=== PATIENT | male | born 1930 | race Two or more races ===

== ENCOUNTER 2017-01-14 14:09 | Inpatient (IN) | payer MEDICARE ==
[~2017-01-14] VITALS: Ht 165.1 cm; Wt 68.0 kg
[2017-01-14] MEDS ORDERED: ATIVAN0.5 MG ORAL (14:17)
[2017-01-14] MEDS ORDERED: AMLODIPINE BES2.5 MG ORAL (14:17)
[2017-01-14] MEDS ORDERED: WELLBUTRIN SR100 MG ORAL (14:17)
[2017-01-14] MEDS ORDERED: LEXAPRO10 MG ORAL (14:17)
--- NOTE | 2017-01-14 14:21 | Emergency Room Report ---
History of Present Illness General Chief Complaint: Chest Pain Source: Patient, Family Member, EMS Present Illness HPI Patient is 86-year-old male who presented after increased difficulty breathing and chest pain. The patient reportedly had been given aspirin, nitroglycerin in the field he denied any fever. He reports having increased swelling. He states he previously had been taking Bumex as well as Lasix. Patient not been having any cough. He reported having some increased the with difficulty breathing. He had been taking long-acting nitrates for chest pain in the past. Patient had been having increased abdominal pain Allergies: Coded Allergies: No Known Allergies (Unverified , 01/14/17) Patient History Past Medical History: see triage record Reviewed Nursing Documentation: PMH: Agreed, PSxH: Agreed Nursing Documentation-PMH Hx Hypertension: Yes History Of Psychiatric Problem: Yes - Depression Review of Systems All Other Systems: negative except mentioned in HPI Physical Exam Vital Signs Date Time Temp Pulse Resp B/P (MAP) Pulse Ox O2 Delivery O2 Flow Rate FiO2 01/14/17 14:10 78 16 144/73 94 Sp02 EP Interpretation: reviewed, normal General Appearance: normal inspection, alert, moderate distress, Chronically Ill Head: atraumatic ENT: normal ENT inspection, hearing grossly normal, normal voice Neck: normal inspection, full range of motion, supple, no bony tend Respiratory: normal inspection, lungs clear, normal breath sounds, no respiratory distress, no retraction, no wheezing Cardiovascular #1: regular rate, rhythm, edema Gastrointestinal: normal inspection, normal bowel sounds, non tender, soft, no guarding, no hernia Genitourinary: no CVA tenderness Musculoskeletal: normal inspection, back normal, normal range of motion Neurologic: normal inspection, alert, oriented x3, responsive, boot turner III-XII nml as tested, speech normal Psychiatric: normal inspection, judgement/insight normal, mood/affect normal Skin: normal inspection, normal color, no rash Medical Decision Making Diagnostic Impression: Primary Impression: Chest pain Additional Impression: Pneumonia ER Course Patient presented for chest pain 3 days. Differential diagnosis included but was not limited to acute coronary syndrome, pulmonary embolism, pneumonia, aortic dissection, shingles, pneumothorax, aortic dissection, esophageal rupture , pericarditis. Because of complexity of patient's case laboratory testing and imaging studies were ordered. EKG interpreted by me showed normal sinus rhythm with a rate of with a right bundle branch block with no acute st or t wave changes. The patient was noted to develop fever on emergency department 101. The patient given IV antibiotics. The laboratory testing was notable for elevated white blood count 19,000. Chest x-ray read by radiology showed cardiomegaly without evident infiltrate. Patient started on supplemental oxygen. CT of the abdomen pelvis was ordered due to patient's abdominal pain. The CT showed evidence of right lower lobe infiltrate consistent with pneumonia. Dr. Kennedy Ng was contacted for inpatient management due to complexity of medical condition. Labs Test 01/14/17 14:15 01/14/17 19:00 01/14/17 21:30 White Blood Count 19.2 K/UL (4.8-10.8) Red Blood Count 4.41 M/UL (4.70-6.10) Hemoglobin 13.5 G/DL (14.2-18.0) Hematocrit 40.6 % (42.0-52.0) Mean Corpuscular Volume 92 FL (80-99) Mean Corpuscular Hemoglobin 30.6 PG (27.0-31.0) Mean Corpuscular Hemoglobin Concent 33.2 G/DL (32.0-36.0) Red Cell Distribution Width 12.6 % (11.6-14.8) Platelet Count 275 K/UL (150-450) Mean Platelet Volume 6.1 FL (6.5-10.1) Neutrophils (%) (Auto) % (45.0-75.0) Lymphocytes (%) (Auto) % (20.0-45.0) Monocytes (%) (Auto) % (1.0-10.0) Eosinophils (%) (Auto) % (0.0-3.0) Basophils (%) (Auto) % (0.0-2.0) Differential Total Cells Counted 100 Neutrophils % (Manual) 81 % (45-75) Lymphocytes % (Manual) 5 % (20-45) Monocytes % (Manual) 3 % (1-10) Eosinophils % (Manual) 0 % (0-3) Basophils % (Manual) 0 % (0-2) Band Neutrophils 11 % (0-8) Platelet Estimate Adequate Platelet Morphology Normal Red Blood Cell Morphology Normal Sodium Level 140 MMOL/L (136-145) Potassium Level 4.6 MMOL/L (3.5-5.1) Chloride Level 106 MMOL/L (98-107) Carbon Dioxide Level 23 MMOL/L (21-32) Anion Gap 11 mmol/L (5-15) Blood Urea Nitrogen 27 mg/dL (7-18) Creatinine 1.7 MG/DL (0.55-1.30) Estimat Glomerular Filtration Rate mL/min (>60) Glucose Level 92 MG/DL (74-106) Calcium Level 9.3 MG/DL (8.5-10.1) Total Bilirubin 0.7 MG/DL (0.2-1.0) Aspartate Amino Transf (AST/SGOT) 25 U/L (15-37) Alanine Aminotransferase (ALT/SGPT) 21 U/L (12-78) Alkaline Phosphatase 102 U/L (46-116) Creatine Kinase MB 2.3 NG/ML (0.0-3.6) Creatine Kinase MB Relative Index 2.4 Troponin I 0.000 ng/mL (0.000-0.056) Pro-B-Type Natriuretic Peptide 58 pg/mL (0-125) Total Protein 7.5 G/DL (6.4-8.2) Albumin 3.5 G/DL (3.4-5.0) Globulin 4.0 g/dL Albumin/Globulin Ratio 0.9 (1.0-2.7) Uric Acid 5.7 MG/DL (2.6-7.2) Total Creatine Kinase 66 U/L (26-308) Urine Color Pale yellow Urine Appearance Clear Urine pH 5 (4.5-8.0) Urine Specific [place] 1.010 (1.005-1.035) Urine Protein Negative (NEGATIVE) Urine Glucose (UA) Negative (NEGATIVE) Urine Ketones Negative (NEGATIVE) Urine Occult Blood Negative (NEGATIVE) Urine Nitrite Negative (NEGATIVE) Urine Bilirubin Negative (NEGATIVE) Urine Urobilinogen Normal MG/DL (0.0-1.0) Urine Leukocyte Esterase Negative (NEGATIVE) Urine RBC 0-2 /HPF (0 - 0) Urine WBC 0-2 /HPF (0 - 0) Urine Squamous Epithelial Cells None /LPF (NONE/OCC) Urine Bacteria None /HPF (NONE) Urine Eosinophils None seen Urine Random Sodium 117 MEQ/L (20-110) Urine Potassium Timed 31 mmol/L (12-62) EKG Diagnostic Results Rate: normal Rhythm: NSR ST Segments: no acute changes Last Vital Signs Date Time Temp Pulse Resp B/P (MAP) Pulse Ox O2 Delivery O2 Flow Rate FiO2 01/14/17 14:10 78 16 144/73 94 Status: unchanged Disposition: ADMITTED INPATIENT Condition: Lexy ManishMaximilian Jan 14, 2017 14:21
[2017-01-14 14:29] LABS: MEAN CORPUSCULAR HEMOGLOBIN 30.6 PG (27.0-31.0); MEAN CORPUSCULAR HGB CONC 33.2 G/DL (32.0-36.0); MEAN CORPUSCULAR VOLUME 92 FL (80-99); MEAN PLATELET VOLUME 6.1 FL (6.5-10.1); PLATELET COUNT 275 K/UL (150-450); RED BLOOD COUNT 4.41 M/UL (4.70-6.10); RED CELL DISTRIBUTION WIDTH 12.6 % (11.6-14.8); WHITE BLOOD COUNT 19.2 K/UL (4.8-10.8)
[2017-01-14 14:37] LABS: ANION GAP 11 mmol/L (5-15); CALCIUM 9.3 MG/DL (8.5-10.1); CARBON DIOXIDE 23 MMOL/L (21-32); CHLORIDE 106 MMOL/L (98-107); CREATININE 1.7 MG/DL (0.55-1.30); POTASSIUM 4.6 MMOL/L (3.5-5.1); SODIUM 140 MMOL/L (136-145)
[2017-01-14 14:44] LABS: BAND NEUTROPHILS % (MANUAL) 11 % (0-8); BASOPHILS % (MANUAL) 0 % (0-2); EOSINOPHILS % (MANUAL) 0 % (0-3); LYMPHOCYTES % (MANUAL) 5 % (20-45); NEUTROPHILS % (MANUAL) 81 % (45-75); PLATELET ESTIMATE ADEQUATE; TOTAL CELLS COUNTED 100
[2017-01-14 14:45] LABS: PLATELET MORPHOLOGY NORMAL
[2017-01-14 14:54] LABS: ALANINE AMINOTRANSFERASE 21 U/L (12-78); ALBUMIN/GLOBULIN RATIO 0.9 (1.0-2.7); ASPARTATE AMINO TRANSFERASE 25 U/L (15-37); CKMB 2.3 NG/ML (0.0-3.6); TOTAL PROTEIN 7.5 G/DL (6.4-8.2)
[2017-01-14 14:55] VITALS: BP 143/59
[2017-01-14] MEDS ORDERED: Ampicillin/Sulbactam Sod 3 GM in NS 110 ML IVPB ONE (15:15)
[2017-01-14 15:22] LABS: APPEARANCE,URINE CLEAR; KETONES,URINE NEGATIVE (NEGATIVE); LEUKOCYTE ESTERASE ,URINE NEGATIVE (NEGATIVE); NITRITE,URINE NEGATIVE (NEGATIVE); PH,URINE 6 (4.5-8.0); PROTEIN,URINE NEGATIVE (NEGATIVE); UROBILINOGEN,URINE NORMAL MG/DL (0.0-1.0)
[2017-01-14] MEDS ORDERED: Unasyn 3gm Inj ONE (15:23)
--- NOTE | 2017-01-14 15:37 | Diagnostic Imaging Report ---
Indication: SOB Technique: One view of the chest Comparison: none Findings: Patient is rotated to the right. There is some atelectasis at the left lung base. The heart is mildly enlarged. The aorta is tortuous calcified and ectatic. Right paratracheal prominence, probably exaggerated by rotation, reflects ectatic vasculature Impression: No acute process. Findings as noted
[2017-01-14] MEDS ORDERED: Albuterol/Ipratropium 3ml neb HHN PRN (18:30)
[2017-01-14] MEDS ORDERED: Miralax 17gm pkt ORAL PRN (18:30)
[2017-01-14] MEDS ORDERED: Morphine Sulfate 4mg/ml Inj IVP PRN (18:30)
[2017-01-14] MEDS ORDERED: LORazepam Inj 2mg/ml 1ml IV PRN (18:30)
--- NOTE | 2017-01-14 18:48 | Consultation ---
History of Present Illness General Date patient seen: Jan 14, 2017 Chief Complaint: Chest Pain Reason for Consultation: pneumonia Present Illness HPI 86-year-old male with hx of CAD, CHF, presented to ER with CC of increased difficulty breathing and chest pain. He reports having increased swelling. . Patient not been having any cough. He reported having some increased the with difficulty breathing. Patient had been having increased abdominal pain. He was febrile in ER and his CXR showed infiltrate. He is admitted to [facility] for further work up. I saw him in ER bed 3. Allergies: Coded Allergies: No Known Allergies (Unverified , 01/14/17) Medication History Scheduled Amlodipine Besylate* (Amlodipine Besylate*), 2.5 MG ORAL DAILY, (Reported) Bupropion Sr* (Wellbutrin Sr*), 100 MG ORAL TWICE A DAY, (Reported) Escitalopram Oxalate* (Lexapro*), 10 MG ORAL DAILY, (Reported) Lorazepam* (Ativan*), 0.5 MG ORAL THREE TIMES A DAY, (Reported) Patient History Healthcare decision maker ALBA DUNCAN Resuscitation status Advanced Directive on File No Past Medical/Surgical History Past Medical/Surgical History: (1) CAD (coronary artery disease) (2) CHF (congestive heart failure) Review of Systems Constitutional: Reports: no symptoms Eye: Reports: no symptoms Physical Exam General Appearance: WD/WN Lines, tubes and drains: peripheral HEENT: normocephalic, atraumatic Respiratory/Chest: chest wall non-tender, lungs clear Breasts: no masses Cardiovascular/Chest: normal peripheral pulses Abdomen: normal bowel sounds, non tender Genitourinary/Rectal: normal genital exam Extremities: normal range of motion Skin Exam: normal pigmentation Neurologic: plumber maintenance II-XII grossly normal Last 24 Hour Vital Signs Date Time Temp Pulse Resp B/P (MAP) Pulse Ox O2 Delivery O2 Flow Rate FiO2 01/14/17 14:55 101.4 74 20 143/59 94 Room Air 01/14/17 14:30 78 16 01/14/17 14:10 78 16 144/73 94 Laboratory Tests Test 01/14/17 14:15 01/14/17 14:42 White Blood Count 19.2 K/UL (4.8-10.8) H Red Blood Count 4.41 M/UL (4.70-6.10) L Hemoglobin 13.5 G/DL (14.2-18.0) L Hematocrit 40.6 % (42.0-52.0) L Mean Corpuscular Volume 92 FL (80-99) Mean Corpuscular Hemoglobin 30.6 PG (27.0-31.0) Mean Corpuscular Hemoglobin Concent 33.2 G/DL (32.0-36.0) Red Cell Distribution Width 12.6 % (11.6-14.8) Platelet Count 275 K/UL (150-450) Mean Platelet Volume 6.1 FL (6.5-10.1) L Neutrophils (%) (Auto) % (45.0-75.0) Lymphocytes (%) (Auto) % (20.0-45.0) Monocytes (%) (Auto) % (1.0-10.0) Eosinophils (%) (Auto) % (0.0-3.0) Basophils (%) (Auto) % (0.0-2.0) Differential Total Cells Counted 100 Neutrophils % (Manual) 81 % (45-75) H Lymphocytes % (Manual) 5 % (20-45) L Monocytes % (Manual) 3 % (1-10) Eosinophils % (Manual) 0 % (0-3) Basophils % (Manual) 0 % (0-2) Band Neutrophils 11 % (0-8) H Platelet Estimate Adequate Platelet Morphology Normal Red Blood Cell Morphology Normal Sodium Level 140 MMOL/L (136-145) Potassium Level 4.6 MMOL/L (3.5-5.1) Chloride Level 106 MMOL/L (98-107) Carbon Dioxide Level 23 MMOL/L (21-32) Anion Gap 11 mmol/L (5-15) Blood Urea Nitrogen 27 mg/dL (7-18) H Creatinine 1.7 MG/DL (0.55-1.30) H Estimat Glomerular Filtration Rate mL/min (>60) Glucose Level 92 MG/DL (74-106) Calcium Level 9.3 MG/DL (8.5-10.1) Total Bilirubin 0.7 MG/DL (0.2-1.0) Aspartate Amino Transf (AST/SGOT) 25 U/L (15-37) Alanine Aminotransferase (ALT/SGPT) 21 U/L (12-78) Alkaline Phosphatase 102 U/L (46-116) Total Creatine Kinase 95 U/L (26-308) Creatine Kinase MB 2.3 NG/ML (0.0-3.6) Creatine Kinase MB Relative Index 2.4 Troponin I 0.000 ng/mL (0.000-0.056) Pro-B-Type Natriuretic Peptide 58 pg/mL (0-125) Total Protein 7.5 G/DL (6.4-8.2) Albumin 3.5 G/DL (3.4-5.0) Globulin 4.0 g/dL Albumin/Globulin Ratio 0.9 (1.0-2.7) L Urine Color Yellow Urine Appearance Clear Urine pH 6 (4.5-8.0) Urine Specific [place] 1.010 (1.005-1.035) Urine Protein Negative (NEGATIVE) Urine Glucose (UA) Negative (NEGATIVE) Urine Ketones Negative (NEGATIVE) Urine Occult Blood Negative (NEGATIVE) Urine Nitrite Negative (NEGATIVE) Urine Bilirubin Negative (NEGATIVE) Urine Urobilinogen Normal MG/DL (0.0-1.0) Urine Leukocyte Esterase Negative (NEGATIVE) Height (Feet): 5 Height (Inches): 4.00 Weight (Pounds): 150 Medications Current Medications Medications (Trade) Dose Ordered Sig/Huma Route PRN Reason Start Time Stop Time Status Last Admin Dose Admin Acetaminophen (Tylenol) 650 mg Q4H PRN ORAL FEVER 01/14/17 18:30 02/13/17 18:29 UNV Albuterol/ Ipratropium (Albuterol/ Ipratropium) 3 ml EVERY 4 HOURS PRN HHN Shortness of Breath 01/14/17 18:30 01/19/17 18:29 UNV Amlodipine Besylate (Norvasc) 2.5 mg DAILY ORAL 01/15/17 09:00 02/14/17 08:59 UNV Bupropion HCl (Wellbutrin SR) 100 mg TWICE A DAY ORAL 01/15/17 09:00 02/14/17 08:59 UNV Cefepime HCl 2 gm/ Dextrose 110 ml @ 220 mls/hr EVERY 12 HOURS IV 01/14/17 21:00 01/21/17 20:59 UNV Dextrose (Dextrose 50%) STAT PRN IV Hypoglycemia 01/14/17 18:30 02/13/17 18:29 UNV Escitalopram Oxalate (Lexapro) 10 mg DAILY ORAL 01/15/17 09:00 02/14/17 08:59 UNV Heparin Sodium (Porcine) (Heparin 5000 units/ml) 5,000 units EVERY 12 HOURS SUBQ 01/14/17 21:00 02/13/17 20:59 UNV Lorazepam (Ativan 2mg/ml 1ml) 2 mg EVERY 2 HOURS PRN IV For Anxiety 01/14/17 18:30 01/21/17 18:29 UNV Lorazepam (Ativan) 0.5 mg THREE TIMES A DAY ORAL 01/15/17 09:00 01/22/17 08:59 UNV Morphine Sulfate (Morphine Sulfate) 4 mg EVERY 4 HOURS PRN IVP Severe Pain (Pain Scale 7-10) 01/14/17 18:30 01/21/17 18:29 UNV Ondansetron HCl (Zofran) 4 mg Q6H PRN IVP Nausea & Vomiting 01/14/17 18:30 02/13/17 18:29 UNV Polyethylene Glycol (Miralax) 17 gm DAILYPRN PRN ORAL Constipation 01/14/17 18:30 02/13/17 18:29 UNV Sodium Chloride 1,000 ml @ 50 mls/hr Q20H IV 01/14/17 18:30 02/13/17 18:29 UNV Vancomycin HCl 1 gm/Dextrose 275 ml @ 183.3 mls/ hr Q24H IV 01/14/17 23:00 01/19/17 22:59 UNV Assessment/Plan Problem List: (1) CHF (congestive heart failure) ICD Codes: I50.9 - Heart failure, unspecified SNOMED: 37496147 (2) CAD (coronary artery disease) ICD Codes: I25.10 - Atherosclerotic heart disease of [place] coronary artery without angina pectoris SNOMED: 50812970 (3) Pneumonia ICD Codes: J18.9 - Pneumonia, unspecified organism SNOMED: 001764700 Assessment/Plan respiratory treatment IV abx chest pt titrate fio2 to sat of 92% check electrolytes, wbc ARYAN GRIFFIN Jan 14, 2017 18:48
[2017-01-14 19:45] LABS: URIC ACID 5.7 MG/DL (2.6-7.2)
[2017-01-14 20:00] VITALS: BP_SYST 106; BP_SYST 56; BP_DIAS 56; BP_DIAS 59
[2017-01-14] MEDS ORDERED: Cefepime 2gm in D5W 55ml IVPB ONE (20:30)
[2017-01-14] MEDS ORDERED: Cefepime HCl 2 GM in D5W 110 ML IV SCH (21:00)
[2017-01-14] MEDS ORDERED: Vancomycin 1 GM in D5W 275 ML IVPB SCH (21:00)
[2017-01-14] MEDS: Heparin 5000 units/ml inj SUBQ SCH (21:16)
[2017-01-14 21:53] LABS: APPEARANCE,URINE CLEAR; KETONES,URINE NEGATIVE (NEGATIVE); LEUKOCYTE ESTERASE ,URINE NEGATIVE (NEGATIVE); NITRITE,URINE NEGATIVE (NEGATIVE); PH,URINE 5 (4.5-8.0); PROTEIN,URINE NEGATIVE (NEGATIVE); UROBILINOGEN,URINE NORMAL MG/DL (0.0-1.0)
[2017-01-14 22:01] LABS: RBC,URINE 0-2 /HPF (0 - 0); WBC,URINE 0-2 /HPF (0 - 0)
--- NOTE | 2017-01-14 23:41 | History & Physical ---
History and Physical History & Physicial H & P Dictated Job # Kennedy Ng MD Jan 14, 2017 23:41
[2017-01-15] VITALS: BP 117/59
[2017-01-15 04:00] VITALS: BP 130/76
[2017-01-15 07:31] LABS: BASOPHILS % (AUTO) 0.5 % (0.0-2.0); EOSINOPHILS % (AUTO) 1.8 % (0.0-3.0); MEAN CORPUSCULAR HGB CONC 33.8 G/DL (32.0-36.0); MEAN CORPUSCULAR VOLUME 92 FL (80-99); MEAN PLATELET VOLUME 5.6 FL (6.5-10.1); MONOCYTES % (AUTO) 6.2 % (1.0-10.0); NEUTROPHILS % (AUTO) 79.5 % (45.0-75.0); PLATELET COUNT 249 K/UL (150-450); RED BLOOD COUNT 3.94 M/UL (4.70-6.10); RED CELL DISTRIBUTION WIDTH 12.4 % (11.6-14.8)
[2017-01-15 07:50] LABS: ANION GAP 7 mmol/L (5-15); CALCIUM 9.1 MG/DL (8.5-10.1); CARBON DIOXIDE 27 MMOL/L (21-32); CHLORIDE 105 MMOL/L (98-107); CREATININE 1.5 MG/DL (0.55-1.30); PHOSPHORUS 3.3 MG/DL (2.5-4.9); POTASSIUM 3.9 MMOL/L (3.5-5.1); SODIUM 139 MMOL/L (136-145)
[2017-01-15 08:00] VITALS: BP 142/70
--- NOTE | 2017-01-15 08:30 | Diagnostic Imaging Report ---
Indication: Abdominal pain Technique: CT of the abdomen and pelvis utilizing automated exposure control without intravenous or oral contrast. CT dose: Total DLP 769 mGycm; CTDI vol 14.3 mGy Comparison: None Findings: Please note that evaluation of the abdominal pelvis is limited without the use of intravenous and oral contrast. Within these limitations, the following observations are made: Groundglass opacities with more solid consolidations in the right middle and lower lobes concerning for pneumonia. No pleural effusion or pneumothorax. Dependent atelectasis noted in the left base. Heart size within normal limits. There is a trace pericardial effusion. Coronary arterial calcifications are noted. There is a low-attenuation lesion in the medial liver which is too small to fully characterize but may represent a simple hepatic cyst. There is diffusely decreased hepatic attenuation likely reflective of hepatic steatosis. Punctate calcifications are noted within the liver. Gallbladder is mildly distended. No pericholecystic inflammatory change. Noncontrast evaluation of the spleen, adrenal glands and pancreas is grossly unremarkable. There is nonspecific bilateral perinephric stranding. No renal stones are appreciated bilaterally. There are multiple small hyperdense rounded lesions which may represent hemorrhagic or proteinaceous cyst. There is fullness of the right renal collecting system. Ureters are nondilated. The bladder is moderately distended. The prostate is enlarged, predominantly the central gland, it is heterogeneous in attenuation and contains coarse central calcifications. There is a small hiatal hernia. There is questionable thickening of the stomach which may be related to underdistention however true stomach thickening/mass is not excludable. There is no bowel obstruction. There is diverticulosis without evidence to suggest acute diverticulitis. There is no free intraperitoneal fluid or air. Abdominal aorta is moderate to severely calcified but normal in caliber. Fat-containing left inguinal hernia. Hernia just the right of midline in the pelvis containing only fat. Scoliosis with multilevel degenerative changes noted in the thoracolumbar spine. No acute osseous abnormality is appreciated. Impression: * Groundglass opacities and patchy consolidations in the right middle and lower lobe. Findings are concerning for pneumonia. * Diverticulosis without evidence of acute diverticulitis. * Moderately distended bladder with enlarged, heterogeneous prostate. Correlate for degree of bladder outlet obstruction. There is herniation of portions of the bladder via a right inguinal hernia. * Small hiatal hernia. Apparent thickening of the stomach, poorly evaluated without p.o. contrast. True gastric thickening/mass not excludable. Correlate clinically. Consider endoscopy. * Multiple lesions in the kidneys, and which demonstrate increased density and may be hemorrhagic or pertinacious cyst. Contrast-enhanced exam or ultrasound would provide better assessment. * Hepatic steatosis. * Coronary artery disease. * Trace pericardial effusion. Additional findings as above. This corresponds with the preliminary report. The CT scanner at [facility] is accredited by the [employer] and the scans are performed using protocols designed to limit radiation exposure to as low as reasonably achievable to attain images of sufficient resolution adequate for diagnostic evaluation.
[2017-01-15] MEDS: BuPROPion SR 100mg tab ORAL SCH ×2 (09:00→18:23)
[2017-01-15] MEDS: LORazepam 0.5mg tab ORAL SCH ×3 (09:00→18:23)
[2017-01-15] MEDS: Heparin 5000 units/ml inj SUBQ SCH ×2 (09:00→21:22)
[2017-01-15] MEDS ORDERED: Aspirin Baby 81mg ORAL SCH (10:45)
--- NOTE | 2017-01-15 10:52 | Internal Med Progress Note ---
Subjective Physician Name Kennedy Ng Attending Physician Kennedy Ng MD Current Medications Medications (Trade) Dose Ordered Sig/Huma Route PRN Reason Start Time Stop Time Status Last Admin Dose Admin Acetaminophen (Tylenol) 650 mg Q4H PRN ORAL FEVER 01/14/17 18:30 02/13/17 18:29 Albuterol/ Ipratropium (Albuterol/ Ipratropium) 3 ml Q4H PRN HHN Shortness of Breath 01/14/17 18:30 01/19/17 18:29 Amlodipine Besylate (Norvasc) 2.5 mg DAILY ORAL 01/15/17 09:00 02/14/17 08:59 Bupropion HCl (Wellbutrin SR) 100 mg TWICE A DAY ORAL 01/15/17 09:00 02/14/17 08:59 Cefepime HCl 1 gm/ Dextrose 55 ml @ 110 mls/hr Q24H IVPB 01/15/17 20:30 01/22/17 20:29 Dextrose (Dextrose 50%) STAT PRN IV Hypoglycemia 01/14/17 18:30 02/13/17 18:29 Escitalopram Oxalate (Lexapro) 10 mg DAILY ORAL 01/15/17 09:00 02/14/17 08:59 Heparin Sodium (Porcine) (Heparin 5000 units/ml) 5,000 units EVERY 12 HOURS SUBQ 01/14/17 21:00 02/13/17 20:59 01/14/17 21:16 Lorazepam (Ativan 2mg/ml 1ml) 2 mg Q2H PRN IV For Anxiety 01/14/17 18:30 01/21/17 18:29 Lorazepam (Ativan) 0.5 mg THREE TIMES A DAY ORAL 01/15/17 09:00 01/22/17 08:59 Morphine Sulfate (Morphine Sulfate) 4 mg Q4H PRN IVP Severe Pain (Pain Scale 7-10) 01/14/17 18:30 01/21/17 18:29 Ondansetron HCl (Zofran) 4 mg Q6H PRN IVP Nausea & Vomiting 01/14/17 18:30 02/13/17 18:29 Polyethylene Glycol (Miralax) 17 gm DAILYPRN PRN ORAL Constipation 01/14/17 18:30 02/13/17 18:29 Sodium Chloride 1,000 ml @ 50 mls/hr Q20H IV 01/14/17 19:30 02/13/17 19:29 01/14/17 21:13 Vancomycin HCl (Vanco rx to dose) 1 ea DAILY PRN MISC PRN RX TO DOSE PROTOCOL 01/14/17 19:15 02/13/17 19:14 Vancomycin HCl 1 gm/Dextrose 275 ml @ 183.3 mls/ hr Q24H IVPB 01/14/17 21:00 01/19/17 20:59 01/14/17 21:13 Allergies: Coded Allergies: No Known Allergies (Unverified , 01/14/17) Subjective awake, alert, responsive, No CP or SOB, video swallow study done, son at bedside Objective Last Vital Signs Date Time Temp Pulse Resp B/P (MAP) Pulse Ox O2 Delivery O2 Flow Rate FiO2 01/15/17 08:00 97.6 60 142/70 01/15/17 07:45 16 Room Air 01/15/17 04:00 94 Laboratory Tests Test 01/14/17 14:15 01/14/17 14:42 01/14/17 19:00 01/14/17 21:30 White Blood Count 19.2 K/UL (4.8-10.8) H Red Blood Count 4.41 M/UL (4.70-6.10) L Hemoglobin 13.5 G/DL (14.2-18.0) L Hematocrit 40.6 % (42.0-52.0) L Mean Corpuscular Volume 92 FL (80-99) Mean Corpuscular Hemoglobin 30.6 PG (27.0-31.0) Mean Corpuscular Hemoglobin Concent 33.2 G/DL (32.0-36.0) Red Cell Distribution Width 12.6 % (11.6-14.8) Platelet Count 275 K/UL (150-450) Mean Platelet Volume 6.1 FL (6.5-10.1) L Neutrophils (%) (Auto) % (45.0-75.0) Lymphocytes (%) (Auto) % (20.0-45.0) Monocytes (%) (Auto) % (1.0-10.0) Eosinophils (%) (Auto) % (0.0-3.0) Basophils (%) (Auto) % (0.0-2.0) Differential Total Cells Counted 100 Neutrophils % (Manual) 81 % (45-75) H Lymphocytes % (Manual) 5 % (20-45) L Monocytes % (Manual) 3 % (1-10) Eosinophils % (Manual) 0 % (0-3) Basophils % (Manual) 0 % (0-2) Band Neutrophils 11 % (0-8) H Platelet Estimate Adequate Platelet Morphology Normal Red Blood Cell Morphology Normal Sodium Level 140 MMOL/L (136-145) Potassium Level 4.6 MMOL/L (3.5-5.1) Chloride Level 106 MMOL/L (98-107) Carbon Dioxide Level 23 MMOL/L (21-32) Anion Gap 11 mmol/L (5-15) Blood Urea Nitrogen 27 mg/dL (7-18) H Creatinine 1.7 MG/DL (0.55-1.30) H Estimat Glomerular Filtration Rate mL/min (>60) Glucose Level 92 MG/DL (74-106) Calcium Level 9.3 MG/DL (8.5-10.1) Total Bilirubin 0.7 MG/DL (0.2-1.0) Aspartate Amino Transf (AST/SGOT) 25 U/L (15-37) Alanine Aminotransferase (ALT/SGPT) 21 U/L (12-78) Alkaline Phosphatase 102 U/L (46-116) Total Creatine Kinase 95 U/L (26-308) 66 U/L (26-308) Creatine Kinase MB 2.3 NG/ML (0.0-3.6) Creatine Kinase MB Relative Index 2.4 Troponin I 0.000 ng/mL (0.000-0.056) Pro-B-Type Natriuretic Peptide 58 pg/mL (0-125) Total Protein 7.5 G/DL (6.4-8.2) Albumin 3.5 G/DL (3.4-5.0) Globulin 4.0 g/dL Albumin/Globulin Ratio 0.9 (1.0-2.7) L Urine Color Yellow Pale yellow Urine Appearance Clear Clear Urine pH 6 (4.5-8.0) 5 (4.5-8.0) Urine Specific [place] 1.010 (1.005-1.035) 1.010 (1.005-1.035) Urine Protein Negative (NEGATIVE) Negative (NEGATIVE) Urine Glucose (UA) Negative (NEGATIVE) Negative (NEGATIVE) Urine Ketones Negative (NEGATIVE) Negative (NEGATIVE) Urine Occult Blood Negative (NEGATIVE) Negative (NEGATIVE) Urine Nitrite Negative (NEGATIVE) Negative (NEGATIVE) Urine Bilirubin Negative (NEGATIVE) Negative (NEGATIVE) Urine Urobilinogen Normal MG/DL (0.0-1.0) Normal MG/DL (0.0-1.0) Urine Leukocyte Esterase Negative (NEGATIVE) Negative (NEGATIVE) Uric Acid 5.7 MG/DL (2.6-7.2) Urine RBC 0-2 /HPF (0 - 0) H Urine WBC 0-2 /HPF (0 - 0) Urine Squamous Epithelial Cells None /LPF (NONE/OCC) Urine Bacteria None /HPF (NONE) Urine Eosinophils None seen Urine Random Sodium 117 MEQ/L (20-110) H Urine Potassium Timed 31 mmol/L (12-62) Test 01/15/17 06:05 White Blood Count 16.0 K/UL (4.8-10.8) H Red Blood Count 3.94 M/UL (4.70-6.10) L Hemoglobin 12.2 G/DL (14.2-18.0) L Hematocrit 36.2 % (42.0-52.0) L Mean Corpuscular Volume 92 FL (80-99) Mean Corpuscular Hemoglobin 31.0 PG (27.0-31.0) Mean Corpuscular Hemoglobin Concent 33.8 G/DL (32.0-36.0) Red Cell Distribution Width 12.4 % (11.6-14.8) Platelet Count 249 K/UL (150-450) Mean Platelet Volume 5.6 FL (6.5-10.1) L Neutrophils (%) (Auto) 79.5 % (45.0-75.0) H Lymphocytes (%) (Auto) 12.0 % (20.0-45.0) L Monocytes (%) (Auto) 6.2 % (1.0-10.0) Eosinophils (%) (Auto) 1.8 % (0.0-3.0) Basophils (%) (Auto) 0.5 % (0.0-2.0) Sodium Level 139 MMOL/L (136-145) Potassium Level 3.9 MMOL/L (3.5-5.1) Chloride Level 105 MMOL/L (98-107) Carbon Dioxide Level 27 MMOL/L (21-32) Anion Gap 7 mmol/L (5-15) Blood Urea Nitrogen 27 mg/dL (7-18) H Creatinine 1.5 MG/DL (0.55-1.30) H Estimat Glomerular Filtration Rate mL/min (>60) Glucose Level 93 MG/DL (74-106) Calcium Level 9.1 MG/DL (8.5-10.1) Phosphorus Level 3.3 MG/DL (2.5-4.9) Albumin 3.1 G/DL (3.4-5.0) L Objective General: No acute distress, awake and alert HEENT: NCAT, sclera anicteric, PERRL, EOMI. Neck: Supple, no significant jugular venous distention, Lungs: Good inspiratory effort, clear to auscultation bilaterally, no Wheeze or Rales. Heart: Regular rate and rhythm, Distant heart sound, normal S1/S2, no murmurs Abdomen: soft, nontender, nondistended. Normoactive bowel sounds. Obesity. / Rectal: Refused and deferred. Extremities: No Cyanosis , clubbing or edema. Neuro: A&O x 3, Able to move all extremities Skin: warm, no rashes Psych: Normal mood and affect Assessment/Plan Assessment/Plan Aspiration Pneumonia, Chest pain R/O ACS CAD ASHD HTN CKD BPH Thickening of the stomach possible PUD Anxiety / Depression Plan: Abx: Cefepime and Flagyl Full code Heparin SQ Renal Us 2D Echo monitor labs and cultures CT chest and abdomen: Impression: * Groundglass opacities and patchy consolidations in the right middle and lower lobe. Findings are concerning for pneumonia. * Diverticulosis without evidence of acute diverticulitis. * Moderately distended bladder with enlarged, heterogeneous prostate. Correlate for degree of bladder outlet obstruction. There is herniation of portions of the bladder via a right inguinal hernia. * Small hiatal hernia. Apparent thickening of the stomach, poorly evaluated without p.o. contrast. True gastric thickening/mass not excludable. Correlate clinically. Consider endoscopy. * Multiple lesions in the kidneys, and which demonstrate increased density and may be hemorrhagic or pertinacious cyst. Contrast-enhanced exam or ultrasound would provide better assessment. * Hepatic steatosis. * Coronary artery disease. * Trace pericardial effusion. Kennedy Ng MD Jan 15, 2017 10:52
--- NOTE | 2017-01-15 11:26 | Cardiology Report ---
APPROVED REPORT EKG Measurement Heart [id number] Normal sinus rhythm Right bundle branch block Abnormal ECG
[2017-01-15 12:00] VITALS: BP 133/70
--- NOTE | 2017-01-15 12:50 | General Progress Note ---
Progress Note Progress Note [id number] full consult dictated KATIE NEWSOME Jan 15, 2017 12:50
--- NOTE | 2017-01-15 12:57 | Consultation ---
History of Present Illness General Date patient seen: Jan 15, 2017 Time patient seen: 13:20 Chief Complaint: Chest Pain Present Illness HPI 86 y/o M with hx of CAD, HTN, CKD, BPH, CHF, Anxiety/Depression presents to ED on 01/14 with increasing SOB and CP, leg swelling and abdominal pain. Denied fever/chills, cough, n/v/d. Allergies: Coded Allergies: No Known Allergies (Unverified , 01/14/17) Medication History Scheduled Amlodipine Besylate* (Amlodipine Besylate*), 2.5 MG ORAL DAILY, (Reported) Bupropion Sr* (Wellbutrin Sr*), 100 MG ORAL TWICE A DAY, (Reported) Escitalopram Oxalate* (Lexapro*), 10 MG ORAL DAILY, (Reported) Lorazepam* (Ativan*), 0.5 MG ORAL THREE TIMES A DAY, (Reported) Patient History Healthcare decision maker ALBA DUNCAN Resuscitation status Full Code Advanced Directive on File No Patient History Narrative Pmhx: as above Shx reviewed Fhx non contributory Review of Systems All Other Systems: negative except mentioned in HPI Physical Exam Physical Exam Narrative General: No acute distress, awake and alert HEENT: NCAT, sclera anicteric, PERRL, EOMI. Neck: Supple, no significant jugular venous distention, Lungs: Good inspiratory effort, clear to auscultation bilaterally, no Wheeze or Rales. Heart: Regular rate and rhythm, normal S1/S2, no murmurs Abdomen: soft, nontender, nondistended. Normoactive bowel sounds. Obesity. / Rectal: Refused and deferred. Extremities: No Cyanosis , clubbing or edema. Neuro: A&O x 3, Able to move all extremities Skin: warm, no rashes Psych: Normal mood and affect Last 24 Hour Vital Signs Date Time Temp Pulse Resp B/P (MAP) Pulse Ox O2 Delivery O2 Flow Rate FiO2 01/15/17 09:00 60 142/70 01/15/17 08:00 97.6 60 142/70 01/15/17 07:45 66 16 Room Air 01/15/17 04:00 98.6 63 20 130/76 94 Room Air 01/15/17 03:38 56 01/15/17 00:00 97.0 61 20 117/59 95 01/14/17 23:36 58 01/14/17 20:22 76 18 Room Air 01/14/17 20:00 98.2 64 16 106/56 93 01/14/17 19:39 63 01/14/17 19:29 101.4 74 20 143/59 94 Room Air 01/14/17 14:55 101.4 74 20 143/59 94 Room Air 01/14/17 14:30 78 16 01/14/17 14:10 78 16 144/73 94 Laboratory Tests Test 01/14/17 14:15 01/14/17 14:42 01/14/17 19:00 01/14/17 21:30 White Blood Count 19.2 K/UL (4.8-10.8) H Red Blood Count 4.41 M/UL (4.70-6.10) L Hemoglobin 13.5 G/DL (14.2-18.0) L Hematocrit 40.6 % (42.0-52.0) L Mean Corpuscular Volume 92 FL (80-99) Mean Corpuscular Hemoglobin 30.6 PG (27.0-31.0) Mean Corpuscular Hemoglobin Concent 33.2 G/DL (32.0-36.0) Red Cell Distribution Width 12.6 % (11.6-14.8) Platelet Count 275 K/UL (150-450) Mean Platelet Volume 6.1 FL (6.5-10.1) L Neutrophils (%) (Auto) % (45.0-75.0) Lymphocytes (%) (Auto) % (20.0-45.0) Monocytes (%) (Auto) % (1.0-10.0) Eosinophils (%) (Auto) % (0.0-3.0) Basophils (%) (Auto) % (0.0-2.0) Differential Total Cells Counted 100 Neutrophils % (Manual) 81 % (45-75) H Lymphocytes % (Manual) 5 % (20-45) L Monocytes % (Manual) 3 % (1-10) Eosinophils % (Manual) 0 % (0-3) Basophils % (Manual) 0 % (0-2) Band Neutrophils 11 % (0-8) H Platelet Estimate Adequate Platelet Morphology Normal Red Blood Cell Morphology Normal Sodium Level 140 MMOL/L (136-145) Potassium Level 4.6 MMOL/L (3.5-5.1) Chloride Level 106 MMOL/L (98-107) Carbon Dioxide Level 23 MMOL/L (21-32) Anion Gap 11 mmol/L (5-15) Blood Urea Nitrogen 27 mg/dL (7-18) H Creatinine 1.7 MG/DL (0.55-1.30) H Estimat Glomerular Filtration Rate mL/min (>60) Glucose Level 92 MG/DL (74-106) Calcium Level 9.3 MG/DL (8.5-10.1) Total Bilirubin 0.7 MG/DL (0.2-1.0) Aspartate Amino Transf (AST/SGOT) 25 U/L (15-37) Alanine Aminotransferase (ALT/SGPT) 21 U/L (12-78) Alkaline Phosphatase 102 U/L (46-116) Total Creatine Kinase 95 U/L (26-308) 66 U/L (26-308) Creatine Kinase MB 2.3 NG/ML (0.0-3.6) Creatine Kinase MB Relative Index 2.4 Troponin I 0.000 ng/mL (0.000-0.056) Pro-B-Type Natriuretic Peptide 58 pg/mL (0-125) Total Protein 7.5 G/DL (6.4-8.2) Albumin 3.5 G/DL (3.4-5.0) Globulin 4.0 g/dL Albumin/Globulin Ratio 0.9 (1.0-2.7) L Urine Color Yellow Pale yellow Urine Appearance Clear Clear Urine pH 6 (4.5-8.0) 5 (4.5-8.0) Urine Specific [place] 1.010 (1.005-1.035) 1.010 (1.005-1.035) Urine Protein Negative (NEGATIVE) Negative (NEGATIVE) Urine Glucose (UA) Negative (NEGATIVE) Negative (NEGATIVE) Urine Ketones Negative (NEGATIVE) Negative (NEGATIVE) Urine Occult Blood Negative (NEGATIVE) Negative (NEGATIVE) Urine Nitrite Negative (NEGATIVE) Negative (NEGATIVE) Urine Bilirubin Negative (NEGATIVE) Negative (NEGATIVE) Urine Urobilinogen Normal MG/DL (0.0-1.0) Normal MG/DL (0.0-1.0) Urine Leukocyte Esterase Negative (NEGATIVE) Negative (NEGATIVE) Uric Acid 5.7 MG/DL (2.6-7.2) Urine RBC 0-2 /HPF (0 - 0) H Urine WBC 0-2 /HPF (0 - 0) Urine Squamous Epithelial Cells None /LPF (NONE/OCC) Urine Bacteria None /HPF (NONE) Urine Eosinophils None seen Urine Random Sodium 117 MEQ/L (20-110) H Urine Potassium Timed 31 mmol/L (12-62) Test 01/15/17 06:05 White Blood Count 16.0 K/UL (4.8-10.8) H Red Blood Count 3.94 M/UL (4.70-6.10) L Hemoglobin 12.2 G/DL (14.2-18.0) L Hematocrit 36.2 % (42.0-52.0) L Mean Corpuscular Volume 92 FL (80-99) Mean Corpuscular Hemoglobin 31.0 PG (27.0-31.0) Mean Corpuscular Hemoglobin Concent 33.8 G/DL (32.0-36.0) Red Cell Distribution Width 12.4 % (11.6-14.8) Platelet Count 249 K/UL (150-450) Mean Platelet Volume 5.6 FL (6.5-10.1) L Neutrophils (%) (Auto) 79.5 % (45.0-75.0) H Lymphocytes (%) (Auto) 12.0 % (20.0-45.0) L Monocytes (%) (Auto) 6.2 % (1.0-10.0) Eosinophils (%) (Auto) 1.8 % (0.0-3.0) Basophils (%) (Auto) 0.5 % (0.0-2.0) Sodium Level 139 MMOL/L (136-145) Potassium Level 3.9 MMOL/L (3.5-5.1) Chloride Level 105 MMOL/L (98-107) Carbon Dioxide Level 27 MMOL/L (21-32) Anion Gap 7 mmol/L (5-15) Blood Urea Nitrogen 27 mg/dL (7-18) H Creatinine 1.5 MG/DL (0.55-1.30) H Estimat Glomerular Filtration Rate mL/min (>60) Glucose Level 93 MG/DL (74-106) Calcium Level 9.1 MG/DL (8.5-10.1) Phosphorus Level 3.3 MG/DL (2.5-4.9) Albumin 3.1 G/DL (3.4-5.0) L Height (Feet): 5 Height (Inches): 4.00 Weight (Pounds): 150 Medications Current Medications Medications (Trade) Dose Ordered Sig/Huma Route PRN Reason Start Time Stop Time Status Last Admin Dose Admin Acetaminophen (Tylenol) 650 mg Q4H PRN ORAL FEVER 01/14/17 18:30 02/13/17 18:29 Albuterol/ Ipratropium (Albuterol/ Ipratropium) 3 ml Q4H PRN HHN Shortness of Breath 01/14/17 18:30 01/19/17 18:29 Amlodipine Besylate (Norvasc) 2.5 mg DAILY ORAL 01/15/17 09:00 02/14/17 08:59 01/15/17 09:00 Aspirin (ASA) 81 mg DAILY ORAL 01/15/17 10:45 02/14/17 10:44 01/15/17 11:30 Bupropion HCl (Wellbutrin SR) 100 mg TWICE A DAY ORAL 01/15/17 09:00 02/14/17 08:59 01/15/17 09:00 Cefepime HCl 1 gm/ Dextrose 55 ml @ 110 mls/hr Q24H IVPB 01/15/17 20:30 01/22/17 20:29 Dextrose (Dextrose 50%) STAT PRN IV Hypoglycemia 01/14/17 18:30 02/13/17 18:29 Escitalopram Oxalate (Lexapro) 10 mg DAILY ORAL 01/15/17 09:00 02/14/17 08:59 01/15/17 09:00 Heparin Sodium (Porcine) (Heparin 5000 units/ml) 5,000 units EVERY 12 HOURS SUBQ 01/14/17 21:00 02/13/17 20:59 01/15/17 09:00 Lorazepam (Ativan 2mg/ml 1ml) 2 mg Q2H PRN IV For Anxiety 01/14/17 18:30 01/21/17 18:29 Lorazepam (Ativan) 0.5 mg THREE TIMES A DAY ORAL 01/15/17 09:00 01/22/17 08:59 01/15/17 09:00 Metronidazole 100 ml @ 100 mls/hr Q8HR IVPB 01/15/17 14:00 01/22/17 13:59 Morphine Sulfate (Morphine Sulfate) 4 mg Q4H PRN IVP Severe Pain (Pain Scale 7-10) 01/14/17 18:30 01/21/17 18:29 Ondansetron HCl (Zofran) 4 mg Q6H PRN IVP Nausea & Vomiting 01/14/17 18:30 02/13/17 18:29 Polyethylene Glycol (Miralax) 17 gm DAILYPRN PRN ORAL Constipation 01/14/17 18:30 02/13/17 18:29 Sodium Chloride 1,000 ml @ 50 mls/hr Q20H IV 01/14/17 19:30 02/13/17 19:29 01/14/17 21:13 Tamsulosin HCl (Flomax) 0.4 mg BEDTIME ORAL 01/15/17 21:00 02/14/17 20:59 UNV Assessment/Plan Assessment/Plan Abx: IV Vancomycin 01/14 x1 Cefepime 01/14- Flagyl 01/15- Unasyn x1 01/14 Assessment: SOB- 2ry to RML and RLL PNA, CAP- ?aspiration -CXR: No acute process. -CT abd/p wo: Groundglass opacities and patchy consolidations in the right middle and lower lobe. Findings are concerning for pneumonia. Diverticulosis without evidence of acute diverticulitis. Moderately distended bladder with enlarged, heterogeneous prostate. Correlate for degree of bladder outlet obstruction. There is herniation of portions of the bladder via a right inguinal hernia. Small hiatal hernia. Apparent thickening of the stomach, poorly evaluated without p.o. contrast. True gastric thickening/mass not excludable. Multiple lesions in the kidneys, and which demonstrate increased density and may be hemorrhagic or pertinacious cyst. Contrast-enhanced exam or ultrasound would provide better assessment. Hepatic steatosis. Coronary artery disease. Trace pericardial effusion. Fever/leukocytosis- 2ry to above; improving -u/a neg JULIETA, improving- r/o obstructive component based on CT findings Kidney lesions CAD HTN CKD BPH CHF Anxiety/Depression Plan: -Switch Cefepime to Ceftriaxone and continue flagyl pending sputum cx; will treat for 5-7 days; upon discharge will choose and oral regimen based on susceptibilities -f/u cx -Monitor CBC/BMP, temperatures Thank you for this consultation. Will continue to follow along with you. Discussed with Kristen Valencia M.D. Jan 15, 2017 12:57
--- NOTE | 2017-01-15 14:44 | Pulmonology Progress Note ---
Assessment/Plan Problems: (1) CHF (congestive heart failure) (2) CAD (coronary artery disease) (3) Pneumonia Assessment/Plan improving all noted afebrile now ID saw the pt med/surg check echo; check electrolytes. Subjective ROS Limited/Unobtainable: No Constitutional: Reports: no symptoms HEENT: Repors: no symptoms Respiratory: Reports: no symptoms Allergies: Coded Allergies: No Known Allergies (Unverified , 01/14/17) Objective Last 24 Hour Vital Signs Date Time Temp Pulse Resp B/P (MAP) Pulse Ox O2 Delivery O2 Flow Rate FiO2 01/15/17 12:00 97.8 90 18 133/70 Room Air 01/15/17 09:00 60 142/70 01/15/17 08:00 97.6 60 142/70 01/15/17 07:45 66 16 Room Air 01/15/17 04:00 98.6 63 20 130/76 94 Room Air 01/15/17 03:38 56 01/15/17 00:00 97.0 61 20 117/59 95 01/14/17 23:36 58 01/14/17 20:22 76 18 Room Air 01/14/17 20:00 98.2 64 16 106/56 93 01/14/17 19:39 63 01/14/17 19:29 101.4 74 20 143/59 94 Room Air 01/14/17 14:55 101.4 74 20 143/59 94 Room Air General Appearance: WD/WN HEENT: normocephalic, atraumatic, PERRL Respiratory/Chest: chest wall non-tender, lungs clear Cardiovascular: normal peripheral pulses, normal rate Abdomen: normal bowel sounds, soft, non tender Genitourinary: normal external genitalia Extremities: no clubbing Neurologic/Psychiatric: digital media strategist II-XII grossly normal, no motor/sensory deficits Lymphatic: no neck adenopathy Musculoskeletal: normal muscle bulk Laboratory Tests 01/14/17 19:00: Uric Acid 5.7, Total Creatine Kinase 66 01/14/17 21:30: Urine Color Pale yellow, Urine Appearance Clear, Urine pH 5, Urine Specific [place] 1.010, Urine Protein Negative, Urine Glucose (UA) Negative, Urine Ketones Negative, Urine Occult Blood Negative, Urine Nitrite Negative, Urine Bilirubin Negative, Urine Urobilinogen Normal, Urine Leukocyte Esterase Negative , Urine RBC 0-2H, Urine WBC 0-2, Urine Squamous Epithelial Cells None, Urine Bacteria None, Urine Eosinophils None seen, Urine Random Sodium 117H, Urine Potassium Timed 31 01/15/17 06:05: White Blood Count 16.0H, Red Blood Count 3.94L, Hemoglobin 12.2L, Hematocrit 36.2L, Mean Corpuscular Volume 92, Mean Corpuscular Hemoglobin 31.0, Mean Corpuscular Hemoglobin Concent 33.8, Red Cell Distribution Width 12.4, Platelet Count 249, Mean Platelet Volume 5.6L, Neutrophils (%) (Auto) 79.5H, Lymphocytes (%) (Auto) 12.0L, Monocytes (%) (Auto) 6.2, Eosinophils (%) (Auto) 1.8, Basophils (%) (Auto) 0.5, Sodium Level 139, Potassium Level 3.9, Chloride Level 105, Carbon Dioxide Level 27, Anion Gap 7, Blood Urea Nitrogen 27H, Creatinine 1.5H, Estimat Glomerular Filtration Rate , Glucose Level 93, Calcium Level 9.1, Phosphorus Level 3.3, Albumin 3.1L Current Medications Medications (Trade) Dose Ordered Sig/Huma Route PRN Reason Start Time Stop Time Status Last Admin Dose Admin Acetaminophen (Tylenol) 650 mg Q4H PRN ORAL FEVER 01/14/17 18:30 02/13/17 18:29 Albuterol/ Ipratropium (Albuterol/ Ipratropium) 3 ml Q4H PRN HHN Shortness of Breath 01/14/17 18:30 01/19/17 18:29 Amlodipine Besylate (Norvasc) 2.5 mg DAILY ORAL 01/15/17 09:00 02/14/17 08:59 01/15/17 09:00 Aspirin (ASA) 81 mg DAILY ORAL 01/15/17 10:45 02/14/17 10:44 01/15/17 11:30 Bupropion HCl (Wellbutrin SR) 100 mg TWICE A DAY ORAL 01/15/17 09:00 02/14/17 08:59 01/15/17 09:00 Cefepime HCl 1 gm/ Dextrose 55 ml @ 110 mls/hr Q24H IVPB 01/15/17 20:30 01/22/17 20:29 Dextrose (Dextrose 50%) STAT PRN IV Hypoglycemia 01/14/17 18:30 02/13/17 18:29 Escitalopram Oxalate (Lexapro) 10 mg DAILY ORAL 01/15/17 09:00 02/14/17 08:59 01/15/17 09:00 Heparin Sodium (Porcine) (Heparin 5000 units/ml) 5,000 units EVERY 12 HOURS SUBQ 01/14/17 21:00 02/13/17 20:59 01/15/17 09:00 Lorazepam (Ativan 2mg/ml 1ml) 2 mg Q2H PRN IV For Anxiety 01/14/17 18:30 01/21/17 18:29 Lorazepam (Ativan) 0.5 mg THREE TIMES A DAY ORAL 01/15/17 09:00 01/22/17 08:59 01/15/17 13:09 Metronidazole 100 ml @ 100 mls/hr Q8HR IVPB 01/15/17 14:00 01/22/17 13:59 01/15/17 14:34 Morphine Sulfate (Morphine Sulfate) 4 mg Q4H PRN IVP Severe Pain (Pain Scale 7-10) 01/14/17 18:30 01/21/17 18:29 Ondansetron HCl (Zofran) 4 mg Q6H PRN IVP Nausea & Vomiting 01/14/17 18:30 02/13/17 18:29 Polyethylene Glycol (Miralax) 17 gm DAILYPRN PRN ORAL Constipation 01/14/17 18:30 02/13/17 18:29 Sodium Chloride 1,000 ml @ 50 mls/hr Q20H IV 01/14/17 19:30 02/13/17 19:29 01/14/17 21:13 Tamsulosin HCl (Flomax) 0.4 mg BEDTIME ORAL 01/15/17 21:00 02/14/17 20:59 ARYAN GRIFFIN Jan 15, 2017 14:44
--- NOTE | 2017-01-15 15:15 | GI Initial Consult Note ---
Zahra Rush N.P. 01/15/17 1515: History of Present Illness General Date patient seen: Jan 15, 2017 Time patient seen: 15:00 Reason for Hospitalization: Chest Pain Referring physician: FALGUNI LABOY Reason for Consultation: ABDOMINAL PAIN Present Illness HPI Patient is 86-year-old male who presented after increased difficulty breathing and chest pain. The patient reportedly had been given aspirin, nitroglycerin in the field he denied any fever. He reports having increased swelling. He states he previously had been taking Bumex as well as Lasix. Patient not been having any cough. He reported having some increased the with difficulty breathing. He had been taking long-acting nitrates for chest pain in the past. Patient had been having increased abdominal pain. GI consulted for abdominal pain. HPI as noted above. Pt seen on floor, awake A&Ox4 NAD with no active s/sx of N/V/D. Denied any abdominal pain at this moment. CT AP reviewed most notable for possible gastric thickening/mass, see full summary below. Per the patient's son, the patient recently had an upper endoscopy performed at [facility] in [place] approximately 6 months ago where he was diagnosed with benign gastric polyps. States his last colonoscopy was approximately 2-3 years ago as well. He presents today with leukocytosis and gastric wall thickening. CT AP Impression: * Groundglass opacities and patchy consolidations in the right middle and lower lobe. Findings are concerning for pneumonia. * Diverticulosis without evidence of acute diverticulitis. * Moderately distended bladder with enlarged, heterogeneous prostate. Correlate for degree of bladder outlet obstruction. There is herniation of portions of the bladder via a right inguinal hernia. * Small hiatal hernia. Apparent thickening of the stomach, poorly evaluated without p.o. contrast. True gastric thickening/mass not excludable. Correlate clinically. Consider endoscopy. * Multiple lesions in the kidneys, and which demonstrate increased density and may be hemorrhagic or pertinacious cyst. Contrast-enhanced exam or ultrasound would provide better assessment. * Hepatic steatosis. * Coronary artery disease. * Trace pericardial effusion. Home Meds Reported Medications Lansoprazole* (PREVACID*) 15 Mg Capsule.dr, 15 MG ORAL DAILY, CAP 01/15/17 Lorazepam* (ATIVAN*) 0.5 Mg Tablet, 0.5 MG ORAL THREE TIMES A DAY, TAB 12/7/17 Bupropion Sr* (WELLBUTRIN SR*) 100 Mg Tablet.er, 100 MG ORAL TWICE A DAY for 30 Days, TAB 0 Refills 01/14/17 Escitalopram Oxalate* (LEXAPRO*) 10 Mg Tablet, 10 MG ORAL DAILY, TAB 01/14/17 Amlodipine Besylate* (AMLODIPINE BESYLATE*) 2.5 Mg Tablet, 2.5 MG ORAL DAILY, TAB 01/14/17 Med list reviewed/reconciled: Yes Allergies: Coded Allergies: No Known Allergies (Unverified , 01/14/17) Patient History Limited by: medical condition History Provided By: Patient, Family Member, Medical Record PMH Narrative Past Medical History: see triage record Reviewed Nursing Documentation: PMH: Agreed, PSxH: Agreed Nursing Documentation-PMH Hx Hypertension: Yes History Of Psychiatric Problem: Yes - Depression Review of Systems All Other Systems: negative except mentioned in HPI Physical Exam Vital Signs Date Time Temp Pulse Resp B/P (MAP) Pulse Ox O2 Delivery O2 Flow Rate FiO2 01/14/17 14:10 78 16 144/73 94 01/14/17 14:55 101.4 Room Air Sp02 EP Interpretation: reviewed, normal Labs Laboratory Tests Test 01/14/17 19:00 01/14/17 21:30 01/15/17 06:05 Uric Acid 5.7 MG/DL (2.6-7.2) Total Creatine Kinase 66 U/L (26-308) Urine Color Pale yellow Urine Appearance Clear Urine pH 5 (4.5-8.0) Urine Specific J[place] 1.010 (1.005-1.035) Urine Protein Negative (NEGATIVE) Urine Glucose (UA) Negative (NEGATIVE) Urine Ketones Negative (NEGATIVE) Urine Occult Blood Negative (NEGATIVE) Urine Nitrite Negative (NEGATIVE) Urine Bilirubin Negative (NEGATIVE) Urine Urobilinogen Normal MG/DL (0.0-1.0) Urine Leukocyte Esterase Negative (NEGATIVE) Urine RBC 0-2 /HPF (0 - 0) H Urine WBC 0-2 /HPF (0 - 0) Urine Squamous Epithelial Cells None /LPF (NONE/OCC) Urine Bacteria None /HPF (NONE) Urine Eosinophils None seen Urine Random Sodium 117 MEQ/L (20-110) H Urine Potassium Timed 31 mmol/L (12-62) White Blood Count 16.0 K/UL (4.8-10.8) H Red Blood Count 3.94 M/UL (4.70-6.10) L Hemoglobin 12.2 G/DL (14.2-18.0) L Hematocrit 36.2 % (42.0-52.0) L Mean Corpuscular Volume 92 FL (80-99) Mean Corpuscular Hemoglobin 31.0 PG (27.0-31.0) Mean Corpuscular Hemoglobin Concent 33.8 G/DL (32.0-36.0) Red Cell Distribution Width 12.4 % (11.6-14.8) Platelet Count 249 K/UL (150-450) Mean Platelet Volume 5.6 FL (6.5-10.1) L Neutrophils (%) (Auto) 79.5 % (45.0-75.0) H Lymphocytes (%) (Auto) 12.0 % (20.0-45.0) L Monocytes (%) (Auto) 6.2 % (1.0-10.0) Eosinophils (%) (Auto) 1.8 % (0.0-3.0) Basophils (%) (Auto) 0.5 % (0.0-2.0) Sodium Level 139 MMOL/L (136-145) Potassium Level 3.9 MMOL/L (3.5-5.1) Chloride Level 105 MMOL/L (98-107) Carbon Dioxide Level 27 MMOL/L (21-32) Anion Gap 7 mmol/L (5-15) Blood Urea Nitrogen 27 mg/dL (7-18) H Creatinine 1.5 MG/DL (0.55-1.30) H Estimat Glomerular Filtration Rate mL/min (>60) Glucose Level 93 MG/DL (74-106) Calcium Level 9.1 MG/DL (8.5-10.1) Phosphorus Level 3.3 MG/DL (2.5-4.9) Albumin 3.1 G/DL (3.4-5.0) L General Appearance: well appearing, no apparent distress, alert Head: normocephalic EENT: PERRL/EOMI, normal ENT inspection Neck: supple Respiratory: normal breath sounds, no respiratory distress Cardiovascular: normal rate Gastrointestinal: normal inspection, non tender, soft, normal bowel sounds, non -distended Rectal: deferred Genitourinary: deferred Musculoskeletal: normal inspection, back normal Neurologic: normal inspection, alert, responsive Psychiatric: normal inspection, judgement/insight normal, memory normal Skin: normal inspection, normal color, no rash, warm/dry, palpation normal, well hydrated Lymphatic: normal inspection, no adenopathy Current Medications Current Medications Medications (Trade) Dose Ordered Sig/Huma Route PRN Reason Start Time Stop Time Status Last Admin Dose Admin Acetaminophen (Tylenol) 650 mg Q4H PRN ORAL FEVER 01/14/17 18:30 02/13/17 18:29 Albuterol/ Ipratropium (Albuterol/ Ipratropium) 3 ml Q4H PRN HHN Shortness of Breath 01/14/17 18:30 01/19/17 18:29 Amlodipine Besylate (Norvasc) 2.5 mg DAILY ORAL 01/15/17 09:00 02/14/17 08:59 01/15/17 09:00 Aspirin (ASA) 81 mg DAILY ORAL 01/15/17 10:45 02/14/17 10:44 01/15/17 11:30 Bupropion HCl (Wellbutrin SR) 100 mg TWICE A DAY ORAL 01/15/17 09:00 02/14/17 08:59 01/15/17 09:00 Cefepime HCl 1 gm/ Dextrose 55 ml @ 110 mls/hr Q24H IVPB 01/15/17 20:30 01/22/17 20:29 Dextrose (Dextrose 50%) STAT PRN IV Hypoglycemia 01/14/17 18:30 02/13/17 18:29 Escitalopram Oxalate (Lexapro) 10 mg DAILY ORAL 01/15/17 09:00 02/14/17 08:59 01/15/17 09:00 Heparin Sodium (Porcine) (Heparin 5000 units/ml) 5,000 units EVERY 12 HOURS SUBQ 01/14/17 21:00 02/13/17 20:59 01/15/17 09:00 Lorazepam (Ativan 2mg/ml 1ml) 2 mg Q2H PRN IV For Anxiety 01/14/17 18:30 01/21/17 18:29 Lorazepam (Ativan) 0.5 mg THREE TIMES A DAY ORAL 01/15/17 09:00 01/22/17 08:59 01/15/17 13:09 Metronidazole 100 ml @ 100 mls/hr Q8HR IVPB 01/15/17 14:00 01/22/17 13:59 01/15/17 14:34 Morphine Sulfate (Morphine Sulfate) 4 mg Q4H PRN IVP Severe Pain (Pain Scale 7-10) 01/14/17 18:30 01/21/17 18:29 Ondansetron HCl (Zofran) 4 mg Q6H PRN IVP Nausea & Vomiting 01/14/17 18:30 02/13/17 18:29 Polyethylene Glycol (Miralax) 17 gm DAILYPRN PRN ORAL Constipation 01/14/17 18:30 02/13/17 18:29 Sodium Chloride 1,000 ml @ 50 mls/hr Q20H IV 01/14/17 19:30 02/13/17 19:29 01/15/17 14:43 Tamsulosin HCl (Flomax) 0.4 mg BEDTIME ORAL 01/15/17 21:00 02/14/17 20:59 GI: Plan Problems: (1) Gastric wall thickening (2) Anemia Plan nursing order to obtain endoscopy records from [facility] will consider EGD wednesday pending records anemia work up OB stool r/o GI bleed monitor H&H, prn transfusions bowel regime >> colace + miralax pain mgmt ppi fu labs Discussed with Dr. Mejia. Thank you for this patient referral, we will follow. JUAN CARLOS MEJIA 01/17/17 1330: History of Present Illness General Reason for Hospitalization: Chest Pain Present Illness Home Meds Reported Medications Lansoprazole* (PREVACID*) 15 Mg Capsule.dr, 15 MG ORAL DAILY, CAP 01/15/17 Lorazepam* (ATIVAN*) 0.5 Mg Tablet, 0.5 MG ORAL THREE TIMES A DAY, TAB 01/14/17 Bupropion Sr* (WELLBUTRIN SR*) 100 Mg Tablet.er, 100 MG ORAL TWICE A DAY for 30 Days, TAB 0 Refills 01/14/17 Escitalopram Oxalate* (LEXAPRO*) 10 Mg Tablet, 10 MG ORAL DAILY, TAB 01/14/17 Amlodipine Besylate* (AMLODIPINE BESYLATE*) 2.5 Mg Tablet, 2.5 MG ORAL DAILY, TAB 01/14/17 Allergies: Coded Allergies: No Known Allergies (Unverified , 12/7/17) GI: Plan Plan The patient was seen and examined at bedside and all new and available data was reviewed in the patients chart. I agree with the above findings, impression and plan. (Patient seen earlier today. Signature stamp does not reflect patient encounter time.). - MD [facility] Jatinder N.PEloisa Jan 15, 2017 15:15 JUAN CARLOS MEJIA Jan 17, 2017 13:30
[2017-01-15 16:00] VITALS: BP 130/70
--- NOTE | 2017-01-15 16:45 | History and Physical Report ---
DATE OF ADMISSION: 01/14/2017 CHIEF COMPLAINT: Chest discomfort, shortness of breath. HISTORY OF PRESENT ILLNESS: This is an 86-year-old [place] gentleman with past medical history significant for stomach as well as duodenum ulcer, history of hiatal hernia, depression, anxiety, and prior history of colitis over 20 years ago, history of left lung collapse status post surgery, appendectomy, BPH, status post TURP, hypertension, who has presented to the hospital complaining about difficulties breathing and shortness of breath as well as chest pain. The patient has recently traveled from [place] to [place] yesterday and he stated that prior to travel from [place], he was in normal state of health, however, while he was in the plane, he started having shortness of breath progressively worsening and as he was departing from the airport, his symptoms got worsening. He was not able to ambulate with difficulty breathing as well as chest pain. The patient recently traveled from [place] to [place] and stated that prior to travel, he was in normal state and then while he was in the plane, he developed shortness of breath and chest discomfort. It got progressively worsening as he was departing from the airport and subsequently decided to come to the hospital. He states that he has been having shortness of breath upon ambulation as well as exertional angina with tingling and numbness of the left arm. Shortly after initial evaluation in emergency, the patient was admitted to the hospital with chest pain, possible acute coronary syndrome as well as shortness of breath possibly due to the aspiration pneumonia. PAST MEDICAL HISTORY/PAST SURGICAL HISTORY: As above. History of stomach and the duodenum ulcer, hiatal hernia, depression, anxiety, colitis, left lung collapse, status post surgery, appendectomy, BPH, status post TURP, hypertension. Denies any history of diabetes. Positive history of angina. Denies any history of lung cancer or any type of cancer. MEDICATIONS: At home significant for amlodipine, Lexapro, lorazepam. He used to be on the Lasix and Bumex, however, was discontinued. ALLERGIES: No known drug allergies. SOCIAL HISTORY: Denies any smoking, alcohol, or drugs. He lives in the [place], visiting family member in [place]. FAMILY HISTORY: He has two sisters, one is older and one is younger, suffer from osteoarthritis, otherwise no history of heart disease in the family or sudden . REVIEW OF SYSTEMS: Complained about shortness of breath, mostly on exertion. Complained about angina, peripheral vascular disease. Denies any hemoptysis or hematochezia. Denies any bright red blood per rectum. Denies any suicidal or homicidal ideation. Denies any loss of consciousness. PHYSICAL EXAMINATION: VITAL SIGNS: On admission, temperature is 97.0 and repeat one was 101.4, pulse of 74, respirations 20, and blood pressure 143/59 and repeat one was 106/56. GENERAL: The patient is awake, responsive, in no acute distress. HEAD AND NECK: Pupils reactive to light. Extraocular movements intact. NECK: Supple. No JVD. LUNGS: Good air entry. No wheezing or rales. HEART: S1, S2. Distant heart sounds. No murmur or gallops. ABDOMEN: Soft, nondistended, and nontender. Mildly obese. EXTREMITIES: No cyanosis, clubbing, or edema. NEUROLOGIC: Cranial nerves II through XII are grossly intact. Motor is 5/5 and moving all extremities. Gait is intact. LABORATORY AND DIAGNOSTIC DATA: On admission, chest x-ray showed no acute process, some atelectasis at left lung base, heart is mildly enlarged, aorta tortuous and calcified. CT scan of the chest and abdomen showed ground-glass opacity with patchy consolidation at the right middle and lower lobes, findings concerning about pneumonia, diverticulosis without evidence of acute diverticulitis, moderately distended bladder with enlarged heterogeneous prostate to degree of bladder outlet obstruction, there is a hernia of the portion of the bladder via the right inguinal hernia, small hiatal hernia, findings of the stomach poorly evaluated without oral contrast through gastric thickening, mass not excludable. The patient has multiple lesions in the kidneys which demonstrate increased density and may be hemorrhagic or cysts, hepatic , coronary artery disease, trace pericardial effusion. The patient's laboratory, WBC of 19, hemoglobin of 13, hematocrit of 40, platelet 275,000. Sodium 140, potassium 4.0, chloride 106, bicarbonate 23, BUN 27, creatinine 1.7, and glucose 92. AST of 25, ALT of 21. First troponin 0.00. ProBNP of 58. Albumin 3.5. Urinalysis unremarkable. EKG was normal sinus rhythm, ventricular rate of 76, no ST elevation was noted, right bundle-branch block, PVC was noted, rightward axis EKG. ASSESSMENT: 1. Chest pain, possible acute coronary syndrome. 2. Leukocytosis, possible due to the aspiration pneumonia. 3. Hypertension. 4. Peptic ulcer disease. 5. Chronic kidney disease. 6. Depression and anxiety. PLAN: Admit the patient to telemetry. We will follow up with the laboratory. Discussed with the patient as well as a family member at the bedside extensively. We will start the patient on broad-spectrum antibiotics with Levaquin and Flagyl and follow up with Dr. March, pulmonary/critical care and Dr. Holder from gastroenterology as well as renal ultrasound and we will do a swallow study to be obtained and we will follow up with 2D echo. Code status full code. DVT prophylaxis, heparin subcutaneous. Kennedy Ng M.D. DR: Dorys JOB#: [id number] CC:
[2017-01-15] MEDS ORDERED: PREVACID15 MG ORAL (16:55)
--- NOTE | 2017-01-15 18:44 | Cardiology Progress Note ---
Assessment/Plan Assessment/Plan The patient is seen and examined, full consult note will be dictated shortly. Objective Last 24 Hour Vital Signs Date Time Temp Pulse Resp B/P (MAP) Pulse Ox O2 Delivery O2 Flow Rate FiO2 01/15/17 16:00 97.5 80 12 130/70 Room Air 01/15/17 12:00 97.8 90 18 133/70 Room Air 01/15/17 12:00 63 01/15/17 09:00 60 142/70 01/15/17 08:00 97.6 60 142/70 01/15/17 08:00 59 01/15/17 07:45 66 16 Room Air 01/15/17 04:00 98.6 63 20 130/76 94 Room Air 01/15/17 03:38 56 01/15/17 00:00 97.0 61 20 117/59 95 01/14/17 23:36 58 01/14/17 20:22 76 18 Room Air 01/14/17 20:00 98.2 64 16 106/56 93 01/14/17 19:39 63 01/14/17 19:29 101.4 74 20 143/59 94 Room Air Laboratory Tests Test 01/14/17 19:00 01/14/17 21:30 01/15/17 06:05 01/15/17 15:57 Uric Acid 5.7 MG/DL (2.6-7.2) Total Creatine Kinase 66 U/L (26-308) Urine Color Pale yellow Urine Appearance Clear Urine pH 5 (4.5-8.0) Urine Specific [place] 1.010 (1.005-1.035) Urine Protein Negative (NEGATIVE) Urine Glucose (UA) Negative (NEGATIVE) Urine Ketones Negative (NEGATIVE) Urine Occult Blood Negative (NEGATIVE) Urine Nitrite Negative (NEGATIVE) Urine Bilirubin Negative (NEGATIVE) Urine Urobilinogen Normal MG/DL (0.0-1.0) Urine Leukocyte Esterase Negative (NEGATIVE) Urine RBC 0-2 /HPF (0 - 0) H Urine WBC 0-2 /HPF (0 - 0) Urine Squamous Epithelial Cells None /LPF (NONE/OCC) Urine Bacteria None /HPF (NONE) Urine Eosinophils None seen Urine Random Sodium 117 MEQ/L (20-110) H Urine Potassium Timed 31 mmol/L (12-62) White Blood Count 16.0 K/UL (4.8-10.8) H Red Blood Count 3.94 M/UL (4.70-6.10) L Hemoglobin 12.2 G/DL (14.2-18.0) L Hematocrit 36.2 % (42.0-52.0) L Mean Corpuscular Volume 92 FL (80-99) Mean Corpuscular Hemoglobin 31.0 PG (27.0-31.0) Mean Corpuscular Hemoglobin Concent 33.8 G/DL (32.0-36.0) Red Cell Distribution Width 12.4 % (11.6-14.8) Platelet Count 249 K/UL (150-450) Mean Platelet Volume 5.6 FL (6.5-10.1) L Neutrophils (%) (Auto) 79.5 % (45.0-75.0) H Lymphocytes (%) (Auto) 12.0 % (20.0-45.0) L Monocytes (%) (Auto) 6.2 % (1.0-10.0) Eosinophils (%) (Auto) 1.8 % (0.0-3.0) Basophils (%) (Auto) 0.5 % (0.0-2.0) Sodium Level 139 MMOL/L (136-145) Potassium Level 3.9 MMOL/L (3.5-5.1) Chloride Level 105 MMOL/L (98-107) Carbon Dioxide Level 27 MMOL/L (21-32) Anion Gap 7 mmol/L (5-15) Blood Urea Nitrogen 27 mg/dL (7-18) H Creatinine 1.5 MG/DL (0.55-1.30) H Estimat Glomerular Filtration Rate mL/min (>60) Glucose Level 93 MG/DL (74-106) Calcium Level 9.1 MG/DL (8.5-10.1) Phosphorus Level 3.3 MG/DL (2.5-4.9) Albumin 3.1 G/DL (3.4-5.0) L Urine Random Creatinine Pending Urine Random Microalbumin Pending Urine Random Total Protein 15 MG/DL (< 11.9) H Urine Creatinine 56.3 MG/DL (30.0-125.0) Urine Microalbumin/Creatinine Ratio Pending RICKI FALCON Jan 15, 2017 18:44
[2017-01-15 20:00] VITALS: BP 120/66
[2017-01-15] MEDS ORDERED: Cefepime 1gm in D5W 55ml IVPB SCH (20:30)
[2017-01-15] MEDS ORDERED: Tamsulosin 0.4mg cap ORAL SCH (21:00)
[2017-01-15] MEDS ORDERED: cefTRIAXone 1 GM in D5W 55 ML IVPB SCH (21:00)
--- NOTE | 2017-01-15 22:45 | Consultation ---
DATE OF CONSULTATION: 01/15/2017 NEPHROLOGY CONSULTATION CONSULTING PHYSICIAN: Lucy Gordon M.D. REFERRING PHYSICIAN: Kennedy Ng M.D. REASON FOR CONSULTATION: Acute renal failure. HISTORY OF PRESENT ILLNESS: The patient is a very pleasant 86-year-old male with past medical history significant for history of hypertension. He has been noticing for the last month that he has been getting progressively short of breath and chest pain while he is doing any physical activity. The chest pain he describes it as pressure-like pain, 8/10, radiating to the left arm and relieved with nitroglycerin. He also denies having any orthopnea, PND, or leg swelling. The patient was consequently presented to the emergency room. In the ER, the patient was admitted with the diagnosis of acute coronary syndrome and found to have creatinine of 1.7. I was called for management of renal disease and electrolyte imbalance. PAST MEDICAL HISTORY: 1. Hypertension. 2. Depression. 3. Possible BPH. PAST SURGICAL HISTORY: None. MEDICATIONS: Reviewed. ALLERGIES: No known drug allergies. SOCIAL HISTORY: Denies any history of tobacco, alcohol, or drug use. Currently living with son at home and able to provide self-care for himself. FAMILY HISTORY: Negative for any history of chronic kidney disease. REVIEW OF SYSTEMS: GENERAL: He complained of generalized weakness. Denied any fever, chills, or night sweats. HEAD AND NECK: Denies any dysphagia, odynophagia, blurry vision, headache, or neck stiffness. PULMONARY: Complained of shortness of breath. Denies any cough or hemoptysis. CARDIOVASCULAR: Complained of chest pain as mentioned above. GASTROINTESTINAL: Denies any nausea, vomiting, diarrhea, hematemesis, or hematochezia. GENITOURINARY: Denies any dysuria, frequency, or hematuria. MUSCULOSKELETAL: He complained of generalized weakness. Denies any localized weakness or numbness. PHYSICAL EXAMINATION: VITAL SIGNS: The patient has temperature of 98, blood pressure 144/73, pulse rate of 94, and respiratory rate of 18. HEAD AND NECK: No JVP. No LAD. No thyromegaly. Extraocular movement intact. Pupils are reactive to light and accommodation. LUNGS: Clear to auscultation. CARDIAC: Regular rate and rhythm. S1, S2 normal. No rub. ABDOMEN: Soft, nontender, and nondistended. EXTREMITIES: No edema. No clubbing. No cyanosis. LABORATORY AND DIAGNOSTIC DATA: Laboratory value, chemistry revealed sodium 140, potassium 4.6, chloride 106, bicarbonate 23, BUN of 27, creatinine 1.7, glucose of 92, and calcium of 9.3. AST of 25, ALT of 21, and alkaline phosphatase of 102. The patient has albumin of 3.1. CBC revealed WBC count of 19,000, hemoglobin of 13.5, hematocrit of 40.6, and platelet count of 279,000. UA revealed specific gravity of 1.010, pH of 5, WBC 0-2, RBC 0-2. Random urine sodium 117 and potassium of 31. The patient had CT of the abdomen which revealed chronic glass opacity on the right medial and lower lobe consistent with pneumonia, diverticulosis without diverticulitis, moderately distended bladder, and enlarged heterogeneous prostate, cannot rule out bladder outlet obstruction, small hiatal hernia, multiple lesions in the kidney which demonstrate increasing density, may be hemorrhagic versus cyst, hepatic steatosis, CAD, and trace pleural effusion. ASSESSMENT: 1. Acute renal failure, the etiology of acute renal failure including acute tubular necrosis versus prerenal azotemia versus obstructive uropathy. 2. Pneumonia. 3. Hypertension. 4. Hypoalbuminemia. PLAN: Obtain UA. Check the random urine protein/creatinine ratio to calculate the proteinuria. Check the urine sodium and creatinine to calculate fractional excretion of sodium. I would hydrate the patient at this time. I would also obtain an ultrasound of the kidney to evaluate the kidney size and check the scanning of the bladder. If more than 200 mL, I would recommend the patient to have a Wise catheter. I would also start the patient on Flomax. I would monitor renal function and electrolytes closely. Again, I would like to thank Dr. Ng for allowing me to participate in the care of this patient. Lucy Gordon M.D. DR: TEQUILA JOB#: [id number] CC:
[2017-01-16 00:20] VITALS: BP 127/82
[2017-01-16] MEDS ORDERED: Morphine Sulfate 4mg/ml Inj IVP PRN (02:30)
[2017-01-16] MEDS ORDERED: Albuterol/Ipratropium 3ml neb HHN PRN (02:30)
[2017-01-16] MEDS ORDERED: LORazepam Inj 2mg/ml 1ml IV PRN (02:30)
--- NOTE | 2017-01-16 03:30 | Consultation ---
DATE OF CONSULTATION: 01/15/2017 CARDIOLOGY CONSULTATION CONSULTING PHYSICIAN: Gagandeep Alford M.D. REFERRING PHYSICIAN: Kennedy Ng M.D. REASON FOR CONSULTATION: Management of chest pain. HISTORY OF PRESENT ILLNESS: The patient is a very pleasant 86-year-old gentleman, who is visiting granddaughter from [place]. He presents to the emergency department with increased difficulty breathing and chest pain for couple of days. The patient also noticed increased swelling with lower extremity edema. He denies any history of coronary artery disease or congestive heart failure. He states that he has had prior history of shortness of breath and chest pain in the past. He claims that he has angina. He has used long-acting nitrate for the chest pain in the past. When asked whether he had coronary angiography, he denies it. On arrival to the hospital, a 12-lead electrocardiogram did not show any evidence of ST and T-wave abnormalities, although there was presence of right bundle-branch block and sinus rhythm. His initial blood pressure was 144/73 mmHg. Chest x-ray revealed cardiomegaly with some atelectasis in the left lung base. First troponin level was 0. PAST MEDICAL HISTORY: Peptic ulcer, hiatal hernia, depression, anxiety, colitis, left lung collapse, BPH, hypertension, and angina. PAST SURGICAL HISTORY: Status post surgery for lung collapse, appendectomy, TURP. MEDICATIONS: At home includes amlodipine 2.5 mg p.o. daily, Wellbutrin 100 mg p.o. twice daily, Lexapro 10 mg p.o. daily, Prevacid 50 mg p.o. daily, and Ativan 0.5 mg 3 times daily. ALLERGIES: No known drug allergies. SOCIAL HISTORY: Denies any tobacco, alcohol, or illicit drug use. FAMILY HISTORY: No premature coronary artery disease or arrhythmogenic in the first-degree relatives. REVIEW OF SYSTEMS: HEENT: Denies any headache, diplopia. Complains of blurred vision, red eye, as well as a gritty sensation in both eyes. CONSTITUTIONAL: Denies any fever, chills, night sweats, or weight loss. CARDIOVASCULAR: Chest pain as mentioned above and shortness of breath. He is not a very good historian in recovery description of the chest pain. Denies any PND, or orthopnea. Had some lower extremity edema. Denies any palpitation or syncope. PULMONARY: Denies any cough, hemoptysis, wheezing. GI: Denies any nausea, vomiting, diarrhea, constipation, abdominal pain, or GI bleed. : Denies any hematuria, dysuria, incontinence. NEUROLOGY: Denies any motor dysfunction, sensory deficit, or altered speech. PHYSICAL EXAMINATION: VITAL SIGNS: Blood pressure is 144/73, respirations 16, pulse of 78, O2 saturation of 94% on room air. GENERAL: The patient is a very delightful 86-year-old gentleman, in no apparent respiratory distress. HEENT: Atraumatic and normocephalic. Anicteric. Pupils are equal, round, reactive and accommodation. Extraocular muscles intact. NECK: JVP less than 5 cm. No carotid bruit. Carotid upstroke is 2+ bilaterally. CVS: Normal S1, S2. Regular rate and rhythm. A 2/6 mid systolic murmur in the left sternal border. PMI is at fourth intercostal space in the midclavicular line. LUNGS: Clear to auscultation bilaterally. ABDOMEN: Soft, nontender, and nondistended. No hepatosplenomegaly. Positive bowel sounds. EXTREMITIES: No evidence of edema, clubbing, or cyanosis. LABORATORY FINDINGS: Sodium 140, potassium is 4.6, chloride 106, bicarbonate 23, BUN of 27, creatinine 1.7, glucose is 92, and calcium is 9.3. Troponin I was 0. ProBNP was 58. WBC 19.3, hemoglobin 13.5, hematocrit of 40.6, and platelet count is 275,000 with 11% bandemia. ASSESSMENT AND PLAN: The patient is a very pleasant 86-year-old gentleman, who is seen in Cardiology consultation at request of Dr. Ng. 1. Dyspnea, most likely due to underlying pneumonia. I would suggest a CT scan of chest to notify the lung parenchyma. There was some questionable infiltration in the left lung base, which was read next as atelectasis. 2. The patient has clear evidence of fever, leukocytosis and bandemia suggestive of infection. Urine does not show any evidence of urinary tract infection. 3. Normal beta natriuretic peptide essentially rules out congestive heart failure. 4. We will order 2D echocardiography for assessment of the systolic and diastolic function. 5. History of angina, questionable coronary artery disease, first troponin is negative. We will continue with serial troponin I to rule out acute myocardial infarction. 6. History of hypertension, on amlodipine. 7. History of benign prostatic hypertrophy status post transurethral resection of prostate. I would like to thank, Dr. Ng, for the courtesy of this consultation. Gagandeep Alford M.D. DR: ANY JOB#: [id number] CC:
[2017-01-16 04:00] VITALS: BP 136/80
[2017-01-16 07:20] LABS: BASOPHILS % (AUTO) 0.5 % (0.0-2.0); EOSINOPHILS % (AUTO) 2.2 % (0.0-3.0); LYMPHOCYTES % (AUTO) 10.9 % (20.0-45.0); MEAN CORPUSCULAR HGB CONC 33.7 G/DL (32.0-36.0); MEAN CORPUSCULAR VOLUME 92 FL (80-99); MEAN PLATELET VOLUME 5.7 FL (6.5-10.1); MONOCYTES % (AUTO) 6.9 % (1.0-10.0); NEUTROPHILS % (AUTO) 79.5 % (45.0-75.0); PLATELET COUNT 277 K/UL (150-450); RED BLOOD COUNT 4.29 M/UL (4.70-6.10); RED CELL DISTRIBUTION WIDTH 12.3 % (11.6-14.8); WHITE BLOOD COUNT 9.7 K/UL (4.8-10.8)
[2017-01-16 07:30] LABS: PROTHROMBIN TIME 10.2 SEC (9.30-11.50)
[2017-01-16 07:34] LABS: ALANINE AMINOTRANSFERASE 19 U/L (12-78); ALBUMIN/GLOBULIN RATIO 0.8 (1.0-2.7); ANION GAP 7 mmol/L (5-15); ASPARTATE AMINO TRANSFERASE 19 U/L (15-37); CALCIUM 9.2 MG/DL (8.5-10.1); CARBON DIOXIDE 28 MMOL/L (21-32); CHLORIDE 105 MMOL/L (98-107); CHOLESTEROL 204 MG/DL (< 200); CREATININE 1.3 MG/DL (0.55-1.30); MAGNESIUM 1.8 MG/DL (1.8-2.4); PHOSPHORUS 3.1 MG/DL (2.5-4.9); SODIUM 140 MMOL/L (136-145); THYROID STIMULATING HORMONE 1.073 uiU/mL (0.358-3.740)
[2017-01-16 07:36] LABS: IRON 32 ug/dL (50-175); TOTAL IRON BINDING CAPACITY 277 ug/dL (250-450)
[2017-01-16 08:00] VITALS: BP 129/77
[2017-01-16 08:07] LABS: FOLIC ACID 17.6 NG/ML (8.6-58.9)
--- NOTE | 2017-01-16 08:08 | General Progress Note ---
Assessment/Plan Problem List: (1) Hiatal hernia ICD Codes: K44.9 - Diaphragmatic hernia without obstruction or gangrene SNOMED: 96673132 (2) Diverticulosis ICD Codes: K57.90 - Diverticulosis of intestine, part unspecified, without perforation or abscess without bleeding SNOMED: 330648927 (3) Fatty liver ICD Codes: K76.0 - Fatty (change of) liver, not elsewhere classified SNOMED: 371220001 (4) Anemia ICD Codes: D64.9 - Anemia, unspecified SNOMED: 645375820 (5) Gastric wall thickening ICD Codes: K31.89 - Other diseases of stomach and duodenum SNOMED: 06642064 (6) CAD (coronary artery disease) ICD Codes: I25.10 - Atherosclerotic heart disease of [place] coronary artery without angina pectoris SNOMED: 30103643 (7) Pneumonia ICD Codes: J18.9 - Pneumonia, unspecified organism SNOMED: 072867067 Assessment/Plan iv iron ppi fu labs needs EGD when cleared by cardiology Subjective ROS Limited/Unobtainable: Yes Allergies: Coded Allergies: No Known Allergies (Unverified , 01/14/17) Subjective no abd pain Objective Last 24 Hour Vital Signs Date Time Temp Pulse Resp B/P (MAP) Pulse Ox O2 Delivery O2 Flow Rate FiO2 01/16/17 07:52 83 16 Room Air 01/16/17 04:00 97.6 73 18 136/80 95 Room Air 01/16/17 00:20 97.7 67 18 127/82 96 Room Air 01/15/17 20:37 64 16 Room Air 21 01/15/17 20:00 97.7 63 18 120/66 95 Room Air 01/15/17 16:00 97.5 80 12 130/70 Room Air 01/15/17 12:00 97.8 90 18 133/70 Room Air 01/15/17 12:00 63 01/15/17 09:00 60 142/70 Laboratory Tests 01/15/17 15:57: Urine Random Creatinine [Pending], Urine Random Microalbumin [Pending], Urine Random Total Protein 15H, Urine Creatinine 56.3, Urine Microalbumin/Creatinine Ratio [Pending] 01/16/17 05:57: White Blood Count 9.7, Red Blood Count 4.29L, Hemoglobin 13.3L, Hematocrit 39.4L , Mean Corpuscular Volume 92, Mean Corpuscular Hemoglobin 31.0, Mean Corpuscular Hemoglobin Concent 33.7, Red Cell Distribution Width 12.3, Platelet Count 277, Mean Platelet Volume 5.7L, Neutrophils (%) (Auto) 79.5H, Lymphocytes (%) (Auto) 10.9L, Monocytes (%) (Auto) 6.9, Eosinophils (%) (Auto) 2.2, Basophils (%) (Auto) 0.5, Reticulocyte Count [Pending], Prothrombin Time 10.2, Prothromb Time International Ratio 1.0, Activated Partial Thromboplast Time 36H , Sodium Level 140, Potassium Level 4.0, Chloride Level 105, Carbon Dioxide Level 28, Anion Gap 7, Blood Urea Nitrogen 20H, Creatinine 1.3, Estimat Glomerular Filtration Rate , Glucose Level 108H, Calcium Level 9.2, Phosphorus Level 3.1, Magnesium Level 1.8, Iron Level 32L, Total Iron Binding Capacity 277 , Percent Iron Saturation 12L, Unsaturated Iron Binding 245, Total Bilirubin 1.0 , Aspartate Amino Transf (AST/SGOT) 19, Alanine Aminotransferase (ALT/SGPT) 19, Alkaline Phosphatase 86, Total Protein 7.0, Albumin 3.1L, Globulin 3.9, Albumin/ Globulin Ratio 0.8L, Cholesterol Level 204H, Vitamin B12 Level [Pending], Folate [Pending], Thyroid Stimulating Hormone (TSH) 1.073, Free Thyroxine 1.20 Height (Feet): 5 Height (Inches): 4.00 Weight (Pounds): 150 General Appearance: alert EENT: normal ENT inspection Neck: supple Cardiovascular: normal rate Respiratory/Chest: lungs clear Abdomen: normal bowel sounds, non tender, soft Extremities: non-tender JUAN CARLOS MEJIA Jan 16, 2017 08:08
[2017-01-16] MEDS: Aspirin Baby 81mg ORAL SCH (08:56)
[2017-01-16] MEDS: BuPROPion SR 100mg tab ORAL SCH ×2 (08:56→17:10)
[2017-01-16] MEDS: LORazepam 0.5mg tab ORAL SCH ×3 (08:57→17:10)
[2017-01-16] MEDS ORDERED: Lansoprazole 15mg cap ORAL SCH (09:00)
[2017-01-16] MEDS: Heparin 5000 units/ml inj SUBQ SCH ×2 (09:01→21:36)
--- NOTE | 2017-01-16 09:24 | Infectious Diseases Prog Note ---
Assessment/Plan Assessment/Plan Abx: IV Vancomycin 01/14 x1 Cefepime 01/14-01/15 Ceftriaxone 01/15- Flagyl 01/15- Unasyn x1 01/14 Assessment: SOB- 2ry to RML and RLL PNA, CAP- ?aspiration -CXR: No acute process. -CT abd/p wo: Groundglass opacities and patchy consolidations in the right middle and lower lobe. Findings are concerning for pneumonia. Diverticulosis without evidence of acute diverticulitis. Moderately distended bladder with enlarged, heterogeneous prostate. Correlate for degree of bladder outlet obstruction. There is herniation of portions of the bladder via a right inguinal hernia. Small hiatal hernia. Apparent thickening of the stomach, poorly evaluated without p.o. contrast. True gastric thickening/mass not excludable. Multiple lesions in the kidneys, and which demonstrate increased density and may be hemorrhagic or pertinacious cyst. Contrast-enhanced exam or ultrasound would provide better assessment. Hepatic steatosis. Coronary artery disease. Trace pericardial effusion. Fever/leukocytosis with bandemia- 2ry to above; improving; leukocytosis resolved -u/a neg JULIETA, improving- r/o obstructive component based on CT findings Kidney lesions Gastric thickening- ?mass/malignancy CAD HTN CKD BPH CHF Anxiety/Depression Plan: -Continue Ceftriaxone #2 (abx d #3/5-7) and flagyl #2/5-7 pending sputum cx; upon discharge will choose and oral regimen based on susceptibilities; if sputum cx results not available at the time fo discharge, can do PO Augmentin -01/15 SP CEfepime #2 -01/14 SP Vanco, Unasyn x1 -f/u cx -plan for possible EGD -Monitor CBC/BMP, temperatures -aspiration precautions Thank you for this consultation. Will continue to follow along with you. Discussed with RN. Subjective Allergies: Coded Allergies: No Known Allergies (Unverified , 01/14/17) Subjective afebrilein 36hrs leukocytosis resolved Objective Vital Signs Last 24 Hour Vital Signs Date Time Temp Pulse Resp B/P (MAP) Pulse Ox O2 Delivery O2 Flow Rate FiO2 01/16/17 08:56 77 129/77 01/16/17 08:00 98.2 77 18 129/77 92 Room Air 01/16/17 07:52 83 16 Room Air 21 01/16/17 04:00 97.6 73 18 136/80 95 Room Air 01/16/17 00:20 97.7 67 18 127/82 96 Room Air 01/15/17 20:37 64 16 Room Air 21 01/15/17 20:00 97.7 63 18 120/66 95 Room Air 01/15/17 16:00 97.5 80 12 130/70 Room Air 01/15/17 12:00 97.8 90 18 133/70 Room Air 01/15/17 12:00 63 Height (Feet): 5 Height (Inches): 4.00 Weight (Pounds): 150 Objective General: No acute distress, awake and alert HEENT: NCAT, sclera anicteric, PERRL, EOMI. Neck: Supple, no significant jugular venous distention, Lungs: Good inspiratory effort, clear to auscultation bilaterally, no Wheeze or Rales. Heart: Regular rate and rhythm, normal S1/S2, no murmurs Abdomen: soft, nontender, nondistended. Normoactive bowel sounds. Obesity. / Rectal: Refused and deferred. Extremities: No Cyanosis , clubbing or edema. Neuro: A&O x 3, Able to move all extremities Skin: warm, no rashes Psych: Normal mood and affect Laboratory Tests Test 01/15/17 15:57 01/16/17 05:57 01/16/17 06:46 Urine Random Creatinine Pending Urine Random Microalbumin Pending Urine Random Total Protein 15 MG/DL (< 11.9) H Urine Creatinine 56.3 MG/DL (30.0-125.0) Urine Microalbumin/Creatinine Ratio Pending White Blood Count 9.7 K/UL (4.8-10.8) Red Blood Count 4.29 M/UL (4.70-6.10) L Hemoglobin 13.3 G/DL (14.2-18.0) L Hematocrit 39.4 % (42.0-52.0) L Mean Corpuscular Volume 92 FL (80-99) Mean Corpuscular Hemoglobin 31.0 PG (27.0-31.0) Mean Corpuscular Hemoglobin Concent 33.7 G/DL (32.0-36.0) Red Cell Distribution Width 12.3 % (11.6-14.8) Platelet Count 277 K/UL (150-450) Mean Platelet Volume 5.7 FL (6.5-10.1) L Neutrophils (%) (Auto) 79.5 % (45.0-75.0) H Lymphocytes (%) (Auto) 10.9 % (20.0-45.0) L Monocytes (%) (Auto) 6.9 % (1.0-10.0) Eosinophils (%) (Auto) 2.2 % (0.0-3.0) Basophils (%) (Auto) 0.5 % (0.0-2.0) Reticulocyte Count Pending Prothrombin Time 10.2 SEC (9.30-11.50) Prothromb Time International Ratio 1.0 (0.9-1.1) Activated Partial Thromboplast Time 36 SEC (23-33) H Sodium Level 140 MMOL/L (136-145) Potassium Level 4.0 MMOL/L (3.5-5.1) Chloride Level 105 MMOL/L (98-107) Carbon Dioxide Level 28 MMOL/L (21-32) Anion Gap 7 mmol/L (5-15) Blood Urea Nitrogen 20 mg/dL (7-18) H Creatinine 1.3 MG/DL (0.55-1.30) Estimat Glomerular Filtration Rate mL/min (>60) Glucose Level 108 MG/DL (74-106) H Calcium Level 9.2 MG/DL (8.5-10.1) Phosphorus Level 3.1 MG/DL (2.5-4.9) Magnesium Level 1.8 MG/DL (1.8-2.4) Iron Level 32 ug/dL (50-175) L Total Iron Binding Capacity 277 ug/dL (250-450) Percent Iron Saturation 12 % (15-50) L Unsaturated Iron Binding 245 ug/dL (112-346) Total Bilirubin 1.0 MG/DL (0.2-1.0) Aspartate Amino Transf (AST/SGOT) 19 U/L (15-37) Alanine Aminotransferase (ALT/SGPT) 19 U/L (12-78) Alkaline Phosphatase 86 U/L (46-116) Total Protein 7.0 G/DL (6.4-8.2) Albumin 3.1 G/DL (3.4-5.0) L Globulin 3.9 g/dL Albumin/Globulin Ratio 0.8 (1.0-2.7) L Cholesterol Level 204 MG/DL (< 200) H Vitamin B12 Level 307 PG/ML (193-986) Folate 17.6 NG/ML (8.6-58.9) Thyroid Stimulating Hormone (TSH) 1.073 uiU/mL (0.358-3.740) Free Thyroxine 1.20 NG/DL (0.76-1.46) Ferritin 101 NG/ML (8-388) Current Medications Medications (Trade) Dose Ordered Sig/Huma Route PRN Reason Start Time Stop Time Status Last Admin Dose Admin Acetaminophen (Tylenol) 650 mg Q4H PRN ORAL FEVER 01/16/17 02:30 02/13/17 18:29 Albuterol/ Ipratropium (Albuterol/ Ipratropium) 3 ml Q4H PRN HHN Shortness of Breath 01/16/17 02:30 01/19/17 18:29 Amlodipine Besylate (Norvasc) 2.5 mg DAILY ORAL 01/16/17 09:00 02/14/17 08:59 01/16/17 08:56 Aspirin (ASA) 81 mg DAILY ORAL 01/16/17 09:00 02/14/17 10:44 01/16/17 08:56 Bupropion HCl (Wellbutrin SR) 100 mg TWICE A DAY ORAL 01/16/17 09:00 02/14/17 08:59 01/16/17 08:56 Ceftriaxone Sodium 1 gm/ Dextrose 55 ml @ 110 mls/hr Q24H IVPB 01/16/17 21:00 01/22/17 20:59 Dextrose (Dextrose 50%) STAT PRN IV Hypoglycemia 01/16/17 18:30 02/13/17 18:29 Escitalopram Oxalate (Lexapro) 10 mg DAILY ORAL 01/16/17 09:00 02/14/17 08:59 01/16/17 08:56 Heparin Sodium (Porcine) (Heparin 5000 units/ml) 5,000 units EVERY 12 HOURS SUBQ 01/16/17 09:00 02/13/17 20:59 01/16/17 09:01 Iron Sucrose 100 mg/Sodium Chloride 60 ml @ 240 mls/hr BEDTIME IV 01/16/17 21:00 01/20/17 21:14 Lorazepam (Ativan 2mg/ml 1ml) 2 mg Q2H PRN IV For Anxiety 01/16/17 02:30 01/21/17 18:29 Lorazepam (Ativan) 0.5 mg THREE TIMES A DAY ORAL 01/16/17 09:00 01/22/17 08:59 01/16/17 08:57 Metronidazole 100 ml @ 100 mls/hr Q8HR IVPB 01/16/17 06:00 01/22/17 13:59 01/16/17 06:07 Morphine Sulfate (Morphine Sulfate) 4 mg Q4H PRN IVP Severe Pain (Pain Scale 7-10) 01/16/17 02:30 01/21/17 18:29 Ondansetron HCl (Zofran) 4 mg Q6H PRN IVP Nausea & Vomiting 01/16/17 06:30 02/13/17 18:29 Pantoprazole (Protonix) 40 mg DAILY ORAL 01/16/17 09:00 02/15/17 08:59 01/16/17 08:55 Polyethylene Glycol (Miralax) 17 gm DAILYPRN PRN ORAL Constipation 01/16/17 18:30 02/13/17 18:29 Sodium Chloride 1,000 ml @ 50 mls/hr Q20H IV 01/16/17 00:45 02/13/17 19:29 01/16/17 01:53 Tamsulosin HCl (Flomax) 0.4 mg BEDTIME ORAL 01/16/17 21:00 02/14/17 20:59 Kristen Jones M.D. Jan 16, 2017 09:24
--- NOTE | 2017-01-16 10:52 | Diagnostic Imaging Report ---
Indication: Abnormal renal function test Technique: Renal ultrasound Comparison: CT abdomen and pelvis 01/14/17 Findings: Right kidney measures 11.8 cm. Left kidney measures 10.4 cm. As seen on the CT scan, there is fullness of the bilateral renal pelves, moderate on the right and mild on the left. No ureteral dilatation was identified by CT. There is a 1.0 cm cortical cyst of the right kidney. There is a 1.3 cm cyst in the upper pole of left kidney and a 1.1 cm cyst in the lower pole of the left kidney. Bladder is distended and otherwise grossly unremarkable. Visualized IVC is unremarkable. Impression: Fullness of the bilateral renal pelves, moderate on the right and mild on the left but no ureteral dilatation demonstrated by CT. No sonographically evident renal calculi. Clinical correlation recommended. Bilateral renal cysts.
[2017-01-16 11:51] VITALS: BP 118/78
[2017-01-16 16:00] VITALS: BP 132/81
--- NOTE | 2017-01-16 16:48 | Pulmonology Progress Note ---
Assessment/Plan Problems: (1) CHF (congestive heart failure) (2) CAD (coronary artery disease) (3) Pneumonia Assessment/Plan wbc decreasing, afebrile improving all noted ID f/u med/surg cxr in am check echo; check electrolytes. Subjective ROS Limited/Unobtainable: No Allergies: Coded Allergies: No Known Allergies (Unverified , 01/14/17) Objective Last 24 Hour Vital Signs Date Time Temp Pulse Resp B/P (MAP) Pulse Ox O2 Delivery O2 Flow Rate FiO2 01/16/17 11:51 97.4 88 19 118/78 94 Room Air 01/16/17 08:56 77 129/77 01/16/17 08:00 98.2 77 18 129/77 92 Room Air 01/16/17 07:52 83 16 Room Air 21 01/16/17 04:00 97.6 73 18 136/80 95 Room Air 01/16/17 00:20 97.7 67 18 127/82 96 Room Air 01/15/17 20:37 64 16 Room Air 21 01/15/17 20:00 97.7 63 18 120/66 95 Room Air Intake and Output 01/16/17 01/17/17 19:00 07:00 Intake Total 760 ml Output Total 350 ml Balance 410 ml Intake Oral 360 ml IV Total 400 ml Output Urine Total 350 ml Objective General Appearance: WD/WN Lines, tubes and drains: peripheral, HEENT: normocephalic, atraumatic Neck: non-tender, normal alignment Respiratory/Chest: chest wall non-tender, lungs clear, normal breath sounds Breasts: no masses Cardiovascular/Chest: normal rate Abdomen: normal bowel sounds Extremities: normal range of motion Microbiology Date/Time Source Procedure Growth Status 01/14/17 14:55 Blood Blood Culture - Preliminary NO GROWTH AFTER 24 HOURS Resulted 01/14/17 14:42 Blood Blood Culture - Preliminary NO GROWTH AFTER 24 HOURS Resulted Laboratory Tests 01/16/17 05:57: White Blood Count 9.7, Red Blood Count 4.29L, Hemoglobin 13.3L, Hematocrit 39.4L , Mean Corpuscular Volume 92, Mean Corpuscular Hemoglobin 31.0, Mean Corpuscular Hemoglobin Concent 33.7, Red Cell Distribution Width 12.3, Platelet Count 277, Mean Platelet Volume 5.7L, Neutrophils (%) (Auto) 79.5H, Lymphocytes (%) (Auto) 10.9L, Monocytes (%) (Auto) 6.9, Eosinophils (%) (Auto) 2.2, Basophils (%) (Auto) 0.5, Reticulocyte Count 0.7, Prothrombin Time 10.2, Prothromb Time International Ratio 1.0, Activated Partial Thromboplast Time 36H , Sodium Level 140, Potassium Level 4.0, Chloride Level 105, Carbon Dioxide Level 28, Anion Gap 7, Blood Urea Nitrogen 20H, Creatinine 1.3, Estimat Glomerular Filtration Rate , Glucose Level 108H, Calcium Level 9.2, Phosphorus Level 3.1, Magnesium Level 1.8, Iron Level 32L, Total Iron Binding Capacity 277 , Percent Iron Saturation 12L, Unsaturated Iron Binding 245, Total Bilirubin 1.0 , Aspartate Amino Transf (AST/SGOT) 19, Alanine Aminotransferase (ALT/SGPT) 19, Alkaline Phosphatase 86, Total Protein 7.0, Albumin 3.1L, Globulin 3.9, Albumin/ Globulin Ratio 0.8L, Cholesterol Level 204H, Vitamin B12 Level 307, Folate 17.6 , Thyroid Stimulating Hormone (TSH) 1.073, Free Thyroxine 1.20 01/16/17 06:46: Ferritin 101 Current Medications Medications (Trade) Dose Ordered Sig/Huma Route PRN Reason Start Time Stop Time Status Last Admin Dose Admin Acetaminophen (Tylenol) 650 mg Q4H PRN ORAL FEVER 01/16/17 02:30 02/13/17 18:29 Albuterol/ Ipratropium (Albuterol/ Ipratropium) 3 ml Q4H PRN HHN Shortness of Breath 01/16/17 02:30 01/19/17 18:29 Amlodipine Besylate (Norvasc) 2.5 mg DAILY ORAL 01/16/17 09:00 02/14/17 08:59 01/16/17 08:56 Aspirin (ASA) 81 mg DAILY ORAL 01/16/17 09:00 02/14/17 10:44 01/16/17 08:56 Bupropion HCl (Wellbutrin SR) 100 mg TWICE A DAY ORAL 01/16/17 09:00 02/14/17 08:59 01/16/17 08:56 Ceftriaxone Sodium 1 gm/ Dextrose 55 ml @ 110 mls/hr Q24H IVPB 01/16/17 21:00 01/22/17 20:59 Dextrose (Dextrose 50%) STAT PRN IV Hypoglycemia 01/16/17 18:30 02/13/17 18:29 Escitalopram Oxalate (Lexapro) 10 mg DAILY ORAL 01/16/17 09:00 02/14/17 08:59 01/16/17 08:56 Heparin Sodium (Porcine) (Heparin 5000 units/ml) 5,000 units EVERY 12 HOURS SUBQ 01/16/17 09:00 02/13/17 20:59 01/16/17 09:01 Iron Sucrose 100 mg/Sodium Chloride 60 ml @ 240 mls/hr BEDTIME IV 01/16/17 21:00 01/20/17 21:14 Lorazepam (Ativan 2mg/ml 1ml) 2 mg Q2H PRN IV For Anxiety 01/16/17 02:30 01/21/17 18:29 Lorazepam (Ativan) 0.5 mg THREE TIMES A DAY ORAL 01/16/17 09:00 01/22/17 08:59 01/16/17 13:32 Metronidazole 100 ml @ 100 mls/hr Q8HR IVPB 01/16/17 06:00 01/22/17 13:59 01/16/17 15:37 Morphine Sulfate (Morphine Sulfate) 4 mg Q4H PRN IVP Severe Pain (Pain Scale 7-10) 01/16/17 02:30 01/21/17 18:29 Ondansetron HCl (Zofran) 4 mg Q6H PRN IVP Nausea & Vomiting 01/16/17 06:30 02/13/17 18:29 Pantoprazole (Protonix) 40 mg DAILY ORAL 01/16/17 09:00 02/15/17 08:59 01/16/17 08:55 Polyethylene Glycol (Miralax) 17 gm DAILYPRN PRN ORAL Constipation 01/16/17 18:30 02/13/17 18:29 Sodium Chloride 1,000 ml @ 50 mls/hr Q20H IV 01/16/17 00:45 02/13/17 19:29 01/16/17 01:53 Tamsulosin HCl (Flomax) 0.4 mg BEDTIME ORAL 01/16/17 21:00 02/14/17 20:59 ARYAN GRIFFIN Jan 16, 2017 16:48
[2017-01-16] MEDS ORDERED: NS 500ML ONE (17:26)
[2017-01-16] MEDS ORDERED: Miralax 17gm pkt ORAL PRN (18:30)
--- NOTE | 2017-01-16 19:44 | Internal Med Progress Note ---
Subjective Physician Name Kennedy Ng Attending Physician Kennedy Ng MD Current Medications Medications (Trade) Dose Ordered Sig/Huma Route PRN Reason Start Time Stop Time Status Last Admin Dose Admin Acetaminophen (Tylenol) 650 mg Q4H PRN ORAL FEVER 01/16/17 02:30 02/13/17 18:29 Albuterol/ Ipratropium (Albuterol/ Ipratropium) 3 ml Q4H PRN HHN Shortness of Breath 01/16/17 02:30 01/19/17 18:29 Amlodipine Besylate (Norvasc) 2.5 mg DAILY ORAL 01/16/17 09:00 02/14/17 08:59 01/16/17 08:56 Aspirin (ASA) 81 mg DAILY ORAL 01/16/17 09:00 02/14/17 10:44 01/16/17 08:56 Bupropion HCl (Wellbutrin SR) 100 mg TWICE A DAY ORAL 01/16/17 09:00 02/14/17 08:59 01/16/17 17:10 Ceftriaxone Sodium 1 gm/ Dextrose 55 ml @ 110 mls/hr Q24H IVPB 01/16/17 21:00 01/22/17 20:59 Dextrose (Dextrose 50%) STAT PRN IV Hypoglycemia 01/16/17 18:30 02/13/17 18:29 Escitalopram Oxalate (Lexapro) 10 mg DAILY ORAL 01/16/17 09:00 02/14/17 08:59 01/16/17 08:56 Heparin Sodium (Porcine) (Heparin 5000 units/ml) 5,000 units EVERY 12 HOURS SUBQ 01/16/17 09:00 02/13/17 20:59 01/16/17 09:01 Iron Sucrose 100 mg/Sodium Chloride 60 ml @ 240 mls/hr BEDTIME IV 01/16/17 21:00 01/20/17 21:14 Lorazepam (Ativan 2mg/ml 1ml) 2 mg Q2H PRN IV For Anxiety 01/16/17 02:30 01/21/17 18:29 Lorazepam (Ativan) 0.5 mg THREE TIMES A DAY ORAL 01/16/17 09:00 01/22/17 08:59 01/16/17 17:10 Metronidazole 100 ml @ 100 mls/hr Q8HR IVPB 01/16/17 06:00 01/22/17 13:59 01/16/17 15:37 Morphine Sulfate (Morphine Sulfate) 4 mg Q4H PRN IVP Severe Pain (Pain Scale 7-10) 01/16/17 02:30 01/21/17 18:29 Ondansetron HCl (Zofran) 4 mg Q6H PRN IVP Nausea & Vomiting 01/16/17 06:30 02/13/17 18:29 Pantoprazole (Protonix) 40 mg DAILY ORAL 01/16/17 09:00 02/15/17 08:59 01/16/17 08:55 Polyethylene Glycol (Miralax) 17 gm DAILYPRN PRN ORAL Constipation 01/16/17 18:30 02/13/17 18:29 Sodium Chloride 1,000 ml @ 50 mls/hr Q20H IV 01/16/17 00:45 02/13/17 19:29 01/16/17 01:53 Tamsulosin HCl (Flomax) 0.4 mg BEDTIME ORAL 01/16/17 21:00 02/14/17 20:59 Allergies: Coded Allergies: No Known Allergies (Unverified , 01/14/17) Subjective awake, alert, responsive, No CP or SOB,feeling good Objective Last Vital Signs Date Time Temp Pulse Resp B/P (MAP) Pulse Ox O2 Delivery O2 Flow Rate FiO2 01/16/17 16:00 97.9 72 19 132/81 96 Room Air 01/16/17 07:52 21 Laboratory Tests Test 01/16/17 05:57 01/16/17 06:46 White Blood Count 9.7 K/UL (4.8-10.8) Red Blood Count 4.29 M/UL (4.70-6.10) L Hemoglobin 13.3 G/DL (14.2-18.0) L Hematocrit 39.4 % (42.0-52.0) L Mean Corpuscular Volume 92 FL (80-99) Mean Corpuscular Hemoglobin 31.0 PG (27.0-31.0) Mean Corpuscular Hemoglobin Concent 33.7 G/DL (32.0-36.0) Red Cell Distribution Width 12.3 % (11.6-14.8) Platelet Count 277 K/UL (150-450) Mean Platelet Volume 5.7 FL (6.5-10.1) L Neutrophils (%) (Auto) 79.5 % (45.0-75.0) H Lymphocytes (%) (Auto) 10.9 % (20.0-45.0) L Monocytes (%) (Auto) 6.9 % (1.0-10.0) Eosinophils (%) (Auto) 2.2 % (0.0-3.0) Basophils (%) (Auto) 0.5 % (0.0-2.0) Reticulocyte Count 0.7 % (0.0-2.0) Prothrombin Time 10.2 SEC (9.30-11.50) Prothromb Time International Ratio 1.0 (0.9-1.1) Activated Partial Thromboplast Time 36 SEC (23-33) H Sodium Level 140 MMOL/L (136-145) Potassium Level 4.0 MMOL/L (3.5-5.1) Chloride Level 105 MMOL/L (98-107) Carbon Dioxide Level 28 MMOL/L (21-32) Anion Gap 7 mmol/L (5-15) Blood Urea Nitrogen 20 mg/dL (7-18) H Creatinine 1.3 MG/DL (0.55-1.30) Estimat Glomerular Filtration Rate mL/min (>60) Glucose Level 108 MG/DL (74-106) H Calcium Level 9.2 MG/DL (8.5-10.1) Phosphorus Level 3.1 MG/DL (2.5-4.9) Magnesium Level 1.8 MG/DL (1.8-2.4) Iron Level 32 ug/dL (50-175) L Total Iron Binding Capacity 277 ug/dL (250-450) Percent Iron Saturation 12 % (15-50) L Unsaturated Iron Binding 245 ug/dL (112-346) Total Bilirubin 1.0 MG/DL (0.2-1.0) Aspartate Amino Transf (AST/SGOT) 19 U/L (15-37) Alanine Aminotransferase (ALT/SGPT) 19 U/L (12-78) Alkaline Phosphatase 86 U/L (46-116) Total Protein 7.0 G/DL (6.4-8.2) Albumin 3.1 G/DL (3.4-5.0) L Globulin 3.9 g/dL Albumin/Globulin Ratio 0.8 (1.0-2.7) L Cholesterol Level 204 MG/DL (< 200) H Vitamin B12 Level 307 PG/ML (193-986) Folate 17.6 NG/ML (8.6-58.9) Thyroid Stimulating Hormone (TSH) 1.073 uiU/mL (0.358-3.740) Free Thyroxine 1.20 NG/DL (0.76-1.46) Ferritin 101 NG/ML (8-388) Microbiology Date/Time Source Procedure Growth Status 01/14/17 14:55 Blood Blood Culture - Preliminary NO GROWTH AFTER 24 HOURS Resulted 01/14/17 14:42 Blood Blood Culture - Preliminary NO GROWTH AFTER 24 HOURS Resulted Intake and Output 01/16/17 01/17/17 19:00 07:00 Intake Total 1030 ml Output Total 650 ml Balance 380 ml Intake Oral 480 ml IV Total 550 ml Output Urine Total 650 ml Objective General: No acute distress, awake and alert HEENT: NCAT, sclera anicteric, PERRL, EOMI. Neck: Supple, no significant jugular venous distention, Lungs: Good inspiratory effort, clear to auscultation bilaterally, no Wheeze or Rales. Heart: Regular rate and rhythm, Distant heart sound, normal S1/S2, no murmurs Abdomen: soft, nontender, nondistended. Normoactive bowel sounds. Obesity. / Rectal: Refused and deferred. Extremities: No Cyanosis , clubbing or edema. Neuro: A&O x 3, Able to move all extremities Skin: warm, no rashes Psych: Normal mood and affect Assessment/Plan Assessment/Plan Aspiration Pneumonia, Chest pain R/O ACS Iron Deficiency anemia CAD ASHD HTN JULIETA / ATN on CKD BPH Thickening of the stomach possible PUD Anxiety / Depression Plan: Abx: Rocephin and Flagyl Full code Heparin SQ 2D Echo monitor labs and cultures IV Iron F/U with Dr. Holder Recommendation: EGD soon DC Telemetry CT chest and abdomen: Impression: * Groundglass opacities and patchy consolidations in the right middle and lower lobe. Findings are concerning for pneumonia. * Diverticulosis without evidence of acute diverticulitis. * Moderately distended bladder with enlarged, heterogeneous prostate. Correlate for degree of bladder outlet obstruction. There is herniation of portions of the bladder via a right inguinal hernia. * Small hiatal hernia. Apparent thickening of the stomach, poorly evaluated without p.o. contrast. True gastric thickening/mass not excludable. Correlate clinically. Consider endoscopy. * Multiple lesions in the kidneys, and which demonstrate increased density and may be hemorrhagic or pertinacious cyst. Contrast-enhanced exam or ultrasound would provide better assessment. * Hepatic steatosis. * Coronary artery disease. * Trace pericardial effusion. Kennedy Ng MD Jan 16, 2017 19:44
[2017-01-16 20:28] VITALS: BP 139/79
[2017-01-16] MEDS: Iron Sucrose 100 MG in NS 55 ML IV SCH (21:21)
[2017-01-16] MEDS: Tamsulosin 0.4mg cap ORAL SCH (21:22)
[2017-01-16] MEDS: cefTRIAXone 1 GM in D5W 55 ML IVPB SCH (21:37)
--- NOTE | 2017-01-16 23:07 | Nephrology Progress Note ---
Assessment/Plan Assessment 1. Acute renal failure, 2. Pneumonia. 3. Hypertension. 4. Hypoalbuminemia. Plan plan to continue ivf monitoring renal function avoid NSAID replace electrolyte as need it Subjective Constitutional: Reports: no symptoms HEENT: Reports: no symptoms Genitourinary: Reports: no symptoms Neurologic/Psychiatric: Reports: no symptoms Subjective no complaints Objective Objective Last 24 Hour Vital Signs Date Time Temp Pulse Resp B/P (MAP) Pulse Ox O2 Delivery O2 Flow Rate FiO2 01/16/17 20:28 98.3 69 17 139/79 90 01/16/17 20:02 75 16 Room Air 21 01/16/17 16:00 97.9 72 19 132/81 96 Room Air 01/16/17 11:51 97.4 88 19 118/78 94 Room Air 01/16/17 08:56 77 129/77 01/16/17 08:00 98.2 77 18 129/77 92 Room Air 01/16/17 07:52 83 16 Room Air 21 01/16/17 04:00 97.6 73 18 136/80 95 Room Air 01/16/17 00:20 97.7 67 18 127/82 96 Room Air Intake and Output 01/16/17 01/17/17 19:00 07:00 Intake Total 1030 ml Output Total 650 ml Balance 380 ml Intake Oral 480 ml IV Total 550 ml Output Urine Total 650 ml Laboratory Tests 01/16/17 05:57: White Blood Count 9.7, Red Blood Count 4.29L, Hemoglobin 13.3L, Hematocrit 39.4L , Mean Corpuscular Volume 92, Mean Corpuscular Hemoglobin 31.0, Mean Corpuscular Hemoglobin Concent 33.7, Red Cell Distribution Width 12.3, Platelet Count 277, Mean Platelet Volume 5.7L, Neutrophils (%) (Auto) 79.5H, Lymphocytes (%) (Auto) 10.9L, Monocytes (%) (Auto) 6.9, Eosinophils (%) (Auto) 2.2, Basophils (%) (Auto) 0.5, Reticulocyte Count 0.7, Prothrombin Time 10.2, Prothromb Time International Ratio 1.0, Activated Partial Thromboplast Time 36H , Sodium Level 140, Potassium Level 4.0, Chloride Level 105, Carbon Dioxide Level 28, Anion Gap 7, Blood Urea Nitrogen 20H, Creatinine 1.3, Estimat Glomerular Filtration Rate , Glucose Level 108H, Calcium Level 9.2, Phosphorus Level 3.1, Magnesium Level 1.8, Iron Level 32L, Total Iron Binding Capacity 277 , Percent Iron Saturation 12L, Unsaturated Iron Binding 245, Total Bilirubin 1.0 , Aspartate Amino Transf (AST/SGOT) 19, Alanine Aminotransferase (ALT/SGPT) 19, Alkaline Phosphatase 86, Total Protein 7.0, Albumin 3.1L, Globulin 3.9, Albumin/ Globulin Ratio 0.8L, Cholesterol Level 204H, Vitamin B12 Level 307, Folate 17.6 , Thyroid Stimulating Hormone (TSH) 1.073, Free Thyroxine 1.20 01/16/17 06:46: Ferritin 101 01/16/17 20:15: Random Vancomycin Level 2.2 Height (Feet): 5 Height (Inches): 4.00 Weight (Pounds): 150 Objective HEAD AND NECK: No JVP. No LAD. No thyromegaly. Extraocular movement intact. Pupils are reactive to light and accommodation. LUNGS: Clear to auscultation. CARDIAC: Regular rate and rhythm. S1, S2 normal. No rub. ABDOMEN: Soft, nontender, and nondistended. EXTREMITIES: No edema. No clubbing. No cyanosis. KATEI NEWSOME Jan 16, 2017 23:07
--- NOTE | 2017-01-16 23:55 | Cardiology Progress Note ---
Assessment/Plan Assessment/Plan 1. Dyspnea, most likely due to underlying pneumonia. Normal beta natriuretic peptide essentially rules out congestive heart failure. 2D echo reveals normal LV systolic function with LVEF at 60%. 2. History of angina, questionable coronary artery disease, AMI is ruled out. 3. History of hypertension, continue amlodipine. Subjective Subjective Transferred to the med-surg unit. Objective Last 24 Hour Vital Signs Date Time Temp Pulse Resp B/P (MAP) Pulse Ox O2 Delivery O2 Flow Rate FiO2 01/16/17 20:28 98.3 69 17 139/79 90 01/16/17 20:02 75 16 Room Air 21 01/16/17 16:00 97.9 72 19 132/81 96 Room Air 01/16/17 11:51 97.4 88 19 118/78 94 Room Air 01/16/17 08:56 77 129/77 01/16/17 08:00 98.2 77 18 129/77 92 Room Air 01/16/17 07:52 83 16 Room Air 21 01/16/17 04:00 97.6 73 18 136/80 95 Room Air 01/16/17 00:20 97.7 67 18 127/82 96 Room Air Intake and Output 01/16/17 01/17/17 19:00 07:00 Intake Total 1030 ml Output Total 650 ml Balance 380 ml Intake Oral 480 ml IV Total 550 ml Output Urine Total 650 ml 2D Echo: LVEF 60-65%, Mild LAE, Grade I lVDD Laboratory Tests Test 01/16/17 05:57 01/16/17 06:46 01/16/17 20:15 White Blood Count 9.7 K/UL (4.8-10.8) Red Blood Count 4.29 M/UL (4.70-6.10) L Hemoglobin 13.3 G/DL (14.2-18.0) L Hematocrit 39.4 % (42.0-52.0) L Mean Corpuscular Volume 92 FL (80-99) Mean Corpuscular Hemoglobin 31.0 PG (27.0-31.0) Mean Corpuscular Hemoglobin Concent 33.7 G/DL (32.0-36.0) Red Cell Distribution Width 12.3 % (11.6-14.8) Platelet Count 277 K/UL (150-450) Mean Platelet Volume 5.7 FL (6.5-10.1) L Neutrophils (%) (Auto) 79.5 % (45.0-75.0) H Lymphocytes (%) (Auto) 10.9 % (20.0-45.0) L Monocytes (%) (Auto) 6.9 % (1.0-10.0) Eosinophils (%) (Auto) 2.2 % (0.0-3.0) Basophils (%) (Auto) 0.5 % (0.0-2.0) Reticulocyte Count 0.7 % (0.0-2.0) Prothrombin Time 10.2 SEC (9.30-11.50) Prothromb Time International Ratio 1.0 (0.9-1.1) Activated Partial Thromboplast Time 36 SEC (23-33) H Sodium Level 140 MMOL/L (136-145) Potassium Level 4.0 MMOL/L (3.5-5.1) Chloride Level 105 MMOL/L (98-107) Carbon Dioxide Level 28 MMOL/L (21-32) Anion Gap 7 mmol/L (5-15) Blood Urea Nitrogen 20 mg/dL (7-18) H Creatinine 1.3 MG/DL (0.55-1.30) Estimat Glomerular Filtration Rate mL/min (>60) Glucose Level 108 MG/DL (74-106) H Calcium Level 9.2 MG/DL (8.5-10.1) Phosphorus Level 3.1 MG/DL (2.5-4.9) Magnesium Level 1.8 MG/DL (1.8-2.4) Iron Level 32 ug/dL (50-175) L Total Iron Binding Capacity 277 ug/dL (250-450) Percent Iron Saturation 12 % (15-50) L Unsaturated Iron Binding 245 ug/dL (112-346) Total Bilirubin 1.0 MG/DL (0.2-1.0) Aspartate Amino Transf (AST/SGOT) 19 U/L (15-37) Alanine Aminotransferase (ALT/SGPT) 19 U/L (12-78) Alkaline Phosphatase 86 U/L (46-116) Total Protein 7.0 G/DL (6.4-8.2) Albumin 3.1 G/DL (3.4-5.0) L Globulin 3.9 g/dL Albumin/Globulin Ratio 0.8 (1.0-2.7) L Cholesterol Level 204 MG/DL (< 200) H Vitamin B12 Level 307 PG/ML (193-986) Folate 17.6 NG/ML (8.6-58.9) Thyroid Stimulating Hormone (TSH) 1.073 uiU/mL (0.358-3.740) Free Thyroxine 1.20 NG/DL (0.76-1.46) Ferritin 101 NG/ML (8-388) Random Vancomycin Level 2.2 ug/mL Microbiology Date/Time Source Procedure Growth Status 01/14/17 14:55 Blood Blood Culture - Preliminary NO GROWTH AFTER 24 HOURS Resulted 01/14/17 14:42 Blood Blood Culture - Preliminary NO GROWTH AFTER 24 HOURS Resulted Objective HEENT: Atraumatic and normocephalic. Anicteric. Pupils are equal, round, reactive and accommodation. Extraocular muscles intact. NECK: JVP less than 5 cm. No carotid bruit. Carotid upstroke is 2+ bilaterally. CVS: Normal S1, S2. Regular rate and rhythm. A 2/6 mid systolic murmur in the left sternal border. PMI is at fourth intercostal space in the midclavicular line. LUNGS: Clear to auscultation bilaterally. ABDOMEN: Soft, nontender, and nondistended. No hepatosplenomegaly. Positive bowel sounds. EXTREMITIES: No evidence of edema, clubbing, or cyanosis. RICKI FALCON Jan 16, 2017 23:55
[2017-01-17 00:29] VITALS: BP 126/76
[2017-01-17 04:37] VITALS: BP 130/72
--- NOTE | 2017-01-17 07:37 | General Progress Note ---
Assessment/Plan Problem List: (1) Hiatal hernia ICD Codes: K44.9 - Diaphragmatic hernia without obstruction or gangrene SNOMED: 07216118 (2) Diverticulosis ICD Codes: K57.90 - Diverticulosis of intestine, part unspecified, without perforation or abscess without bleeding SNOMED: 304737750 (3) Fatty liver ICD Codes: K76.0 - Fatty (change of) liver, not elsewhere classified SNOMED: 301348050 (4) Anemia ICD Codes: D64.9 - Anemia, unspecified SNOMED: 616805985 (5) Gastric wall thickening ICD Codes: K31.89 - Other diseases of stomach and duodenum SNOMED: 00605914 (6) CAD (coronary artery disease) ICD Codes: I25.10 - Atherosclerotic heart disease of [place] coronary artery without angina pectoris SNOMED: 32232383 (7) Pneumonia ICD Codes: J18.9 - Pneumonia, unspecified organism SNOMED: 736599343 Assessment/Plan iv iron ppi fu labs needs EGD cardiology in put appreciated plan EGD in AM Subjective ROS Limited/Unobtainable: Yes Allergies: Coded Allergies: No Known Allergies (Unverified , 01/14/17) Subjective no abd pain Objective Last 24 Hour Vital Signs Date Time Temp Pulse Resp B/P (MAP) Pulse Ox O2 Delivery O2 Flow Rate FiO2 01/17/17 04:38 Room Air 01/17/17 04:37 98.1 60 18 130/72 93 01/17/17 00:30 Room Air 01/17/17 00:29 98.4 62 19 126/76 92 01/16/17 20:29 Room Air 01/16/17 20:28 98.3 69 17 139/79 90 01/16/17 20:02 75 16 Room Air 21 01/16/17 16:00 97.9 72 19 132/81 96 Room Air 01/16/17 11:51 97.4 88 19 118/78 94 Room Air 01/16/17 08:56 77 129/77 01/16/17 08:00 98.2 77 18 129/77 92 Room Air 01/16/17 07:52 83 16 Room Air 21 Laboratory Tests 01/16/17 20:15: Random Vancomycin Level 2.2 Height (Feet): 5 Height (Inches): 4.00 Weight (Pounds): 150 General Appearance: alert EENT: normal ENT inspection Neck: supple Cardiovascular: normal rate Respiratory/Chest: decreased breath sounds Abdomen: normal bowel sounds, non tender, soft Extremities: non-tender JUAN CARLOS MEJIA Jan 17, 2017 07:37
[2017-01-17] MEDS: LORazepam 0.5mg tab ORAL SCH ×3 (08:05→17:11)
[2017-01-17] MEDS: BuPROPion SR 100mg tab ORAL SCH ×2 (08:06→17:11)
[2017-01-17] MEDS: Aspirin Baby 81mg ORAL SCH (08:06)
[2017-01-17 08:10] VITALS: BP 146/82
[2017-01-17] MEDS: Heparin 5000 units/ml inj SUBQ SCH ×2 (08:12→20:54)
[2017-01-17 08:22] LABS: BASOPHILS % (AUTO) 0.5 % (0.0-2.0); EOSINOPHILS % (AUTO) 1.8 % (0.0-3.0); LYMPHOCYTES % (AUTO) 13.2 % (20.0-45.0); MEAN CORPUSCULAR HEMOGLOBIN 31.8 PG (27.0-31.0); MEAN CORPUSCULAR HGB CONC 34.8 G/DL (32.0-36.0); MEAN CORPUSCULAR VOLUME 91 FL (80-99); MEAN PLATELET VOLUME 5.6 FL (6.5-10.1); MONOCYTES % (AUTO) 6.8 % (1.0-10.0); NEUTROPHILS % (AUTO) 77.7 % (45.0-75.0); PLATELET COUNT 288 K/UL (150-450); RED BLOOD COUNT 4.19 M/UL (4.70-6.10); RED CELL DISTRIBUTION WIDTH 12.3 % (11.6-14.8); WHITE BLOOD COUNT 8.6 K/UL (4.8-10.8)
[2017-01-17 08:46] LABS: ALANINE AMINOTRANSFERASE 16 U/L (12-78); ALBUMIN/GLOBULIN RATIO 0.8 (1.0-2.7); ANION GAP 8 mmol/L (5-15); ASPARTATE AMINO TRANSFERASE 16 U/L (15-37); CALCIUM 9.2 MG/DL (8.5-10.1); CARBON DIOXIDE 26 MMOL/L (21-32); CHLORIDE 105 MMOL/L (98-107); CREATININE 1.4 MG/DL (0.55-1.30); POTASSIUM 4.2 MMOL/L (3.5-5.1); SODIUM 138 MMOL/L (136-145); TOTAL PROTEIN 6.9 G/DL (6.4-8.2)
[2017-01-17] MEDS ORDERED: 1/2 NS 1000ml IV ONE (10:02)
[2017-01-17] MEDS ORDERED: Tubing IV Secondary IV ONE (10:02)
--- NOTE | 2017-01-17 10:21 | Diagnostic Imaging Report ---
Indication: DYSPNEA Technique: XRAY CHEST 1 V Comparison:01/14/17 Findings: Compared previous study there has been little change. The heart appears enlarged. There is elongation of the aorta. Linear density is noted in the right lung base. There is no congestive heart failure. No pleural fluid. Impression: Cardiomegaly. Atherosclerotic change. Atelectasis or scarring in the right lung base.
[2017-01-17 11:51] VITALS: BP 148/77
--- NOTE | 2017-01-17 14:17 | Pulmonology Progress Note ---
Assessment/Plan Problems: (1) CHF (congestive heart failure) (2) CAD (coronary artery disease) (3) Pneumonia Assessment/Plan c.o insomnia wbc decreasing, afebrile improving all noted ID f/u med/surg cxr in am check electrolytes. Subjective ROS Limited/Unobtainable: No Constitutional: Reports: no symptoms HEENT: Repors: no symptoms Respiratory: Reports: no symptoms Cardiovascular: Reports: no symptoms Allergies: Coded Allergies: No Known Allergies (Unverified , 01/14/17) Objective Last 24 Hour Vital Signs Date Time Temp Pulse Resp B/P (MAP) Pulse Ox O2 Delivery O2 Flow Rate FiO2 01/17/17 11:51 98.1 82 20 148/77 95 01/17/17 08:10 99.3 90 20 146/82 94 01/17/17 08:06 90 146/82 01/17/17 07:30 92 16 Room Air 21 01/17/17 04:38 Room Air 01/17/17 04:37 98.1 60 18 130/72 93 01/17/17 00:30 Room Air 01/17/17 00:29 98.4 62 19 126/76 92 01/16/17 20:29 Room Air 01/16/17 20:28 98.3 69 17 139/79 90 01/16/17 20:02 75 16 Room Air 21 01/16/17 16:00 97.9 72 19 132/81 96 Room Air Intake and Output 01/17/17 01/18/17 19:00 07:00 Intake Total 690 ml Output Total 400 ml Balance 290 ml Intake Oral 540 ml IV Total 150 ml Output Urine Total 400 ml # Voids 1 Objective General Appearance: WD/WN Lines, tubes and drains: peripheral, HEENT: normocephalic, atraumatic Neck: non-tender, normal alignment Respiratory/Chest: chest wall non-tender, lungs clear, normal breath sounds Breasts: no masses Cardiovascular/Chest: normal rate Abdomen: normal bowel sounds Extremities: normal range of motion Microbiology Date/Time Source Procedure Growth Status 01/14/17 14:55 Blood Blood Culture - Preliminary NO GROWTH AFTER 48 HOURS Resulted 01/14/17 14:42 Blood Blood Culture - Preliminary NO GROWTH AFTER 48 HOURS Resulted Laboratory Tests 01/16/17 20:15: Random Vancomycin Level 2.2 01/17/17 07:34: White Blood Count 8.6, Red Blood Count 4.19L, Hemoglobin 13.3L, Hematocrit 38.3L , Mean Corpuscular Volume 91, Mean Corpuscular Hemoglobin 31.8H, Mean Corpuscular Hemoglobin Concent 34.8, Red Cell Distribution Width 12.3, Platelet Count 288, Mean Platelet Volume 5.6L, Neutrophils (%) (Auto) 77.7H, Lymphocytes (%) (Auto) 13.2L, Monocytes (%) (Auto) 6.8, Eosinophils (%) (Auto) 1.8, Basophils (%) (Auto) 0.5, Sodium Level 138, Potassium Level 4.2, Chloride Level 105, Carbon Dioxide Level 26, Anion Gap 8, Blood Urea Nitrogen 17, Creatinine 1.4H, Estimat Glomerular Filtration Rate , Glucose Level 194H, Calcium Level 9.2 , Total Bilirubin 0.6, Aspartate Amino Transf (AST/SGOT) 16, Alanine Aminotransferase (ALT/SGPT) 16, Alkaline Phosphatase 83, Pro-B-Type Natriuretic Peptide 48, Total Protein 6.9, Albumin 3.0L, Globulin 3.9, Albumin/Globulin Ratio 0.8L Current Medications Medications (Trade) Dose Ordered Sig/Huma Route PRN Reason Start Time Stop Time Status Last Admin Dose Admin Acetaminophen (Tylenol) 650 mg Q4H PRN ORAL FEVER 01/16/17 02:30 02/13/17 18:29 Albuterol/ Ipratropium (Albuterol/ Ipratropium) 3 ml Q4H PRN HHN Shortness of Breath 01/16/17 02:30 01/19/17 18:29 Amlodipine Besylate (Norvasc) 2.5 mg DAILY ORAL 01/16/17 09:00 02/14/17 08:59 01/17/17 08:06 Aspirin (ASA) 81 mg DAILY ORAL 01/16/17 09:00 02/14/17 10:44 01/17/17 08:06 Bupropion HCl (Wellbutrin SR) 100 mg TWICE A DAY ORAL 01/16/17 09:00 02/14/17 08:59 01/17/17 08:06 Ceftriaxone Sodium 1 gm/ Dextrose 55 ml @ 110 mls/hr Q24H IVPB 01/16/17 21:00 01/22/17 20:59 01/16/17 21:37 Dextrose (Dextrose 50%) STAT PRN IV Hypoglycemia 01/16/17 18:30 02/13/17 18:29 Escitalopram Oxalate (Lexapro) 10 mg DAILY ORAL 01/16/17 09:00 02/14/17 08:59 01/17/17 08:05 Heparin Sodium (Porcine) (Heparin 5000 units/ml) 5,000 units EVERY 12 HOURS SUBQ 01/16/17 09:00 02/13/17 20:59 01/17/17 08:12 Iron Sucrose 100 mg/Sodium Chloride 60 ml @ 240 mls/hr BEDTIME IV 01/16/17 21:00 01/20/17 21:14 01/16/17 21:21 Lorazepam (Ativan 2mg/ml 1ml) 2 mg Q2H PRN IV For Anxiety 01/16/17 02:30 01/21/17 18:29 Lorazepam (Ativan) 0.5 mg THREE TIMES A DAY ORAL 01/16/17 09:00 01/22/17 08:59 01/17/17 12:19 Metronidazole 100 ml @ 100 mls/hr Q8HR IVPB 01/16/17 06:00 01/22/17 13:59 01/17/17 06:39 Morphine Sulfate (Morphine Sulfate) 4 mg Q4H PRN IVP Severe Pain (Pain Scale 7-10) 01/16/17 02:30 01/21/17 18:29 Ondansetron HCl (Zofran) 4 mg Q6H PRN IVP Nausea & Vomiting 01/16/17 06:30 02/13/17 18:29 Pantoprazole (Protonix) 40 mg DAILY ORAL 01/16/17 09:00 02/15/17 08:59 01/17/17 08:06 Polyethylene Glycol (Miralax) 17 gm DAILYPRN PRN ORAL Constipation 01/16/17 18:30 02/13/17 18:29 Sodium Chloride 1,000 ml @ 50 mls/hr Q20H IV 01/16/17 00:45 02/13/17 19:29 01/16/17 21:22 Tamsulosin HCl (Flomax) 0.4 mg BEDTIME ORAL 01/16/17 21:00 02/14/17 20:59 01/16/17 21:22 Zolpidem Tartrate (Ambien) 5 mg HSPRN PRN ORAL Insomnia 01/17/17 20:00 01/24/17 19:59 ARYAN GRIFFIN Jan 17, 2017 14:17
[2017-01-17 15:38] VITALS: BP 145/80
--- NOTE | 2017-01-17 17:52 | Internal Med Progress Note ---
Subjective Physician Name Kennedy Ng Attending Physician Kennedy Ng MD Current Medications Medications (Trade) Dose Ordered Sig/Huma Route PRN Reason Start Time Stop Time Status Last Admin Dose Admin Acetaminophen (Tylenol) 650 mg Q4H PRN ORAL FEVER 01/16/17 02:30 02/13/17 18:29 01/17/17 16:11 Albuterol/ Ipratropium (Albuterol/ Ipratropium) 3 ml Q4H PRN HHN Shortness of Breath 01/16/17 02:30 01/19/17 18:29 Amlodipine Besylate (Norvasc) 2.5 mg DAILY ORAL 01/16/17 09:00 02/14/17 08:59 01/17/17 08:06 Aspirin (ASA) 81 mg DAILY ORAL 01/16/17 09:00 02/14/17 10:44 01/17/17 08:06 Bupropion HCl (Wellbutrin SR) 100 mg TWICE A DAY ORAL 01/16/17 09:00 02/14/17 08:59 01/17/17 17:11 Ceftriaxone Sodium 1 gm/ Dextrose 55 ml @ 110 mls/hr Q24H IVPB 01/16/17 21:00 01/22/17 20:59 01/16/17 21:37 Dextrose (Dextrose 50%) STAT PRN IV Hypoglycemia 01/16/17 18:30 02/13/17 18:29 Escitalopram Oxalate (Lexapro) 10 mg DAILY ORAL 01/16/17 09:00 02/14/17 08:59 01/17/17 08:05 Heparin Sodium (Porcine) (Heparin 5000 units/ml) 5,000 units EVERY 12 HOURS SUBQ 01/16/17 09:00 02/13/17 20:59 01/17/17 08:12 Iron Sucrose 100 mg/Sodium Chloride 60 ml @ 240 mls/hr BEDTIME IV 01/16/17 21:00 01/20/17 21:14 01/16/17 21:21 Lorazepam (Ativan 2mg/ml 1ml) 2 mg Q2H PRN IV For Anxiety 01/16/17 02:30 01/21/17 18:29 Lorazepam (Ativan) 0.5 mg THREE TIMES A DAY ORAL 01/16/17 09:00 01/22/17 08:59 01/17/17 17:11 Metronidazole 100 ml @ 100 mls/hr Q8HR IVPB 01/16/17 06:00 01/22/17 13:59 01/17/17 14:20 Morphine Sulfate (Morphine Sulfate) 4 mg Q4H PRN IVP Severe Pain (Pain Scale 7-10) 01/16/17 02:30 01/21/17 18:29 Ondansetron HCl (Zofran) 4 mg Q6H PRN IVP Nausea & Vomiting 01/16/17 06:30 02/13/17 18:29 Pantoprazole (Protonix) 40 mg DAILY ORAL 01/16/17 09:00 02/15/17 08:59 01/17/17 08:06 Polyethylene Glycol (Miralax) 17 gm DAILYPRN PRN ORAL Constipation 01/16/17 18:30 02/13/17 18:29 Sodium Chloride 1,000 ml @ 50 mls/hr Q20H IV 01/16/17 00:45 02/13/17 19:29 01/17/17 17:11 Tamsulosin HCl (Flomax) 0.4 mg BEDTIME ORAL 01/16/17 21:00 02/14/17 20:59 01/16/17 21:22 Zolpidem Tartrate (Ambien) 5 mg HSPRN PRN ORAL Insomnia 01/17/17 20:00 01/24/17 19:59 Allergies: Coded Allergies: No Known Allergies (Unverified , 01/14/17) Subjective awake, alert, responsive, No CP or SOB, feeling Okay but tired Objective Last Vital Signs Date Time Temp Pulse Resp B/P (MAP) Pulse Ox O2 Delivery O2 Flow Rate FiO2 01/17/17 17:10 99.1 01/17/17 15:38 76 20 145/80 99 01/17/17 07:30 Room Air 21 Laboratory Tests Test 01/16/17 20:15 01/17/17 07:34 Random Vancomycin Level 2.2 ug/mL White Blood Count 8.6 K/UL (4.8-10.8) Red Blood Count 4.19 M/UL (4.70-6.10) L Hemoglobin 13.3 G/DL (14.2-18.0) L Hematocrit 38.3 % (42.0-52.0) L Mean Corpuscular Volume 91 FL (80-99) Mean Corpuscular Hemoglobin 31.8 PG (27.0-31.0) H Mean Corpuscular Hemoglobin Concent 34.8 G/DL (32.0-36.0) Red Cell Distribution Width 12.3 % (11.6-14.8) Platelet Count 288 K/UL (150-450) Mean Platelet Volume 5.6 FL (6.5-10.1) L Neutrophils (%) (Auto) 77.7 % (45.0-75.0) H Lymphocytes (%) (Auto) 13.2 % (20.0-45.0) L Monocytes (%) (Auto) 6.8 % (1.0-10.0) Eosinophils (%) (Auto) 1.8 % (0.0-3.0) Basophils (%) (Auto) 0.5 % (0.0-2.0) Sodium Level 138 MMOL/L (136-145) Potassium Level 4.2 MMOL/L (3.5-5.1) Chloride Level 105 MMOL/L (98-107) Carbon Dioxide Level 26 MMOL/L (21-32) Anion Gap 8 mmol/L (5-15) Blood Urea Nitrogen 17 mg/dL (7-18) Creatinine 1.4 MG/DL (0.55-1.30) H Estimat Glomerular Filtration Rate mL/min (>60) Glucose Level 194 MG/DL (74-106) H Calcium Level 9.2 MG/DL (8.5-10.1) Total Bilirubin 0.6 MG/DL (0.2-1.0) Aspartate Amino Transf (AST/SGOT) 16 U/L (15-37) Alanine Aminotransferase (ALT/SGPT) 16 U/L (12-78) Alkaline Phosphatase 83 U/L (46-116) Pro-B-Type Natriuretic Peptide 48 pg/mL (0-125) Total Protein 6.9 G/DL (6.4-8.2) Albumin 3.0 G/DL (3.4-5.0) L Globulin 3.9 g/dL Albumin/Globulin Ratio 0.8 (1.0-2.7) L Intake and Output 01/17/17 01/18/17 19:00 07:00 Intake Total 690 ml Output Total 400 ml Balance 290 ml Intake Oral 540 ml IV Total 150 ml Output Urine Total 400 ml # Voids 1 Objective General: No acute distress, awake and alert HEENT: NCAT, sclera anicteric, PERRL, EOMI. Neck: Supple, no significant jugular venous distention, Lungs: Good inspiratory effort, clear to auscultation bilaterally, no Wheeze or Rales. Heart: Regular rate and rhythm, Distant heart sound, normal S1/S2, no murmurs Abdomen: soft, nontender, nondistended. Normoactive bowel sounds. Obesity. / Rectal: Refused and deferred. Extremities: No Cyanosis , clubbing or edema. Neuro: A&O x 3, Able to move all extremities Skin: warm, no rashes Psych: Normal mood and affect Assessment/Plan Assessment/Plan Aspiration Pneumonia, Chest pain R/O ACS Iron Deficiency anemia CAD ASHD HTN JULIETA / ATN on CKD BPH Thickening of the stomach possible PUD Anxiety / Depression Plan: Abx: Rocephin and Flagyl Full code Heparin SQ monitor labs and cultures IV Iron F/U with Dr. Holder Recommendation: EGD in [facility] Planning in Kennedy Ng MD Jan 17, 2017 17:52
[2017-01-17 20:00] VITALS: BP 147/80
[2017-01-17] MEDS ORDERED: Zolpidem 5mg tab ORAL PRN (20:00)
[2017-01-17] MEDS: Tamsulosin 0.4mg cap ORAL SCH (20:46)
[2017-01-17] MEDS: Iron Sucrose 100 MG in NS 55 ML IV SCH (20:46)
[2017-01-17] MEDS: cefTRIAXone 1 GM in D5W 55 ML IVPB SCH (20:46)
[2017-01-18] VITALS: BP 161/87
[2017-01-18 04:00] VITALS: BP 127/89
[2017-01-18 06:30] LABS: BASOPHILS % (AUTO) 0.6 % (0.0-2.0); EOSINOPHILS % (AUTO) 1.9 % (0.0-3.0); LYMPHOCYTES % (AUTO) 13.1 % (20.0-45.0); MEAN CORPUSCULAR HEMOGLOBIN 31.3 PG (27.0-31.0); MEAN CORPUSCULAR HGB CONC 34.6 G/DL (32.0-36.0); MEAN CORPUSCULAR VOLUME 91 FL (80-99); MEAN PLATELET VOLUME 5.6 FL (6.5-10.1); MONOCYTES % (AUTO) 8.6 % (1.0-10.0); NEUTROPHILS % (AUTO) 75.9 % (45.0-75.0); PLATELET COUNT 311 K/UL (150-450); RED BLOOD COUNT 4.38 M/UL (4.70-6.10); RED CELL DISTRIBUTION WIDTH 12.3 % (11.6-14.8); WHITE BLOOD COUNT 8.9 K/UL (4.8-10.8)
[2017-01-18 06:53] LABS: ALANINE AMINOTRANSFERASE 32 U/L (12-78); ALBUMIN/GLOBULIN RATIO 0.8 (1.0-2.7); ANION GAP 7 mmol/L (5-15); ASPARTATE AMINO TRANSFERASE 45 U/L (15-37); CALCIUM 9.6 MG/DL (8.5-10.1); CARBON DIOXIDE 27 MMOL/L (21-32); CHLORIDE 104 MMOL/L (98-107); CREATININE 1.3 MG/DL (0.55-1.30); SODIUM 138 MMOL/L (136-145)
--- NOTE | 2017-01-18 07:27 | General Progress Note ---
Assessment/Plan Problem List: (1) Hiatal hernia ICD Codes: K44.9 - Diaphragmatic hernia without obstruction or gangrene SNOMED: 15278333 (2) Diverticulosis ICD Codes: K57.90 - Diverticulosis of intestine, part unspecified, without perforation or abscess without bleeding SNOMED: 128496756 (3) Fatty liver ICD Codes: K76.0 - Fatty (change of) liver, not elsewhere classified SNOMED: 158313859 (4) Anemia ICD Codes: D64.9 - Anemia, unspecified SNOMED: 537365619 (5) Gastric wall thickening ICD Codes: K31.89 - Other diseases of stomach and duodenum SNOMED: 36229732 (6) CAD (coronary artery disease) ICD Codes: I25.10 - Atherosclerotic heart disease of [place] coronary artery without angina pectoris SNOMED: 08234454 (7) Pneumonia ICD Codes: J18.9 - Pneumonia, unspecified organism SNOMED: 618574194 Assessment/Plan iv iron ppi fu labs needs EGD cardiology in put appreciated plan EGD today Subjective ROS Limited/Unobtainable: Yes Allergies: Coded Allergies: No Known Allergies (Unverified , 01/14/17) Subjective no abd pain Objective Last 24 Hour Vital Signs Date Time Temp Pulse Resp B/P (MAP) Pulse Ox O2 Delivery O2 Flow Rate FiO2 01/18/17 04:01 Room Air 01/18/17 04:00 98.4 89 19 127/89 93 01/18/17 00:01 Room Air 01/18/17 00:00 97.8 80 18 161/87 94 01/17/17 20:01 Room Air 01/17/17 20:00 97.8 77 18 147/80 94 01/17/17 19:50 86 16 Room Air 21 01/17/17 17:10 99.1 01/17/17 15:38 99.1 76 20 145/80 99 01/17/17 11:51 98.1 82 20 148/77 95 01/17/17 08:10 99.3 90 20 146/82 94 01/17/17 08:06 90 146/82 01/17/17 07:30 92 16 Room Air 21 Laboratory Tests 01/17/17 07:34: White Blood Count 8.6, Red Blood Count 4.19L, Hemoglobin 13.3L, Hematocrit 38.3L , Mean Corpuscular Volume 91, Mean Corpuscular Hemoglobin 31.8H, Mean Corpuscular Hemoglobin Concent 34.8, Red Cell Distribution Width 12.3, Platelet Count 288, Mean Platelet Volume 5.6L, Neutrophils (%) (Auto) 77.7H, Lymphocytes (%) (Auto) 13.2L, Monocytes (%) (Auto) 6.8, Eosinophils (%) (Auto) 1.8, Basophils (%) (Auto) 0.5, Sodium Level 138, Potassium Level 4.2, Chloride Level 105, Carbon Dioxide Level 26, Anion Gap 8, Blood Urea Nitrogen 17, Creatinine 1.4H, Estimat Glomerular Filtration Rate , Glucose Level 194H, Calcium Level 9.2 , Total Bilirubin 0.6, Aspartate Amino Transf (AST/SGOT) 16, Alanine Aminotransferase (ALT/SGPT) 16, Alkaline Phosphatase 83, Pro-B-Type Natriuretic Peptide 48, Total Protein 6.9, Albumin 3.0L, Globulin 3.9, Albumin/Globulin Ratio 0.8L 01/18/17 03:00: Stool Occult Blood [Pending] 01/18/17 05:00: White Blood Count 8.9, Red Blood Count 4.38L, Hemoglobin 13.7L, Hematocrit 39.7L , Mean Corpuscular Volume 91, Mean Corpuscular Hemoglobin 31.3H, Mean Corpuscular Hemoglobin Concent 34.6, Red Cell Distribution Width 12.3, Platelet Count 311, Mean Platelet Volume 5.6L, Neutrophils (%) (Auto) 75.9H, Lymphocytes (%) (Auto) 13.1L, Monocytes (%) (Auto) 8.6, Eosinophils (%) (Auto) 1.9, Basophils (%) (Auto) 0.6, Sodium Level 138, Potassium Level 4.0, Chloride Level 104, Carbon Dioxide Level 27, Anion Gap 7, Blood Urea Nitrogen 13, Creatinine 1.3, Estimat Glomerular Filtration Rate , Glucose Level 123H, Calcium Level 9.6 , Total Bilirubin 0.5, Aspartate Amino Transf (AST/SGOT) 45H, Alanine Aminotransferase (ALT/SGPT) 32, Alkaline Phosphatase 96, Pro-B-Type Natriuretic Peptide 52, Total Protein 7.0, Albumin 3.1L, Globulin 3.9, Albumin/Globulin Ratio 0.8L Height (Feet): 5 Height (Inches): 5.00 Weight (Pounds): 150 General Appearance: alert EENT: normal ENT inspection Neck: supple Cardiovascular: normal rate Respiratory/Chest: decreased breath sounds Abdomen: normal bowel sounds, non tender, soft Extremities: non-tender JUAN CARLOS MEJIA Jan 18, 2017 07:27
--- NOTE | 2017-01-18 07:28 | Pre-Procedure Note/Attestation ---
Pre-Procedure Note/Attestation Complete Prior to Procedure Planned Procedure: not applicable Procedure Narrative: egd Indications for Procedure Pre-Operative Diagnosis: gerd, gastric wall thickening Attestation I attest that I discussed the nature of the procedure; its benefits; risks and complications; and alternatives (and the risks and benefits of such alternatives ), prior to the procedure, with the patient (or the patient's legal visitor services representative). I attest that, if there was a reasonable possibility of needing a blood transfusion, the patient (or the patient's legal visitor services representative) was given the [facility] standardized written summary, pursuant to the Bayron Tiffanie Blood Safety Act ([place] Health and Safety Code # 1645, as amended). I attest that I re-evaluated the patient just prior to the surgery and that there has been no change in the patient's H&P, except as documented below: JUAN CARLOS MEJIA Jan 18, 2017 07:28
[2017-01-18 08:00] VITALS: BP 144/87
--- NOTE | 2017-01-18 08:20 | Nephrology Progress Note ---
Assessment/Plan Assessment 1. Acute renal failure, 2. Pneumonia. 3. Hypertension. 4. Hypoalbuminemia. Plan plan to continue ivf monitoring renal function avoid NSAID replace electrolyte as need it Subjective Subjective no complaints Objective Objective Last 24 Hour Vital Signs Date Time Temp Pulse Resp B/P (MAP) Pulse Ox O2 Delivery O2 Flow Rate FiO2 01/18/17 07:23 94 18 Room Air 21 01/18/17 04:01 Room Air 01/18/17 04:00 98.4 89 19 127/89 93 01/18/17 00:01 Room Air 01/18/17 00:00 97.8 80 18 161/87 94 01/17/17 20:01 Room Air 01/17/17 20:00 97.8 77 18 147/80 94 01/17/17 19:50 86 16 Room Air 21 01/17/17 17:10 99.1 01/17/17 15:38 99.1 76 20 145/80 99 01/17/17 11:51 98.1 82 20 148/77 95 Laboratory Tests 01/18/17 03:00: Stool Occult Blood [Pending] 01/18/17 05:00: White Blood Count 8.9, Red Blood Count 4.38L, Hemoglobin 13.7L, Hematocrit 39.7L , Mean Corpuscular Volume 91, Mean Corpuscular Hemoglobin 31.3H, Mean Corpuscular Hemoglobin Concent 34.6, Red Cell Distribution Width 12.3, Platelet Count 311, Mean Platelet Volume 5.6L, Neutrophils (%) (Auto) 75.9H, Lymphocytes (%) (Auto) 13.1L, Monocytes (%) (Auto) 8.6, Eosinophils (%) (Auto) 1.9, Basophils (%) (Auto) 0.6, Sodium Level 138, Potassium Level 4.0, Chloride Level 104, Carbon Dioxide Level 27, Anion Gap 7, Blood Urea Nitrogen 13, Creatinine 1.3, Estimat Glomerular Filtration Rate , Glucose Level 123H, Calcium Level 9.6 , Total Bilirubin 0.5, Aspartate Amino Transf (AST/SGOT) 45H, Alanine Aminotransferase (ALT/SGPT) 32, Alkaline Phosphatase 96, Pro-B-Type Natriuretic Peptide 52, Total Protein 7.0, Albumin 3.1L, Globulin 3.9, Albumin/Globulin Ratio 0.8L Height (Feet): 5 Height (Inches): 5.00 Weight (Pounds): 150 Objective HEAD AND NECK: No JVP. No LAD. No thyromegaly. Extraocular movement intact. Pupils are reactive to light and accommodation. LUNGS: Clear to auscultation. CARDIAC: Regular rate and rhythm. S1, S2 normal. No rub. ABDOMEN: Soft, nontender, and nondistended. EXTREMITIES: No edema. No clubbing. No cyanosis. KATIE NEWSOME Jan 18, 2017 08:20
[2017-01-18] MEDS: BuPROPion SR 100mg tab ORAL SCH ×2 (09:00→17:46)
[2017-01-18] MEDS: Aspirin Baby 81mg ORAL SCH (09:46)
[2017-01-18] MEDS: LORazepam 0.5mg tab ORAL SCH ×3 (09:47→17:42)
[2017-01-18] MEDS: Heparin 5000 units/ml inj SUBQ SCH ×2 (09:51→21:15)
--- NOTE | 2017-01-18 10:09 | Cardiology Report ---
APPROVED REPORT EXAM: Two-dimensional and M-mode echocardiogram with Doppler and color Doppler. INDICATION SOB M-Mode DIMENSIONS IVSd1.2 (0.7-1.1cm)Left Atrium (MM)3.5 (1.6-4.0cm) LVDd4.4 (3.5-5.6cm)Aortic Root2.5 (2.0-3.7cm) PWd1.1 (0.7-1.1cm)Aortic Cusp Exc.1.7 (1.5-2.0cm) LVDs3.1 (2.5-4.0cm) PWs1.1 cm Technically difficult study due to poor acoustical windows. Normal left ventricular chamber size, systolic function and wall motion. Left ventricular ejection fraction estimated to be 60-65%. No evidence of left ventricular hypertrophy. No evidence of pericardial or pleural effusion. Right cardiac chamber sizes are within normal limits. Mild left atrial enlargement by 2D. Focal aortic valve sclerosis with adequate cusp excursion. Thickened mitral valve leaflets with normal excursion. Mild mitral annulus and aortic root calcification. Pulmonic valve is well visualized. Normal tricuspid valve structure. IVC is normal in size and collapsible with respiration. A color flow and spectral Doppler study was performed and revealed: No aortic regurgitation. No mitral regurgitation. Mitral diastolic velocities suggest reduced left ventricular relaxation c/w diastolic dysfunction grade 1. No tricuspid regurgitation. Pulmonic regurgitation present.
--- NOTE | 2017-01-18 11:09 | Internal Med Progress Note ---
Subjective Physician Name ReannaVentura Attending Physician Kennedy Ng MD Current Medications Medications (Trade) Dose Ordered Sig/Huma Route PRN Reason Start Time Stop Time Status Last Admin Dose Admin Acetaminophen (Tylenol) 650 mg Q4H PRN ORAL FEVER 01/16/17 02:30 02/13/17 18:29 01/17/17 16:11 Albuterol/ Ipratropium (Albuterol/ Ipratropium) 3 ml Q4H PRN HHN Shortness of Breath 01/16/17 02:30 01/19/17 18:29 Amlodipine Besylate (Norvasc) 2.5 mg DAILY ORAL 01/16/17 09:00 02/14/17 08:59 01/18/17 09:46 Aspirin (ASA) 81 mg DAILY ORAL 01/16/17 09:00 02/14/17 10:44 01/18/17 09:46 Bupropion HCl (Wellbutrin SR) 100 mg TWICE A DAY ORAL 01/16/17 09:00 02/14/17 08:59 01/17/17 17:11 Ceftriaxone Sodium 1 gm/ Dextrose 55 ml @ 110 mls/hr Q24H IVPB 01/16/17 21:00 01/22/17 20:59 01/17/17 20:46 Dextrose (Dextrose 50%) STAT PRN IV Hypoglycemia 01/16/17 18:30 02/13/17 18:29 Escitalopram Oxalate (Lexapro) 10 mg DAILY ORAL 01/16/17 09:00 02/14/17 08:59 01/18/17 09:46 Heparin Sodium (Porcine) (Heparin 5000 units/ml) 5,000 units EVERY 12 HOURS SUBQ 01/16/17 09:00 02/13/17 20:59 01/18/17 09:51 Iron Sucrose 100 mg/Sodium Chloride 60 ml @ 240 mls/hr BEDTIME IV 01/16/17 21:00 01/20/17 21:14 01/17/17 20:46 Lorazepam (Ativan 2mg/ml 1ml) 2 mg Q2H PRN IV For Anxiety 01/16/17 02:30 01/21/17 18:29 Lorazepam (Ativan) 0.5 mg THREE TIMES A DAY ORAL 01/16/17 09:00 01/22/17 08:59 01/18/17 09:47 Metronidazole 100 ml @ 100 mls/hr Q8HR IVPB 01/16/17 06:00 01/22/17 13:59 01/18/17 05:45 Morphine Sulfate (Morphine Sulfate) 4 mg Q4H PRN IVP Severe Pain (Pain Scale 7-10) 01/16/17 02:30 01/21/17 18:29 Ondansetron HCl (Zofran) 4 mg Q6H PRN IVP Nausea & Vomiting 01/16/17 06:30 02/13/17 18:29 Pantoprazole (Protonix) 40 mg DAILY ORAL 01/16/17 09:00 02/15/17 08:59 01/18/17 09:47 Polyethylene Glycol (Miralax) 17 gm DAILYPRN PRN ORAL Constipation 01/16/17 18:30 02/13/17 18:29 Sodium Chloride 1,000 ml @ 50 mls/hr Q20H IV 01/16/17 00:45 02/13/17 19:29 01/17/17 17:11 Tamsulosin HCl (Flomax) 0.4 mg BEDTIME ORAL 01/16/17 21:00 02/14/17 20:59 01/17/17 20:46 Zolpidem Tartrate (Ambien) 5 mg HSPRN PRN ORAL Insomnia 01/17/17 20:00 01/24/17 19:59 Allergies: Coded Allergies: No Known Allergies (Unverified , 01/14/17) Subjective 86 YO M admitted with aspiration pneumonia. Cover for Int Semaj-Dr Ng Objective Last Vital Signs Date Time Temp Pulse Resp B/P (MAP) Pulse Ox O2 Delivery O2 Flow Rate FiO2 01/18/17 09:46 94 144/87 01/18/17 08:00 98.0 20 93 01/18/17 07:23 Room Air 21 Laboratory Tests Test 01/18/17 03:00 01/18/17 05:00 Stool Occult Blood Positive (NEGATIVE) White Blood Count 8.9 K/UL (4.8-10.8) Red Blood Count 4.38 M/UL (4.70-6.10) L Hemoglobin 13.7 G/DL (14.2-18.0) L Hematocrit 39.7 % (42.0-52.0) L Mean Corpuscular Volume 91 FL (80-99) Mean Corpuscular Hemoglobin 31.3 PG (27.0-31.0) H Mean Corpuscular Hemoglobin Concent 34.6 G/DL (32.0-36.0) Red Cell Distribution Width 12.3 % (11.6-14.8) Platelet Count 311 K/UL (150-450) Mean Platelet Volume 5.6 FL (6.5-10.1) L Neutrophils (%) (Auto) 75.9 % (45.0-75.0) H Lymphocytes (%) (Auto) 13.1 % (20.0-45.0) L Monocytes (%) (Auto) 8.6 % (1.0-10.0) Eosinophils (%) (Auto) 1.9 % (0.0-3.0) Basophils (%) (Auto) 0.6 % (0.0-2.0) Sodium Level 138 MMOL/L (136-145) Potassium Level 4.0 MMOL/L (3.5-5.1) Chloride Level 104 MMOL/L (98-107) Carbon Dioxide Level 27 MMOL/L (21-32) Anion Gap 7 mmol/L (5-15) Blood Urea Nitrogen 13 mg/dL (7-18) Creatinine 1.3 MG/DL (0.55-1.30) Estimat Glomerular Filtration Rate mL/min (>60) Glucose Level 123 MG/DL (74-106) H Calcium Level 9.6 MG/DL (8.5-10.1) Total Bilirubin 0.5 MG/DL (0.2-1.0) Aspartate Amino Transf (AST/SGOT) 45 U/L (15-37) H Alanine Aminotransferase (ALT/SGPT) 32 U/L (12-78) Alkaline Phosphatase 96 U/L (46-116) Pro-B-Type Natriuretic Peptide 52 pg/mL (0-125) Total Protein 7.0 G/DL (6.4-8.2) Albumin 3.1 G/DL (3.4-5.0) L Globulin 3.9 g/dL Albumin/Globulin Ratio 0.8 (1.0-2.7) L Objective Objective General: No acute distress, awake and alert HEENT: NCAT, sclera anicteric, PERRL, EOMI. Neck: Supple, no significant jugular venous distention, Lungs: Good inspiratory effort, clear to auscultation bilaterally, no Wheeze or Rales. Heart: Regular rate and rhythm, Distant heart sound, normal S1/S2, no murmurs Abdomen: soft, nontender, nondistended. Normoactive bowel sounds. Obesity. / Rectal: Refused and deferred. Extremities: No Cyanosis , clubbing or edema. Neuro: A&O x 3, Able to move all extremities Skin: warm, no rashes Psych: Normal mood and affect Assessment/Plan Assessment/Plan Assessment/Plan Aspiration Pneumonia, Chest pain R/O ACS Iron Deficiency anemia CAD ASHD HTN JULIETA / ATN on CKD BPH Thickening of the stomach possible PUD Anxiety / Depression Plan: Abx: Rocephin and Flagyl Full code Heparin SQ monitor labs and cultures IV Iron F/U with Dr. Holder Recommendation: EGD in AM DC Planning in [place] Jan 18, 2017 11:09
[2017-01-18 12:00] VITALS: BP 157/93
--- NOTE | 2017-01-18 14:26 | Infectious Diseases Prog Note ---
Assessment/Plan Assessment/Plan Assessment: SOB- 2ry to RML and RLL PNA, CAP- ?aspiration - CXR: No acute process. -CT abd/p wo: Groundglass opacities and patchy consolidations in the right middle and lower lobe. Findings are concerning for pneumonia. Diverticulosis without evidence of acute diverticulitis. Moderately distended bladder with enlarged, heterogeneous prostate. Correlate for degree of bladder outlet obstruction. There is herniation of portions of the bladder via a right inguinal hernia. Small hiatal hernia. Apparent thickening of the stomach, poorly evaluated without p.o. contrast. True gastric thickening/mass not excludable. Multiple lesions in the kidneys, and which demonstrate increased density and may be hemorrhagic or pertinacious cyst. Contrast-enhanced exam or ultrasound would provide better assessment. Hepatic steatosis. Coronary artery disease. Trace pericardial effusion. Fever, SP leukocytosis improved JULIETA, improving- Nephro is following Kidney lesions Gastric thickening- ?mass/malignancy CAD HTN CKD BPH CHF Anxiety/Depression Plan: -Continue Ceftriaxone # 4 (abx d # -) and flagyl # 4 /5-7 will stop AB Rx in AM -01/14 SP Isra Dickinson x1 -f/u cx -plan for possible EGD -Monitor CBC/BMP, temperatures -aspiration precautions Subjective Constitutional: Denies: no symptoms, fever, chills, fatigue, anorexia, drenching sweats, other Allergies: Coded Allergies: No Known Allergies (Unverified , 01/14/17) Objective Vital Signs Last 24 Hour Vital Signs Date Time Temp Pulse Resp B/P (MAP) Pulse Ox O2 Delivery O2 Flow Rate FiO2 01/18/17 12:00 98.0 95 20 157/93 93 01/18/17 09:46 94 144/87 01/18/17 08:00 98.0 94 20 144/87 93 01/18/17 07:23 94 18 Room Air 21 01/18/17 04:01 Room Air 01/18/17 04:00 98.4 89 19 127/89 93 01/18/17 00:01 Room Air 01/18/17 00:00 97.8 80 18 161/87 94 01/17/17 20:01 Room Air 01/17/17 20:00 97.8 77 18 147/80 94 01/17/17 19:50 86 16 Room Air 21 01/17/17 17:10 99.1 01/17/17 15:38 99.1 76 20 145/80 99 Height (Feet): 5 Height (Inches): 5.00 Weight (Pounds): 150 HEENT: anicteric Respiratory/Chest: no respiratory distress Cardiovascular: no gallop/murmur Abdomen: no organomegaly Laboratory Tests Test 01/18/17 03:00 01/18/17 05:00 Stool Occult Blood Positive (NEGATIVE) White Blood Count 8.9 K/UL (4.8-10.8) Red Blood Count 4.38 M/UL (4.70-6.10) L Hemoglobin 13.7 G/DL (14.2-18.0) L Hematocrit 39.7 % (42.0-52.0) L Mean Corpuscular Volume 91 FL (80-99) Mean Corpuscular Hemoglobin 31.3 PG (27.0-31.0) H Mean Corpuscular Hemoglobin Concent 34.6 G/DL (32.0-36.0) Red Cell Distribution Width 12.3 % (11.6-14.8) Platelet Count 311 K/UL (150-450) Mean Platelet Volume 5.6 FL (6.5-10.1) L Neutrophils (%) (Auto) 75.9 % (45.0-75.0) H Lymphocytes (%) (Auto) 13.1 % (20.0-45.0) L Monocytes (%) (Auto) 8.6 % (1.0-10.0) Eosinophils (%) (Auto) 1.9 % (0.0-3.0) Basophils (%) (Auto) 0.6 % (0.0-2.0) Sodium Level 138 MMOL/L (136-145) Potassium Level 4.0 MMOL/L (3.5-5.1) Chloride Level 104 MMOL/L (98-107) Carbon Dioxide Level 27 MMOL/L (21-32) Anion Gap 7 mmol/L (5-15) Blood Urea Nitrogen 13 mg/dL (7-18) Creatinine 1.3 MG/DL (0.55-1.30) Estimat Glomerular Filtration Rate mL/min (>60) Glucose Level 123 MG/DL (74-106) H Calcium Level 9.6 MG/DL (8.5-10.1) Total Bilirubin 0.5 MG/DL (0.2-1.0) Aspartate Amino Transf (AST/SGOT) 45 U/L (15-37) H Alanine Aminotransferase (ALT/SGPT) 32 U/L (12-78) Alkaline Phosphatase 96 U/L (46-116) Pro-B-Type Natriuretic Peptide 52 pg/mL (0-125) Total Protein 7.0 G/DL (6.4-8.2) Albumin 3.1 G/DL (3.4-5.0) L Globulin 3.9 g/dL Albumin/Globulin Ratio 0.8 (1.0-2.7) L Current Medications Medications (Trade) Dose Ordered Sig/Huma Route PRN Reason Start Time Stop Time Status Last Admin Dose Admin Acetaminophen (Tylenol) 650 mg Q4H PRN ORAL FEVER 01/16/17 02:30 02/13/17 18:29 01/18/17 14:15 Albuterol/ Ipratropium (Albuterol/ Ipratropium) 3 ml Q4H PRN HHN Shortness of Breath 01/16/17 02:30 01/19/17 18:29 Amlodipine Besylate (Norvasc) 2.5 mg DAILY ORAL 01/16/17 09:00 02/14/17 08:59 01/18/17 09:46 Aspirin (ASA) 81 mg DAILY ORAL 01/16/17 09:00 02/14/17 10:44 01/18/17 09:46 Bupropion HCl (Wellbutrin SR) 100 mg TWICE A DAY ORAL 01/16/17 09:00 02/14/17 08:59 01/17/17 17:11 Ceftriaxone Sodium 1 gm/ Dextrose 55 ml @ 110 mls/hr Q24H IVPB 01/16/17 21:00 01/22/17 20:59 01/17/17 20:46 Dextrose (Dextrose 50%) STAT PRN IV Hypoglycemia 01/16/17 18:30 02/13/17 18:29 Escitalopram Oxalate (Lexapro) 10 mg DAILY ORAL 01/16/17 09:00 02/14/17 08:59 01/18/17 09:46 Heparin Sodium (Porcine) (Heparin 5000 units/ml) 5,000 units EVERY 12 HOURS SUBQ 01/16/17 09:00 02/13/17 20:59 01/18/17 09:51 Iron Sucrose 100 mg/Sodium Chloride 60 ml @ 240 mls/hr BEDTIME IV 01/16/17 21:00 01/20/17 21:14 01/17/17 20:46 Lorazepam (Ativan 2mg/ml 1ml) 2 mg Q2H PRN IV For Anxiety 01/16/17 02:30 01/21/17 18:29 Lorazepam (Ativan) 0.5 mg THREE TIMES A DAY ORAL 01/16/17 09:00 01/22/17 08:59 01/18/17 14:14 Metronidazole 100 ml @ 100 mls/hr Q8HR IVPB 01/16/17 06:00 01/22/17 13:59 01/18/17 14:15 Morphine Sulfate (Morphine Sulfate) 4 mg Q4H PRN IVP Severe Pain (Pain Scale 7-10) 01/16/17 02:30 01/21/17 18:29 Ondansetron HCl (Zofran) 4 mg Q6H PRN IVP Nausea & Vomiting 01/16/17 06:30 02/13/17 18:29 Pantoprazole (Protonix) 40 mg DAILY ORAL 01/16/17 09:00 02/15/17 08:59 01/18/17 09:47 Polyethylene Glycol (Miralax) 17 gm DAILYPRN PRN ORAL Constipation 01/16/17 18:30 02/13/17 18:29 Sodium Chloride 1,000 ml @ 50 mls/hr Q20H IV 01/16/17 00:45 02/13/17 19:29 01/17/17 17:11 Tamsulosin HCl (Flomax) 0.4 mg BEDTIME ORAL 01/16/17 21:00 02/14/17 20:59 01/17/17 20:46 Zolpidem Tartrate (Ambien) 5 mg HSPRN PRN ORAL Insomnia 01/17/17 20:00 01/24/17 19:59 SHWETA DOZIER M.D. Jan 18, 2017 14:26
--- NOTE | 2017-01-18 15:01 | Pulmonology Progress Note ---
Assessment/Plan Problems: (1) CHF (congestive heart failure) (2) CAD (coronary artery disease) (3) Pneumonia Assessment/Plan c.o abdominal pain refused EGD wbc decreasing, afebrile improving all noted ID f/u med/surg cxr improved all notes reviewed Subjective ROS Limited/Unobtainable: No Interval Events: no more sob, c/o abdominal pain Allergies: Coded Allergies: No Known Allergies (Unverified , 01/14/17) Objective Last 24 Hour Vital Signs Date Time Temp Pulse Resp B/P (MAP) Pulse Ox O2 Delivery O2 Flow Rate FiO2 01/18/17 12:00 98.0 95 20 157/93 93 01/18/17 09:46 94 144/87 01/18/17 08:00 98.0 94 20 144/87 93 01/18/17 07:23 94 18 Room Air 21 01/18/17 04:01 Room Air 01/18/17 04:00 98.4 89 19 127/89 93 01/18/17 00:01 Room Air 01/18/17 00:00 97.8 80 18 161/87 94 01/17/17 20:01 Room Air 01/17/17 20:00 97.8 77 18 147/80 94 01/17/17 19:50 86 16 Room Air 21 01/17/17 17:10 99.1 01/17/17 15:38 99.1 76 20 145/80 99 Intake and Output 01/18/17 01/19/17 19:00 07:00 Intake Total 250 ml Output Total 350 ml Balance -100 ml Intake Oral 250 ml Output Urine Total 350 ml Objective General Appearance: WD/WN Lines, tubes and drains: peripheral, HEENT: normocephalic, atraumatic Neck: non-tender, normal alignment Respiratory/Chest: chest wall non-tender, lungs clear, normal breath sounds Breasts: no masses Cardiovascular/Chest: normal rate Abdomen: normal bowel sounds Extremities: normal range of motion Laboratory Tests 01/18/17 03:00: Stool Occult Blood Positive 01/18/17 05:00: White Blood Count 8.9, Red Blood Count 4.38L, Hemoglobin 13.7L, Hematocrit 39.7L , Mean Corpuscular Volume 91, Mean Corpuscular Hemoglobin 31.3H, Mean Corpuscular Hemoglobin Concent 34.6, Red Cell Distribution Width 12.3, Platelet Count 311, Mean Platelet Volume 5.6L, Neutrophils (%) (Auto) 75.9H, Lymphocytes (%) (Auto) 13.1L, Monocytes (%) (Auto) 8.6, Eosinophils (%) (Auto) 1.9, Basophils (%) (Auto) 0.6, Sodium Level 138, Potassium Level 4.0, Chloride Level 104, Carbon Dioxide Level 27, Anion Gap 7, Blood Urea Nitrogen 13, Creatinine 1.3, Estimat Glomerular Filtration Rate , Glucose Level 123H, Calcium Level 9.6 , Total Bilirubin 0.5, Aspartate Amino Transf (AST/SGOT) 45H, Alanine Aminotransferase (ALT/SGPT) 32, Alkaline Phosphatase 96, Pro-B-Type Natriuretic Peptide 52, Total Protein 7.0, Albumin 3.1L, Globulin 3.9, Albumin/Globulin Ratio 0.8L Current Medications Medications (Trade) Dose Ordered Sig/Huma Route PRN Reason Start Time Stop Time Status Last Admin Dose Admin Acetaminophen (Tylenol) 650 mg Q4H PRN ORAL FEVER 01/16/17 02:30 02/13/17 18:29 01/18/17 14:15 Albuterol/ Ipratropium (Albuterol/ Ipratropium) 3 ml Q4H PRN HHN Shortness of Breath 01/16/17 02:30 01/19/17 18:29 Amlodipine Besylate (Norvasc) 2.5 mg DAILY ORAL 01/16/17 09:00 02/14/17 08:59 01/18/17 09:46 Aspirin (ASA) 81 mg DAILY ORAL 01/16/17 09:00 02/14/17 10:44 01/18/17 09:46 Bupropion HCl (Wellbutrin SR) 100 mg TWICE A DAY ORAL 01/16/17 09:00 02/14/17 08:59 01/17/17 17:11 Ceftriaxone Sodium 1 gm/ Dextrose 55 ml @ 110 mls/hr Q24H IVPB 01/16/17 21:00 01/22/17 20:59 01/17/17 20:46 Dextrose (Dextrose 50%) STAT PRN IV Hypoglycemia 01/16/17 18:30 02/13/17 18:29 Escitalopram Oxalate (Lexapro) 10 mg DAILY ORAL 01/16/17 09:00 02/14/17 08:59 01/18/17 09:46 Heparin Sodium (Porcine) (Heparin 5000 units/ml) 5,000 units EVERY 12 HOURS SUBQ 01/16/17 09:00 02/13/17 20:59 01/18/17 09:51 Iron Sucrose 100 mg/Sodium Chloride 60 ml @ 240 mls/hr BEDTIME IV 01/16/17 21:00 01/20/17 21:14 01/17/17 20:46 Lorazepam (Ativan 2mg/ml 1ml) 2 mg Q2H PRN IV For Anxiety 01/16/17 02:30 01/21/17 18:29 Lorazepam (Ativan) 0.5 mg THREE TIMES A DAY ORAL 01/16/17 09:00 01/22/17 08:59 01/18/17 14:14 Metronidazole 100 ml @ 100 mls/hr Q8HR IVPB 01/16/17 06:00 01/22/17 13:59 01/18/17 14:15 Morphine Sulfate (Morphine Sulfate) 4 mg Q4H PRN IVP Severe Pain (Pain Scale 7-10) 01/16/17 02:30 01/21/17 18:29 Ondansetron HCl (Zofran) 4 mg Q6H PRN IVP Nausea & Vomiting 01/16/17 06:30 02/13/17 18:29 Pantoprazole (Protonix) 40 mg DAILY ORAL 01/16/17 09:00 02/15/17 08:59 01/18/17 09:47 Polyethylene Glycol (Miralax) 17 gm DAILYPRN PRN ORAL Constipation 01/16/17 18:30 02/13/17 18:29 Sodium Chloride 1,000 ml @ 50 mls/hr Q20H IV 01/16/17 00:45 02/13/17 19:29 01/17/17 17:11 Tamsulosin HCl (Flomax) 0.4 mg BEDTIME ORAL 01/16/17 21:00 02/14/17 20:59 01/17/17 20:46 Zolpidem Tartrate (Ambien) 5 mg HSPRN PRN ORAL Insomnia 01/17/17 20:00 01/24/17 19:59 ARYAN GRIFFIN Jan 18, 2017 15:01
[2017-01-18 16:00] VITALS: BP 134/81
[2017-01-18 20:00] VITALS: BP 137/82
[2017-01-18] MEDS: cefTRIAXone 1 GM in D5W 55 ML IVPB SCH (21:00)
[2017-01-18] MEDS: Iron Sucrose 100 MG in NS 55 ML IV SCH (21:13)
[2017-01-18] MEDS: Tamsulosin 0.4mg cap ORAL SCH (21:14)
[2017-01-19 00:38] VITALS: BP 132/78
[2017-01-19 04:44] VITALS: BP 148/88
[2017-01-19 06:39] LABS: BASOPHILS % (AUTO) 0.7 % (0.0-2.0); EOSINOPHILS % (AUTO) 1.7 % (0.0-3.0); LYMPHOCYTES % (AUTO) 8.9 % (20.0-45.0); MEAN CORPUSCULAR HEMOGLOBIN 32.5 PG (27.0-31.0); MEAN CORPUSCULAR HGB CONC 35.9 G/DL (32.0-36.0); MEAN CORPUSCULAR VOLUME 91 FL (80-99); MEAN PLATELET VOLUME 5.2 FL (6.5-10.1); MONOCYTES % (AUTO) 7.6 % (1.0-10.0); NEUTROPHILS % (AUTO) 81.1 % (45.0-75.0); PLATELET COUNT 294 K/UL (150-450); RED BLOOD COUNT 4.03 M/UL (4.70-6.10); RED CELL DISTRIBUTION WIDTH 12.2 % (11.6-14.8); WHITE BLOOD COUNT 8.9 K/UL (4.8-10.8)
[2017-01-19 06:59] LABS: ANION GAP 8 mmol/L (5-15); CALCIUM 9.2 MG/DL (8.5-10.1); CARBON DIOXIDE 25 MMOL/L (21-32); CHLORIDE 104 MMOL/L (98-107); CREATININE 1.3 MG/DL (0.55-1.30); POTASSIUM 3.9 MMOL/L (3.5-5.1); SODIUM 137 MMOL/L (136-145)
[2017-01-19 08:00] VITALS: BP 144/86
[2017-01-19] MEDS: Aspirin Baby 81mg ORAL SCH (08:23)
[2017-01-19] MEDS: LORazepam 0.5mg tab ORAL SCH ×2 (08:24→13:36)
[2017-01-19] MEDS: Heparin 5000 units/ml inj SUBQ SCH (08:26)
[2017-01-19] MEDS: BuPROPion SR 100mg tab ORAL SCH (09:00)
--- NOTE | 2017-01-19 10:00 | Nephrology Progress Note ---
Assessment/Plan Assessment 1. Acute renal failure, 2. Pneumonia. 3. Hypertension. 4. Hypoalbuminemia. Plan plan to continue ivf monitoring renal function avoid NSAID replace electrolyte as need it Subjective Constitutional: Reports: no symptoms HEENT: Reports: no symptoms Genitourinary: Reports: no symptoms Neurologic/Psychiatric: Reports: no symptoms Subjective no complaints Objective Objective Last 24 Hour Vital Signs Date Time Temp Pulse Resp B/P (MAP) Pulse Ox O2 Delivery O2 Flow Rate FiO2 01/19/17 08:24 87 144/86 01/19/17 08:00 97.9 87 19 144/86 92 Room Air 01/19/17 04:44 98.2 96 19 148/88 96 01/19/17 00:38 97.8 70 18 132/78 95 01/18/17 20:00 97.9 79 19 137/82 95 01/18/17 19:10 88 16 Room Air 21 01/18/17 16:00 97.5 85 18 134/81 98 01/18/17 15:10 97.5 01/18/17 12:00 98.0 95 20 157/93 93 Laboratory Tests 01/19/17 05:25: White Blood Count 8.9, Red Blood Count 4.03L, Hemoglobin 13.1L, Hematocrit 36.5L , Mean Corpuscular Volume 91, Mean Corpuscular Hemoglobin 32.5H, Mean Corpuscular Hemoglobin Concent 35.9, Red Cell Distribution Width 12.2, Platelet Count 294, Mean Platelet Volume 5.2L, Neutrophils (%) (Auto) 81.1H, Lymphocytes (%) (Auto) 8.9L, Monocytes (%) (Auto) 7.6, Eosinophils (%) (Auto) 1.7, Basophils (%) (Auto) 0.7, Sodium Level 137, Potassium Level 3.9, Chloride Level 104, Carbon Dioxide Level 25, Anion Gap 8, Blood Urea Nitrogen 10, Creatinine 1.3, Estimat Glomerular Filtration Rate , Glucose Level 128H, Calcium Level 9.2 Height (Feet): 5 Height (Inches): 5.00 Weight (Pounds): 150 Objective HEAD AND NECK: No JVP. No LAD. No thyromegaly. Extraocular movement intact. Pupils are reactive to light and accommodation. LUNGS: Clear to auscultation. CARDIAC: Regular rate and rhythm. S1, S2 normal. No rub. ABDOMEN: Soft, nontender, and nondistended. EXTREMITIES: No edema. No clubbing. No cyanosis. KATIE NEWSOME Jan 19, 2017 10:00
[2017-01-19 12:00] VITALS: BP 143/94
--- NOTE | 2017-01-19 13:07 | GI Progress Note ---
Assessment/Plan Problems: (1) Gastric wall thickening ICD Codes: K31.89 - Other diseases of stomach and duodenum SNOMED: 16368384 (2) Anemia ICD Codes: D64.9 - Anemia, unspecified SNOMED: 942221185 (3) Hiatal hernia ICD Codes: K44.9 - Diaphragmatic hernia without obstruction or gangrene SNOMED: 77314354 Status: stable Status Narrative Discussed with Dr. Holder. Assessment/Plan EGD cancelled, patient had SOB okay for DC per GI standpoint bowel regime >> colace + miralax pain mgmt ppi fu labs Subjective Gastrointestinal/Abdominal: Reports: no symptoms Objective Last 24 Hour Vital Signs Date Time Temp Pulse Resp B/P (MAP) Pulse Ox O2 Delivery O2 Flow Rate FiO2 01/19/17 12:00 97.9 108 20 143/94 96 Room Air 01/19/17 09:40 98 22 Room Air 21 01/19/17 08:24 87 144/86 01/19/17 08:00 97.9 87 19 144/86 92 Room Air 01/19/17 04:44 98.2 96 19 148/88 96 01/19/17 00:38 97.8 70 18 132/78 95 01/18/17 20:00 97.9 79 19 137/82 95 01/18/17 19:10 88 16 Room Air 21 01/18/17 16:00 97.5 85 18 134/81 98 01/18/17 15:10 97.5 Laboratory Tests Test 01/19/17 05:25 White Blood Count 8.9 K/UL (4.8-10.8) Red Blood Count 4.03 M/UL (4.70-6.10) L Hemoglobin 13.1 G/DL (14.2-18.0) L Hematocrit 36.5 % (42.0-52.0) L Mean Corpuscular Volume 91 FL (80-99) Mean Corpuscular Hemoglobin 32.5 PG (27.0-31.0) H Mean Corpuscular Hemoglobin Concent 35.9 G/DL (32.0-36.0) Red Cell Distribution Width 12.2 % (11.6-14.8) Platelet Count 294 K/UL (150-450) Mean Platelet Volume 5.2 FL (6.5-10.1) L Neutrophils (%) (Auto) 81.1 % (45.0-75.0) H Lymphocytes (%) (Auto) 8.9 % (20.0-45.0) L Monocytes (%) (Auto) 7.6 % (1.0-10.0) Eosinophils (%) (Auto) 1.7 % (0.0-3.0) Basophils (%) (Auto) 0.7 % (0.0-2.0) Sodium Level 137 MMOL/L (136-145) Potassium Level 3.9 MMOL/L (3.5-5.1) Chloride Level 104 MMOL/L (98-107) Carbon Dioxide Level 25 MMOL/L (21-32) Anion Gap 8 mmol/L (5-15) Blood Urea Nitrogen 10 mg/dL (7-18) Creatinine 1.3 MG/DL (0.55-1.30) Estimat Glomerular Filtration Rate mL/min (>60) Glucose Level 128 MG/DL (74-106) H Calcium Level 9.2 MG/DL (8.5-10.1) Height (Feet): 5 Height (Inches): 5.00 Weight (Pounds): 150 General Appearance: WD/WN, no apparent distress, alert Cardiovascular: normal rate Respiratory/Chest: normal breath sounds, no respiratory distress Abdominal Exam: normal bowel sounds, non tender, soft Extremities: normal range of motion, non-tender Zahra Rush N.P. Jan 19, 2017 13:07
--- NOTE | 2017-01-19 15:10 | Infectious Diseases Prog Note ---
Assessment/Plan Assessment/Plan Assessment: SOB- 2ry to RML and RLL PNA, CAP- ?aspiration - CXR: No acute process. -CT abd/p wo: Groundglass opacities and patchy consolidations in the right middle and lower lobe. Findings are concerning for pneumonia. Diverticulosis without evidence of acute diverticulitis. Moderately distended bladder with enlarged, heterogeneous prostate. Correlate for degree of bladder outlet obstruction. There is herniation of portions of the bladder via a right inguinal hernia. Small hiatal hernia. Apparent thickening of the stomach, poorly evaluated without p.o. contrast. True gastric thickening/mass not excludable. Multiple lesions in the kidneys, and which demonstrate increased density and may be hemorrhagic or pertinacious cyst. Contrast-enhanced exam or ultrasound would provide better assessment. Hepatic steatosis. Coronary artery disease. Trace pericardial effusion. Fever, SP leukocytosis improved JULIETA, improving- Nephro is following Kidney lesions Gastric thickening- ?mass/malignancy CAD HTN CKD BPH CHF Anxiety/Depression Plan: dc Ceftriaxone # 5 (abx d # 6 /-7) and flagyl # 5 /5-7 and monitor pt off of AB Rx -01/14 SP GarretoChristinsyn x1 -EGD -Monitor CBC/BMP, temperatures -aspiration precautions Subjective Constitutional: Denies: no symptoms, fever, chills, fatigue, anorexia, drenching sweats, other Allergies: Coded Allergies: No Known Allergies (Unverified , 01/14/17) Objective Vital Signs Last 24 Hour Vital Signs Date Time Temp Pulse Resp B/P (MAP) Pulse Ox O2 Delivery O2 Flow Rate FiO2 01/19/17 12:00 97.9 108 20 143/94 96 Room Air 01/19/17 09:40 98 22 Room Air 01/19/17 08:24 87 144/86 01/19/17 08:00 97.9 87 19 144/86 92 Room Air 01/19/17 04:44 98.2 96 19 148/88 96 01/19/17 00:38 97.8 70 18 132/78 95 01/18/17 20:00 97.9 79 19 137/82 95 01/18/17 19:10 88 16 Room Air 21 01/18/17 16:00 97.5 85 18 134/81 98 01/18/17 15:10 97.5 Height (Feet): 5 Height (Inches): 5.00 Weight (Pounds): 150 HEENT: anicteric Respiratory/Chest: normal breath sounds Cardiovascular: regular rhythm Abdomen: no mass Laboratory Tests Test 01/19/17 05:25 White Blood Count 8.9 K/UL (4.8-10.8) Red Blood Count 4.03 M/UL (4.70-6.10) L Hemoglobin 13.1 G/DL (14.2-18.0) L Hematocrit 36.5 % (42.0-52.0) L Mean Corpuscular Volume 91 FL (80-99) Mean Corpuscular Hemoglobin 32.5 PG (27.0-31.0) H Mean Corpuscular Hemoglobin Concent 35.9 G/DL (32.0-36.0) Red Cell Distribution Width 12.2 % (11.6-14.8) Platelet Count 294 K/UL (150-450) Mean Platelet Volume 5.2 FL (6.5-10.1) L Neutrophils (%) (Auto) 81.1 % (45.0-75.0) H Lymphocytes (%) (Auto) 8.9 % (20.0-45.0) L Monocytes (%) (Auto) 7.6 % (1.0-10.0) Eosinophils (%) (Auto) 1.7 % (0.0-3.0) Basophils (%) (Auto) 0.7 % (0.0-2.0) Sodium Level 137 MMOL/L (136-145) Potassium Level 3.9 MMOL/L (3.5-5.1) Chloride Level 104 MMOL/L (98-107) Carbon Dioxide Level 25 MMOL/L (21-32) Anion Gap 8 mmol/L (5-15) Blood Urea Nitrogen 10 mg/dL (7-18) Creatinine 1.3 MG/DL (0.55-1.30) Estimat Glomerular Filtration Rate mL/min (>60) Glucose Level 128 MG/DL (74-106) H Calcium Level 9.2 MG/DL (8.5-10.1) Current Medications Medications (Trade) Dose Ordered Sig/Huma Route PRN Reason Start Time Stop Time Status Last Admin Dose Admin Acetaminophen (Tylenol) 650 mg Q4H PRN ORAL FEVER 01/16/17 02:30 02/13/17 18:29 01/18/17 14:15 Albuterol/ Ipratropium (Albuterol/ Ipratropium) 3 ml Q4H PRN HHN Shortness of Breath 01/16/17 02:30 01/19/17 18:29 Amlodipine Besylate (Norvasc) 2.5 mg DAILY ORAL 01/16/17 09:00 02/14/17 08:59 01/19/17 08:24 Aspirin (ASA) 81 mg DAILY ORAL 01/16/17 09:00 02/14/17 10:44 01/19/17 08:23 Bupropion HCl (Wellbutrin SR) 100 mg TWICE A DAY ORAL 01/16/17 09:00 02/14/17 08:59 01/17/17 17:11 Ceftriaxone Sodium 1 gm/ Dextrose 55 ml @ 110 mls/hr Q24H IVPB 01/16/17 21:00 01/22/17 20:59 01/18/17 21:00 Dextrose (Dextrose 50%) STAT PRN IV Hypoglycemia 01/16/17 18:30 02/13/17 18:29 Escitalopram Oxalate (Lexapro) 10 mg DAILY ORAL 01/16/17 09:00 02/14/17 08:59 01/19/17 08:24 Heparin Sodium (Porcine) (Heparin 5000 units/ml) 5,000 units EVERY 12 HOURS SUBQ 01/16/17 09:00 02/13/17 20:59 01/19/17 08:26 Iron Sucrose 100 mg/Sodium Chloride 60 ml @ 240 mls/hr BEDTIME IV 01/16/17 21:00 01/20/17 21:14 01/18/17 21:13 Lorazepam (Ativan 2mg/ml 1ml) 2 mg Q2H PRN IV For Anxiety 01/16/17 02:30 01/21/17 18:29 01/19/17 04:43 Lorazepam (Ativan) 0.5 mg THREE TIMES A DAY ORAL 01/16/17 09:00 01/22/17 08:59 01/19/17 13:36 Metronidazole 100 ml @ 100 mls/hr Q8HR IVPB 01/16/17 06:00 01/22/17 13:59 01/19/17 13:37 Morphine Sulfate (Morphine Sulfate) 4 mg Q4H PRN IVP Severe Pain (Pain Scale 7-10) 01/16/17 02:30 01/21/17 18:29 Ondansetron HCl (Zofran) 4 mg Q6H PRN IVP Nausea & Vomiting 01/16/17 06:30 02/13/17 18:29 Pantoprazole (Protonix) 40 mg DAILY ORAL 01/16/17 09:00 02/15/17 08:59 01/19/17 08:23 Polyethylene Glycol (Miralax) 17 gm DAILYPRN PRN ORAL Constipation 01/16/17 18:30 02/13/17 18:29 Tamsulosin HCl (Flomax) 0.4 mg BEDTIME ORAL 01/16/17 21:00 02/14/17 20:59 01/18/17 21:14 Zolpidem Tartrate (Ambien) 5 mg HSPRN PRN ORAL Insomnia 01/17/17 20:00 01/24/17 19:59 SHWETA DOZIER M.D. Jan 19, 2017 15:10
--- NOTE | 2017-01-19 17:21 | Pulmonology Progress Note ---
Assessment/Plan Problems: (1) CHF (congestive heart failure) (2) CAD (coronary artery disease) (3) Pneumonia Assessment/Plan feeling better wbc decreasing, afebrile improving all noted dc home all notes reviewed Subjective ROS Limited/Unobtainable: No Constitutional: Reports: no symptoms HEENT: Repors: no symptoms Allergies: Coded Allergies: No Known Allergies (Unverified , 01/14/17) Objective Last 24 Hour Vital Signs Date Time Temp Pulse Resp B/P (MAP) Pulse Ox O2 Delivery O2 Flow Rate FiO2 01/19/17 12:00 97.9 108 20 143/94 96 Room Air 01/19/17 09:40 98 22 Room Air 21 01/19/17 08:24 87 144/86 01/19/17 08:00 97.9 87 19 144/86 92 Room Air 01/19/17 04:44 98.2 96 19 148/88 96 01/19/17 00:38 97.8 70 18 132/78 95 01/18/17 20:00 97.9 79 19 137/82 95 01/18/17 19:10 88 16 Room Air 21 Intake and Output 01/19/17 01/20/17 19:00 07:00 Intake Total 240 ml Balance 240 ml Intake Oral 240 ml Objective General Appearance: WD/WN Lines, tubes and drains: peripheral, HEENT: normocephalic, atraumatic Neck: non-tender, normal alignment Respiratory/Chest: chest wall non-tender, lungs clear, normal breath sounds Breasts: no masses Cardiovascular/Chest: normal rate Abdomen: normal bowel sounds Extremities: normal range of motion Laboratory Tests 01/19/17 05:25: White Blood Count 8.9, Red Blood Count 4.03L, Hemoglobin 13.1L, Hematocrit 36.5L , Mean Corpuscular Volume 91, Mean Corpuscular Hemoglobin 32.5H, Mean Corpuscular Hemoglobin Concent 35.9, Red Cell Distribution Width 12.2, Platelet Count 294, Mean Platelet Volume 5.2L, Neutrophils (%) (Auto) 81.1H, Lymphocytes (%) (Auto) 8.9L, Monocytes (%) (Auto) 7.6, Eosinophils (%) (Auto) 1.7, Basophils (%) (Auto) 0.7, Sodium Level 137, Potassium Level 3.9, Chloride Level 104, Carbon Dioxide Level 25, Anion Gap 8, Blood Urea Nitrogen 10, Creatinine 1.3, Estimat Glomerular Filtration Rate , Glucose Level 128H, Calcium Level 9.2 ARYAN GRIFFIN Jan 19, 2017 17:21
--- NOTE | 2017-01-21 11:01 | Diagnostic Imaging Report ---
APPROVED REPORT CPT Code: 16722 Present Symptoms Lower Extremity Pain: BILATERAL LOWER EXTREMITY VENOUS DUPLEX: Imaging reveals a patent deep venous system bilaterally. There is no evidence of thrombus within the femoral, popliteal or tibial segments. The greater saphenous veins are also within normal limits. Doppler indicates normal spontaneous flow within these segments.
--- NOTE | 2017-01-21 11:02 | Diagnostic Imaging Report ---
Indications: DYSPHAGIA Technique: Patient ingested multiple substances under the supervision of speech pathology. Video fluoroscopic recording performed. Total fluoroscopy time when 88 seconds. Total dose area product 0.51915 mGycm2 Comparison: none Findings: Parmjit aspiration of thin liquid barium is demonstrated on initial swallow, supraglottic laryngeal penetration on subsequent swallows. There is delay of initiation of segmentation and initial pooling in the vallecula and piriform sinuses. With ingestion of nectar thick liquid barium and barium puree, no significant aspiration or penetration demonstrated. Early pooling with barium-soaked solid, no aspiration or penetration. Impression: Positive aspiration and penetration of thin liquid barium. Please refer to speech pathology report for more detailed analysis
--- NOTE | 2017-01-21 11:04 | Cardiology Report ---
APPROVED REPORT EKG Measurement Heart [id number] Normal sinus rhythm Right bundle branch block Abnormal ECG
--- NOTE | 2017-01-21 14:58 | Discharge Summary ---
Discharge Summary Hospital Course Date of Admission Jan 14, 2017 at 16:08 Date of Discharge Jan 19, 2017 at 16:00 Admitting Diagnosis PNEUMONIA HPI Be England is a 86 year old male who was admitted on Jan 14, 2017 at 16:08 for Pneumonia Hospital Course [id number] Discharge Discharge Disposition Patient was discharged to Home (01) Discharge Diagnoses: Janet Watts NP Jan 21, 2017 14:58
--- NOTE | 2017-01-22 02:15 | Discharge Summary 2 SIG ---
DATE OF ADMISSION: 01/14/2017 DATE OF DISCHARGE: 01/19/2017 ATTENDING PHYSICIAN: Kennedy Ng M.D. CONSULTANTS: 1. Nestor March M.D. 2. Gagandeep Alford M.D. 3. Lucy Gordon M.D. 4. Jono Thorpe M.D. 5. Ollie Holder M.D. BRIEF HOSPITAL COURSE: The patient is an 86-year-old [place] gentleman with medical history significant for gastric as well as duodenal ulcer, history of hiatal hernia, depression, anxiety, prior history of colitis over 20 years ago, history of left lung collapse, status post surgery, appendectomy, BPH, status post TURP, and hypertension, presented to the hospital complaining of difficulty breathing and shortness of breath as well as chest pain. He is [place]. Prior to travel, he was in a normal state of health and while at the plane, developed shortness of breath and chest discomfort. It has gotten progressively worse and he presented to the hospital as there was exertional angina with numbness and tingling of the left arm. On evaluation at ED, he was noted to be febrile, temperature was 101. Blood work showed WBC of 19. Creatinine was 1.7. Initial troponin was negative. He had a chest x-ray done that showed cardiomegaly without any evident infiltrate. He had an EKG that showed normal sinus rhythm with right bundle-branch block and no acute ST to T-wave changes. CT of the abdomen and pelvis was done and showed ground-glass opacities and patchy consolidation in the right middle and lower lobe concerning for pneumonia and evidence of diverticulosis without diverticulitis. There was apparent thickening of the stomach, which was poorly evaluated, recommended endoscopy. Kidneys showed multiple lesions with increased density. He underwent kidney evaluation. Random urine sodium was 117. Creatinine was 1.7. The patient has acute renal failure and was given IV hydration. Renal ultrasound done showed a fullness and bilateral renal pelvis. No evident renal calculi. No ureteral dilatation. Renal function improved. He was started on cefepime, which was eventually transitioned to ceftriaxone. He was given Flagyl. The patient's shortness of breath is secondary to pneumonia, possible community-acquired pneumonia, possible aspiration pneumonia. He had video swallow evaluation done that was positive for aspiration and penetration of thin liquid barium. He completed five days of IV ceftriaxone and Flagyl and was monitored off antibiotic therapy as leukocytosis was improving. Blood cultures did not isolate any growth after five days. He was planned to undergo EGD, however, procedure was canceled. He was given bowel regimen consisting of Colace and MiraLAX and was given proton pump inhibitor, Protonix daily. He defervesced and WBC improved. He was resumed diet and was placed on aspiration precautions. He was eventually cleared for discharge home. Follow up with PMD. FINAL DIAGNOSES: 1. Aspiration pneumonia. 2. Acute kidney injury secondary to acute tubular necrosis on chronic kidney disease. 3. Coronary artery disease with angina. 4. Iron deficiency anemia. 5. Atherosclerotic heart disease. 6. Hypertension. 7. Anxiety/depression. 8. Thickening of the stomach, possible peptic ulcer disease. 9. Benign prostatic hypertrophy. 10. Hiatal hernia. 11. Iron deficiency anemia. 12. Hypoalbuminemia. DISPOSITION: The patient was discharged home. DISCHARGE MEDICATIONS: Refer to medication list. DISCHARGE INSTRUCTIONS: Follow up with PMD upon return to [place]. Nestor March M.D. I have been assigned to dictate discharge summary on this account and I was not involved in the patient's management. Janet Watts N.P. DR: ISACC JOB#: [id number] CC: [facility]
== END 2017-01-19 16:00 | disposition home or self-care (01) | DRG 177 ==
LOC: EDBD 14:09 → EMR 16:00 → 2E 16:08 → EDBEDREQ 16:50 → 2E 20:35 → 3E 01-15
DX: J69.0 Pneumonitis due to inhalation of food and vomit (principal); N17.0 Acute kidney failure with tubular necrosis; I13.0 Hypertensive heart and chronic kidney disease with heart failure and stage 1 through stage 4 chronic kidney disease, or unspecified chronic kidney disease; I25.10 Atherosclerotic heart disease of native coronary artery without angina pectoris; N18.9 Chronic kidney disease, unspecified; N40.0 Benign prostatic hyperplasia without lower urinary tract symptoms; K27.9 Peptic ulcer, site unspecified, unspecified as acute or chronic, without hemorrhage or perforation; K44.9 Diaphragmatic hernia without obstruction or gangrene; E88.09 Other disorders of plasma-protein metabolism, not elsewhere classified; K57.90 Diverticulosis of intestine, part unspecified, without perforation or abscess without bleeding; I45.10 Unspecified right bundle-branch block; I13.10 Hypertensive heart and chronic kidney disease without heart failure, with stage 1 through stage 4 chronic kidney disease, or unspecified chronic kidney disease; F41.8 Other specified anxiety disorders; K76.0 Fatty (change of) liver, not elsewhere classified; D64.9 Anemia, unspecified; I50.9 Heart failure, unspecified
CPT/HCPCS: 36415; 71010; 74176; 74230; 76775; 80048; 80053; 80069; 80202; 81001; 81003; 82043; 82044; 82270; 82378; 82465; 82550; 82553; 82570; 82607; 82728; 82746; 83540; 83550; 83735; 83880; 84100; 84133; 84300; 84439; 84443; 84484; 84550; 85007; 85025; 85044; 85610; 85730; 87040; 89050; 93005; 93306; 93970; 94664; 99285